=== PATIENT | female | born 2000 | race Caucasian/White ===

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

== ENCOUNTER 2022-02-27 14:21 | Emergency (ER) | payer OTHER, SELFPAY ==
[2022-02-27] VITALS (9 sets, daily range): BP systolic 111–145; BP diastolic 60–101; PULSE 77–105; RESP 18–20; TEMP 36.6–37.1; O2SAT 97–100; BMI 29.0
--- NOTE | 2022-02-27 14:18 | ECG_ITS ---
APPROVED REPORT Exam: Resting ECG HR:104 bpm ECG Measurements Heart Rate 104 AXES AK 135 P 18 QRSd 72 QRS 15 QT 316 T 22 QTc 377 Conclusion SINUS TACHYCARDIA Old anteroseptal changes ABNORMAL RHYTHM ECG UNCONFIRMED REPORT Electronically signed by : Dinesh Krishnan MD 02/28/2022 21:13:16
--- NOTE | 2022-02-27 14:40 | XR_ITS ---
FINAL REPORT CLINICAL HISTORY: chest pain COMPARISON: 12/19/2021 FINDINGS: SINGLE-VIEW CHEST The heart size is normal. The mediastinum is normal. The lungs are clear. There is no pneumothorax. IMPRESSION: No acute cardiopulmonary process. Reviewed, Interpreted and Dictated by Abdi Guerin III, MD Transcribed by Arlette Hall Authenticated and [facility]
--- NOTE | 2022-02-27 14:44 | PC.NURSE ---
XR AT BEDSIDE
[2022-02-27 14:57] LABS: Chloride 103 mmol/L (98-107); Sodium 141 mmol/L (136-145)
[2022-02-27 14:58] LABS: Potassium 3.8 mmoL/L (3.5-5.1)
[2022-02-27 15:00] LABS: Alanine Aminotransferase 24 U/L (12-78); Alkaline Phosphatase 141 U/L (38-126); Aspartate Amino Transferase 35 U/L (14-36); Basophils # 0.2 K/mm3 (0-0.2); Basophils % 1.8 % (0.1-2.0); Bilirubin,Total 0.3 mg/dl (0.2-1.3); Blood Urea Nitrogen 21 mg/dl (7-17); Creatinine Clearance Estimated 116 mL/min (50-200); Eosinophils # 0.3 K/mm3 (0.0-0.4); Eosinophils % 2.4 % (0.1-12.0); Estimated Glomerular Filt Rate 71 ml/min (>60); GFR (African American) 86 ML/MIN (>60); Hematocrit 40.6 % (37.0-47.0); Hemoglobin 13.3 g/dL (12.2-16.2); Lymphocytes # 2.9 K/mm3 (0.7-4.5); Mean Corpuscular HGB Conc 32.7 g/dL (31.8-35.4); Mean Corpuscular Hemoglobin 30.3 pg (27.0-31.2); Mean Corpuscular Volume 92.5 fl (81-99); Mean Platelet Volume 8.4 fl (7.4-10.4); Monocytes # 0.5 K/mm3 (0.1-1.0); Monocytes % 4.1 % (1.7-9.3); Neutrophils # 7.1 K/mm3 (1.8-7.8); Neutrophils % 64.8 % (37.0-80.0); Platelet Count 389 K/mm3 (142-424); Red Blood Count 4.39 M/mm3 (4.20-5.40); Red Cell Distribution Width 14.3 % (11.5-17.5); White Blood Count 10.9 K/mm3 (4.5-13.0)
--- NOTE | 2022-02-27 15:00 | PC.NURSE ---
PT MEDICATED PER EMAR, DENIES NEEDS AT THIS TIME. CALL LIGHT WITHIN REACH
[2022-02-27 15:01] LABS: Albumin Level 4.6 g/dl (3.5-5.0); Albumin/Globulin Ratio 1.5 (1.1-1.8); Anion Gap 16.8 mEq/L (5-15); Calcium 9.2 mg/dl (8.4-10.2); Carbon Dioxide 25 mmol/L (22.0-30.0); Globulin 3.1 g/dL (1.3-3.2); Glucose 116 mg/dl (74-100); Total Protein,Serum 7.7 g/dl (6.3-8.2)
--- NOTE | 2022-02-27 15:01 | HMH.EDGENADL ---
Discharge Plan Disposition Patient Disposition: Home, Self-Care Condition: Good Chief Complaint: Chest Pain Prescriptions Prescriptions: No Action dicyclomine 10 mg capsule 10 mg PO BID Qty: 60 0RF polyethylene glycol 3350 [Miralax] 17 gram/dose powder 17 g PO DAILY Qty: 238 0RF hydroxyzine pamoate 25 mg capsule See Rx Instructions .ROUTE .COMPLEX Qty: 60 0RF Dose Instruction: TAKE 1 CAPSULE BY MOUTH THREE TIMES DAILY NEEDED FOR ITCHING Rx Instructions: TAKE 1 CAPSULE BY MOUTH THREE TIMES DAILY NEEDED FOR ITCHING famotidine 20 MG tablet 20 mg PO DAILY cariprazine 1.5 MG capsule 1.5 mg PO DAILY emrbyljhtjazbph-ccwigziob-UF 118 ML syrup 5 ml PO Q6HP PRN (Reason: Cough) Qty: 240 0RF ondansetron 4 MG tablet,disintegrating 4 mg PO Q8HP PRN (Reason: Nausea) Qty: 20 0RF azithromycin 500 MG tablet 500 mg PO DAILY Qty: 3 0RF albuterol sulfate 8.5 GM HFA aerosol inhaler 6.7 gm IH Q4-6H PRN (Reason: Dyspnea) Qty: 1 0RF prednisone 20 MG tablet 20 mg PO DAILY Qty: 5 0RF benzonatate 100 MG capsule 100 mg PO TIDP PRN (Reason: Cough) Qty: 30 0RF ondansetron 4 MG tablet,disintegrating 4 mg PO Q8HP PRN (Reason: Nausea) Qty: 12 0RF Referrals Follow up/Referrals: Loi Simpson APRN [Primary Care Provider] - See instructions Activity Restrictions/Add. Instructions Additional Instructions/Restrictions: Tylenol and ibuprofen for any body aches or fevers follow-up with your primary care physician and return to the ER for any new or worsening symptoms. Clinical Impressions Clinical Impression: Upper respiratory infection, viral, Atypical chest pain Instructions Patient Instructions: DI for Atypical Chest Pain Discharge ED Provider: Nelson Gomes Adult HPI General Chief complaint: Chest Pain Stated complaint: CHEST PRESSURE Time Seen by Provider: 02/27/22 14:29 Mode of Arrival: Ambulatory Limitations: No Limitations Description of Symptoms (Recalled from ER Triage Doc. by RN): PT C/O CHEST PRESSURE AND COUGH SINCE ABOUT MIDNIGHT. REPORTS PAIN CONSTANT. PAIN IN UPPER CHEST. HAS HAD SIMILAR PAIN ABOUT 1 MONTH AGO History of Present Illness HPI narrative: 22-year-old female who presents with chest pressure and cough since about midnight. Pain has been constant woke her up this morning and states it is similar to the presentation she has had here previously she does have depression and anxiety takes medication daily. Denies fevers chills or body aches no productive cough. No radiation of the pain no associated diaphoresis. Related Data Home Medications Medication Instructions Recorded Confirmed cariprazine 1.5 mg capsule 1.5 mg PO DAILY Anxiety 11/08/21 11/08/21 famotidine 20 mg tablet 20 mg PO DAILY acid reflux 11/08/21 11/08/21 Previous Rx's Medication Instructions Recorded dicyclomine 10 mg capsule 10 mg PO BID #60 caps 10/05/21 polyethylene glycol 3350 17 17 g PO DAILY #238 grams 11/04/21 gram/dose oral powder (Miralax) klalohpvbotuivz-coefggsrbzldegs-FY 5 ml PO Q6HP PRN Cough #240 mL 11/08/21 2 mg-30 mg-10 mg/5 mL oral syrup ondansetron 4 mg disintegrating 4 mg PO Q8HP PRN Nausea #20 tabs 11/08/21 tablet benzonatate 100 mg capsule 100 mg PO TIDP PRN Cough #30 caps 11/30/21 ondansetron 4 mg disintegrating 4 mg PO Q8HP PRN Nausea #12 tabs 11/30/21 tablet albuterol sulfate 90 mcg/actuation 6.7 gm inhalation Q4-6H PRN 12/19/21 aerosol inhaler Dyspnea ##1 azithromycin 500 mg tablet 500 mg PO DAILY #3 tabs 12/19/21 prednisone 20 mg tablet 20 mg PO DAILY Breathing problems 12/19/21 #5 tabs hydroxyzine pamoate 25 mg capsule See Rx Instructions .Route 02/16/22 .COMPLEX #60 caps Allergies Allergy/AdvReac Type Severity Reaction Status Date / Time amoxicillin [AMOXICILLIN] Allergy Mild Verified 11/30/21 08:29 Penicillins Allergy Verified 11/30/21 08:[address] [facility] 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 (Reviewed 02/27/22 @
[2022-02-27 15:17] LABS: Troponin I < 0.01 ng/ml (0.00-0.034)
--- NOTE | 2022-02-27 16:00 | PC.NURSE ---
ROUNDED ON PT AT THIS TIME, PT REPORTS FEELING BETTER. CALL LIGHT WITHIN REACH. NO NEEDS VOICED
[2022-02-27 17:49] LABS: Troponin I < 0.01 ng/ml (0.00-0.034)
[2022-02-27 18:09] LABS: Urine Pregnancy, HCG Qual. Negative (Negative)
== END 2022-02-27 18:27 | disposition home or self-care (01) ==
PROVIDERS: Emergency Provider Student in an Organized Health Care Education/Training Program; PCP Nurse Practitioner Family
DX: R07.89 Other chest pain (principal); R06.02 Shortness of breath; M79.10 Myalgia, unspecified site; J06.9 Acute upper respiratory infection, unspecified; R05.9 Cough, unspecified; R11.0 Nausea; G43.909 Migraine, unspecified, not intractable, without status migrainosus; G47.00 Insomnia, unspecified; F41.0 Panic disorder [episodic paroxysmal anxiety]; F32.A Depression, unspecified; F41.9 Anxiety disorder, unspecified; Z79.51 Long term (current) use of inhaled steroids; Z79.52 Long term (current) use of systemic steroids; Z79.899 Other long term (current) drug therapy; Z88.0 Allergy status to penicillin; Z88.1 Allergy status to other antibiotic agents; Z88.3 Allergy status to other anti-infective agents; Z87.891 Personal history of nicotine dependence
CPT/HCPCS: 71045; 80053; 81025; 84484; 85025; 93005; 96361; 96374; 99285

== ENCOUNTER → 2022-02-28 13:28 | Outpatient (CLI) | payer OTHER, SELFPAY ==
[2022-02-28 12:32] LABS: Adenovirus,PCR Not Detected (NotDetected); Bordetella Pertussis Not Detected (NotDetected); Chlamydophila Pneumoniae, PCR Not Detected (NotDetected); Coronavirus 19, PCR Not Detected (NotDetected); Coronavirus 229E Not Detected (NotDetected); Coronavirus NL63 Not Detected (NotDetected); Coronavirus OC43 Not Detected (NotDetected); Coronovirus HKU1,PCR Not Detected (NotDetected); Human Metapneumovirus Not Detected (NotDetected); Influenza A, PCR Not Detected (NotDetected); Influenza AH1, 2009 Not Detected (NotDetected); Influenza AH1, PCR Not Detected (NotDetected); Influenza AH3,PCR Not Detected (NotDetected); Influenza B, PCR Not Detected (NotDetected); Mycoplasma Pneumoniae, PCR Not Detected (NotDetected); Parainfluenza 1, PCR Not Detected (NotDetected); Parainfluenza 2, PCR Not Detected (NotDetected); Parainfluenza 3, PCR Not Detected (NotDetected); Parainfluenza 4, PCR Not Detected (NotDetected); Respiratory Syncytial Virus Not Detected (NotDetected)
[2022-02-28 14:56] LABS: Rhinovirus/Enterovirus Detected (NotDetected)
== END ==
LOC: LAB.DROPOF 13:29
PROVIDERS: PCP Family Medicine; Visit Provider Family Medicine
DX: Z20.822 Contact with and (suspected) exposure to COVID-19 (principal); R69 Illness, unspecified; B34.8 Other viral infections of unspecified site
CPT/HCPCS: 87581; 87632; 87798; C9803; U0003; U0005

== ENCOUNTER 2022-03-12 19:10 | Emergency (ER) | payer OTHER, SELFPAY ==
[2022-03-12 19:35] VITALS: BP 131/89; PULSE 109; RESP 19; TEMP 37.6; O2SAT 98; BMI 29.7
[2022-03-12 19:49] LABS: UTC Influenza A Antigen Negative (Negative)
[2022-03-12 19:50] VITALS: BP 131/89; PULSE 109; RESP 19; TEMP 37.6; O2SAT 98
[2022-03-12 19:50] LABS: UTC Influenza B Antigen Negative (Negative)
--- NOTE | 2022-03-12 19:55 | EXP.UTC ---
Discharge Plan Disposition Patient Disposition: Home, Self-Care Condition: Good Prescriptions Prescriptions: No Action dicyclomine 10 mg capsule 10 mg PO BID Qty: 60 0RF polyethylene glycol 3350 [Miralax] 17 gram/dose powder 17 g PO DAILY Qty: 238 0RF prednisone 20 mg tablet See Rx Instructions .ROUTE .COMPLEX Qty: 15 0RF Rx Instructions: two daily for 5 days, one daily for 5 days; cephalexin 500 mg capsule 500 mg PO Q8H 10 Days Qty: 30 0RF albuterol sulfate 90 mcg/actuation HFA aerosol inhaler 2 inh IH Q4-6H PRN (Reason: Dyspnea) Qty: 8.5 10RF hydroxyzine pamoate 25 mg capsule See Rx Instructions .ROUTE .COMPLEX Qty: 60 0RF Dose Instruction: TAKE 1 CAPSULE BY MOUTH THREE TIMES DAILY NEEDED FOR ITCHING Rx Instructions: TAKE 1 CAPSULE BY MOUTH THREE TIMES DAILY NEEDED FOR ITCHING famotidine 20 MG tablet 20 mg PO DAILY cariprazine 1.5 MG capsule 1.5 mg PO DAILY Referrals Follow up/Referrals: Deandre King MD [Primary Care Provider] - See instructions Activity Restrictions/Add. Instructions Additional Instructions/Restrictions: No sign of a bacterial infection. Likely viral. Viruses can take 7-14 days to run their course. Nasal saline and bulb syringe or nose Michelle to remove nasal drainage to help with nasal congestion. Hard to eat, drink, sleep with nasal congestion so important to keep this cleaned out. Monitor temp. Tylenol or Motrin as needed for pain or fever Encourage fluids, water, Gatorade, Powerade, Pedialyte if /toddler/child Warm salt water gargles Warm fluids Sore throat lozenges Sleep elevated Humidifier/vaporizer Follow-up immediately for new or worsening symptoms or no noticeable improvement over the next 48-72 hours. Clinical Impressions Clinical Impression: Upper respiratory infection Instructions Patient Instructions: DI for Viral Upper Respiratory Infection -- Adult Discharge ED Provider: Shawna ([facility])Amie [facility] HPI General Stated complaint: temp 103.2 , Mode of Arrival: Ambulatory Source of Information: Patient Limitations: No Limitations Time Seen by Provider: 03/12/22 19:55 Description of Symptoms (Recalled from Triage Doc. by RN): PATIENT C/O FEVER, HEADACHE, CHILLS, VOMITING, SORE THROAT AND BODY ACHES SINCE THIS MORNING HEENT Symptoms (Recalled from RN notes): Yes Resp Symptoms (Recalled from RN notes): No Skin Symptoms (Recalled from RN notes): No MS Symptoms (Recalled from RN notes): No Functional Status (Recalled from RN notes): WNL History of Present Illness Provider Complaint: 22 yr old female presents for fever, sore throat, body aches and chills that started this am Related Data Home Medications Medication Instructions Recorded Confirmed cariprazine 1.5 mg capsule 1.5 mg PO DAILY Anxiety 11/08/21 02/28/22 famotidine 20 mg tablet 20 mg PO DAILY acid reflux 11/08/21 02/28/22 Previous Rx's Medication Instructions Recorded dicyclomine 10 mg capsule 10 mg PO BID #60 caps 10/05/21 polyethylene glycol 3350 17 17 g PO DAILY #238 grams 11/04/21 gram/dose oral powder (Miralax) hydroxyzine pamoate 25 mg capsule See Rx Instructions .Route 02/16/22 .COMPLEX #60 caps albuterol sulfate 90 mcg/actuation 2 inh inhalation Q4-6H PRN Dyspnea 02/28/22 aerosol inhaler #8.5 grams cephalexin 500 mg capsule 500 mg PO Q8H 10 days #30 caps 02/28/22 prednisone 20 mg tablet See Rx Instructions .Route 02/28/22 .COMPLEX #15 tabs Allergies Allergy/AdvReac Type Severity Reaction Status Date / Time amoxicillin [AMOXICILLIN] Allergy Mild Verified 02/28/22 09:03 Penicillins Allergy Verified 02/28/22 09:03 Worker's Comp Is this a Worker's Comp case?: No PFSH PFSH 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 , [employer]) Anxiety Depression History of anemia History of gastroesophageal reflux (GERD) Insomnia Migraine Thyroid disease Surgical History (Reviewed 03/12/22
[2022-03-12 20:06] LABS: UTC Strep Screen (Rapid) Positive (Negative)
== END 2022-03-12 20:05 | disposition home or self-care (01) ==
PROVIDERS: Emergency Provider Nurse Practitioner Family; PCP Family Medicine
DX: J06.9 Acute upper respiratory infection, unspecified (principal)
CPT/HCPCS: 87804; 87880; 99212; G0463

== ENCOUNTER 2022-04-16 11:55 | Emergency (ER) | payer OTHER, SELFPAY ==
[2022-04-16 12:22] LABS: UTC Influenza A Antigen Negative (Negative); UTC Strep Screen (Rapid) Positive (Negative)
[2022-04-16 12:23] LABS: UTC Influenza B Antigen Negative (Negative)
[2022-04-16 12:25] VITALS: BP 124/81; PULSE 99; RESP 16; TEMP 37.5; O2SAT 100
--- NOTE | 2022-04-16 12:44 | EXP.UTC ---
Discharge Plan Disposition Patient Disposition: Home, Self-Care Condition: Good Prescriptions Prescriptions: New cefdinir 300 mg capsule 300 mg PO BID Qty: 20 0RF No Action dicyclomine 10 mg capsule 10 mg PO BID Qty: 60 0RF polyethylene glycol 3350 [Miralax] 17 gram/dose powder 17 g PO DAILY Qty: 238 0RF prednisone 20 mg tablet See Rx Instructions .ROUTE .COMPLEX Qty: 15 0RF Rx Instructions: two daily for 5 days, one daily for 5 days; cephalexin 500 mg capsule 500 mg PO Q8H 10 Days Qty: 30 0RF albuterol sulfate 90 mcg/actuation HFA aerosol inhaler 2 inh IH Q4-6H PRN (Reason: Dyspnea) Qty: 8.5 10RF famotidine 20 MG tablet 20 mg PO DAILY cariprazine 1.5 MG capsule 1.5 mg PO DAILY hydroxyzine pamoate 25 mg capsule See Rx Instructions .ROUTE .COMPLEX Rx Instructions: TAKE 1 CAPSULE BY MOUTH THREE TIMES DAILY NEEDED FOR ITCHING azithromycin [azithromycin] 250 mg tablet 250 mg PO DIRECTED 4 Days Qty: 4 0RF Rx Instructions: one (1) tablet day #2 thru #5 -first dose given in [facility] Referrals Follow up/Referrals: Carli Georges PA [Primary Care Provider] - See instructions Activity Restrictions/Add. Instructions Additional Instructions/Restrictions: *Monitor Temp, Over the counter Motrin or Tylenol as directed/as needed Tylenol every 4 hours and Motrin every 6 hours (as long as your family doctor has told you that you can take it) for fever or pain. and straight to ER if unable to lower temp less than 101.0 after medication given *Warm salt water gargles may help to soothe the throat *Throat Lozenges? *Warm fluids like tea with honey may help to soothe the throat? *Sleep elevated *Humidifier/Vaporizer *If you did not take Penicillin shot or was unable to, start taking antibiotic immediately and make sure that you take it for the FULL length of time although you should start to feel better in 24-48 hours *change toothbrush and toothpaste 24-48 hours after starting to take antibiotics so you do not reinfect yourself Monitor Temp. Tylenol and/or Ibuprofen as needed. ER if fever is no less than 101 despite alternating Tylenol and Ibuprofen * Encourage fluids, water, Gatorade, powerade, pedialyte if infant/toddler/or child *Cold fluids, popsicles and ice cream may feel good on his throat Follow up IMMEDIATELY for new or worsening symptoms or no Noticeable improvement over the next 48-72 hours. 911 for difficulty breathing or swallowing Clinical Impressions Clinical Impression: Strep throat Instructions Patient Instructions: Strep Throat, DI for Strep Throat Discharge ED Provider: Rosa Purcell [facility] HPI General Stated complaint: Sore throat,Bodyache,Headache Mode of Arrival: Ambulatory Source of Information: Patient Limitations: No Limitations Time Seen by Provider: 04/16/22 12:44 Description of Symptoms (Recalled from Triage Doc. by RN): pt comes in with c/o body aches, sore throat, headaches, sweats/chills, fever that began yesterday HEENT Symptoms (Recalled from RN notes): Yes Resp Symptoms (Recalled from RN notes): Yes Skin Symptoms (Recalled from RN notes): No MS Symptoms (Recalled from RN notes): No Functional Status (Recalled from RN notes): n/a History of Present Illness Provider Complaint: Patient states that she started feeling bad yesterday states that she has been having fever, chills, sore throat and headache along with feeling achy all over State that today her throat was still hurting and feels like it does when she has strep throat Related Data Home Medications Medication Instructions Recorded Confirmed cariprazine 1.5 mg capsule 1.5 mg PO DAILY Anxiety 11/08/21 04/16/22 famotidine 20 mg tablet 20 mg PO DAILY acid reflux 11/08/21 02/28/22 hydroxyzine pamoate 25 mg capsule See Rx Instructions .Route 04/16/22 04/16/22 .COMPLEX Anxiety Previous Rx's Medication Instructions Rec
[2022-04-16 12:56] VITALS: BP 124/81; PULSE 99; RESP 16; TEMP 37.5
== END 2022-04-16 13:02 | disposition home or self-care (01) ==
PROVIDERS: Emergency Provider Nurse Practitioner; PCP Physician Assistant
DX: J10.1 Influenza due to other identified influenza virus with other respiratory manifestations (principal)
CPT/HCPCS: 87804; 87880; 99212; G0463

== ENCOUNTER → 2022-06-02 14:29 | Outpatient (CLI) | payer OTHER, SELFPAY ==
--- NOTE | 2022-06-02 14:32 | US_ITS ---
FINAL REPORT CLINICAL HISTORY: pelvic pain COMPARISON: None FINDINGS: Transvaginal sonographic images of the pelvis were obtained. The uterus measures 4.3 x 3.5 x 5.3 cm. The endometrium is prominent but within normal limits at 12 mm. No uterine mass is identified. The right ovary measures 4.1 cm in length and left ovary measures 1.8 cm in length. There is a septated cystic mass in the right ovary measuring 2.3 cm, favor complex cyst. The left ovary is unremarkable. There is a small amount of pelvic free fluid, physiologic or reactive. Normal blood flow seen to the ovaries. IMPRESSION: Right ovarian complex cyst. Reviewed, Interpreted and Dictated by Abdi Guerin III, MD Transcribed by Krysten Thomas Authenticated and [facility]
== END ==
LOC: RAD 14:30
PROVIDERS: PCP Nurse Practitioner Family; Visit Provider Obstetrics & Gynecology
DX: R10.2 Pelvic and perineal pain (principal)
CPT/HCPCS: 76830

== ENCOUNTER 2022-06-04 20:34 | Emergency (ER) | payer OTHER, SELFPAY ==
[2022-06-04 20:35] VITALS: BP 146/96; PULSE 103; RESP 20; TEMP 37; O2SAT 98; BMI 31.3
--- NOTE | 2022-06-04 20:54 | HMH.EDUPEXT ---
Discharge Plan Disposition Patient Disposition: Home, Self-Care Prescriptions Prescriptions: New meloxicam 15 mg tablet 15 mg PO DAILY Qty: 10 0RF No Action drospirenone-ethinyl estradiol [MICHELLE (28)] 3-0.02 mg tablet 1 tab PO DAILY Qty: 28 3RF hydroxyzine pamoate 25 mg capsule See Rx Instructions .ROUTE .COMPLEX Qty: 60 0RF Dose Instruction: TAKE 1 CAPSULE BY MOUTH THREE TIMES DAILY NEEDED FOR ITCHING Rx Instructions: TAKE 1 CAPSULE BY MOUTH THREE TIMES DAILY NEEDED FOR ITCHING cariprazine 1.5 MG capsule 1.5 mg PO DAILY Referrals Follow up/Referrals: Carli Georges PA [Primary Care Provider] - See instructions Clinical Impressions Clinical Impression: Sprain of right upper arm Instructions Patient Instructions: Sprain Discharge ED Provider: Sola (ED)Adolfo Upper Extremity HPI General Chief Complaint: Extremity Injury, Upper Stated Complaint: Right arm pain Time Seen by Provider: 06/04/22 20:54 Mode of Arrival: Ambulatory Source of Information: Patient and Medical Record Limitations: No Limitations Description of Symptoms (Recalled from ER Triage Doc. by RN): pt reports that she has had pain in her bicep for a long time tonight she stated that while Bowling she had pain that goes up into her shoulder. the pt stated she thinks she pulled something History of Present Illness HPI narrative: hx of biceps tendon pain at times and tonight while bowling has rt shoulder pain also - no other trauma MD complaint: injury to: right, shoulder and elbow Onset (ago): hour(s) Other Extremity Injury: Right: elbow and shoulder Other injuries: none Handedness: right Place: home Severity: mild Exacerbating factors: movement of extremity Context: sports-related injury Associated symptoms: denies other symptoms Related Data Home Medications Medication Instructions Recorded Confirmed cariprazine 1.5 mg capsule 1.5 mg PO DAILY Anxiety 11/08/21 05/24/22 Previous Rx's Medication Instructions Recorded hydroxyzine pamoate 25 mg capsule See Rx Instructions .Route 05/23/22 .COMPLEX #60 caps MICHELLE (28) 3 mg-0.02 mg tablet 1 tab PO DAILY #28 tabs 05/24/22 (drospirenone-ethinyl estradiol) meloxicam 15 mg tablet 15 mg PO DAILY #10 tabs 06/04/22 Allergies Allergy/AdvReac Type Severity Reaction Status Date / Time amoxicillin [AMOXICILLIN] Allergy Mild Verified 05/24/22 13:12 Penicillins Allergy Verified 05/24/22 13:12 [facility] Disclaimer: The information contained in this section may have been updated after the patient was seen, as this information can be updated by other users. 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 Acne Anxiety Depression History of anemia History of gastroesophageal reflux (GERD) Insomnia Migraine PCOS (polycystic ovarian syndrome) Pelvic pain Tendinitis of right forearm Thyroid disease Surgical History History of tympanostomy tube placement Family History Other Diabetes Social History Smoking Status: Never smoker second hand exposure: No alcohol intake: never substance use type: denies use current occupational status: other Travel in the last 8 weeks: None household members: family housing: house number of children: 0 current occupational exposures/hazards: No ROS Obtained: Yes All systems reviewed & no additional complaints except as documented Physical Exam General General appearance: alert Head Head exam: normocephalic Eye Eye exam: Present PERRL and EOMI ENT ENT exam: Present mucous membranes moist Neck Neck exam: Present trachea midline Respiratory Respiratory exam: Absent respiratory distress Cardiovascular Cardiovascular exam: Present regular rate Abdominal Exam Abdominal exam: Present soft
[2022-06-04 21:14] VITALS: BP 137/79; PULSE 87; RESP 20; TEMP 37; O2SAT 98
--- NOTE | 2022-06-04 21:17 | PC.NURSE ---
Dr. Selby at [facility] speaking with pt
== END 2022-06-04 21:16 | disposition home or self-care (01) ==
PROVIDERS: Emergency Provider Emergency Medicine; PCP Physician Assistant
DX: S46.911A Strain of unspecified muscle, fascia and tendon at shoulder and upper arm level, right arm, initial encounter (principal); X58.XXXA Exposure to other specified factors, initial encounter; F41.9 Anxiety disorder, unspecified; K21.9 Gastro-esophageal reflux disease without esophagitis; D64.9 Anemia, unspecified; G43.909 Migraine, unspecified, not intractable, without status migrainosus; E28.2 Polycystic ovarian syndrome; M65.231 Calcific tendinitis, right forearm; Z83.3 Family history of diabetes mellitus
CPT/HCPCS: 99283; 99284

== ENCOUNTER 2022-06-13 17:15 | Emergency (ER) | payer OTHER, SELFPAY ==
[2022-06-13 17:27] VITALS: BP 137/88; PULSE 119; RESP 16; TEMP 36.7; O2SAT 98; BMI 31.3
[2022-06-13 17:55] VITALS: BP 137/88; PULSE 119; RESP 20; TEMP 36.7; O2SAT 98; BMI 31.4
--- NOTE | 2022-06-13 18:35 | EXP.UTC ---
Discharge Plan Disposition Patient Disposition: Home, Self-Care Condition: Good Prescriptions Prescriptions: No Action cariprazine 1.5 MG capsule 1.5 mg PO DAILY hydroxyzine pamoate 25 mg capsule See Rx Instructions .ROUTE .COMPLEX Rx Instructions: TAKE 1 CAPSULE BY MOUTH THREE TIMES DAILY NEEDED FOR ITCHING drospirenone-ethinyl estradiol [MICHELLE (28)] 3-0.02 mg tablet 1 tab PO DAILY Referrals Follow up/Referrals: Loi Simpson APRN [Primary Care Provider] - See instructions Activity Restrictions/Add. Instructions Additional Instructions/Restrictions: *Monitor Temp, Over the counter Motrin or Tylenol as directed/as needed Tylenol every 4 hours and Motrin every 6 hours (as long as your family doctor has told you that you can take it) for fever or pain. and straight to ER if unable to lower temp less than 101.0 after medication given *Warm salt water gargles may help to soothe the throat *Throat Lozenges? *Warm fluids like tea with honey may help to soothe the throat? *Sleep elevated *Humidifier/Vaporizer Follow up IMMEDIATELY for new or worsening symptoms or no Noticeable improvement over the next 48-72 hours. 911 for difficulty breathing or swallowing You were tested for today for COVID19 your test result should be back in the next 24-48 hours, you may check your results on the [facility] [employer] [facility] Clinical Impressions Clinical Impression: Migraine, Viral syndrome Stand Alone Forms Stand Alone Forms: Work/School Release Instructions Patient Instructions: DI for Viral Syndrome Discharge ED Provider: Rosa Purcell [facility] General Stated complaint: CHAN Mode of Arrival: Ambulatory Source of Information: Patient Limitations: No Limitations Time Seen by Provider: 06/13/22 18:36 Description of Symptoms (Recalled from Triage Doc. 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 06/13/22 06/13/22 estradiol 0.02 mg tablet (MICHELLE (28)) hydroxyzine pamoate 25 mg capsule See Rx Instructions .Route 06/13/22 06/13/22 .COMPLEX . Allergies Allergy/AdvReac Type Severity Reaction Status Date / Time amoxicillin [AMOXICILLIN] Allergy Mild Verified 06/13/22 18:07 Penicillins Allergy Verified 06/13/22 18:07 Worker's Comp Is this a Worker's Comp case?: No [facility] Disclaimer: The information contained in this section may have been updated after the patient was seen, as this information can be updated by other users. 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 Acne Anxiety Depression History of anemia History of gastroesophageal reflux (GERD) Insomnia Migraine PCOS (polycystic ovarian syndrome) Pelvic pain Tendinitis of right forearm Thyroid disease Surgical History History of tympanostomy tube placement Family History Other Diabetes Social History Smoking Status: Never smoker second hand exposure: No al
[2022-06-13 18:46] LABS: UTC Pregnancy Test, Urine Negative (Negative)
[2022-06-13 19:12] LABS: Coronavirus 19, PCR Not Detected (NotDetected); Influenza A, PCR Not Detected (NotDetected); Influenza B, PCR Not Detected (NotDetected)
[2022-06-13 19:30] VITALS: BP 137/88; PULSE 110; RESP 20; TEMP 36.7; O2SAT 98
== END 2022-06-13 19:29 | disposition home or self-care (01) ==
LOC: ER 17:24 → UTC 17:26
PROVIDERS: Emergency Provider Nurse Practitioner; PCP Nurse Practitioner Family
DX: G43.909 Migraine, unspecified, not intractable, without status migrainosus (principal); B34.9 Viral infection, unspecified
CPT/HCPCS: 81025; 96372; 99212; 99214; C9803; G0463; U0003; U0005

== ENCOUNTER 2022-07-17 08:09 | Emergency (ER) | payer OTHER, SELFPAY ==
[2022-07-17 08:11] VITALS: BP 129/96; PULSE 91; RESP 17; TEMP 36.5; O2SAT 99; BMI 31.3
[2022-07-17 08:14] VITALS: BP 129/96; PULSE 97; O2SAT 99
--- NOTE | 2022-07-17 08:19 | XR_ITS ---
FINAL REPORT CLINICAL HISTORY: 5th [place] base pain FINDINGS: 3 views of the right foot were obtained. There is no acute fracture or dislocation. The joint spaces are intact. The soft tissues are unremarkable. IMPRESSION: No acute process. Reviewed, Interpreted and Dictated by Darrius Corado MD Transcribed by Lance Rome Authenticated and . [facility]
--- NOTE | 2022-07-17 08:26 | PC.NURSE ---
PT TO XR AT THIS TIME
--- NOTE | 2022-07-17 08:31 | PC.NURSE ---
PT RETURNED FROM XR
--- NOTE | 2022-07-17 08:35 | HMH.EDGENADL ---
Discharge Plan Disposition Patient Disposition: Home, Self-Care Condition: Good Chief Complaint: PAIN Prescriptions Prescriptions: No Action drospirenone-ethinyl estradiol [MICHELLE (28)] 3-0.02 mg tablet 1 tab PO DAILY Qty: 28 11RF cariprazine 1.5 MG capsule 1.5 mg PO DAILY hydroxyzine pamoate 25 mg capsule See Rx Instructions .ROUTE .COMPLEX Rx Instructions: TAKE 1 CAPSULE BY MOUTH THREE TIMES DAILY NEEDED FOR ITCHING Referrals Follow up/Referrals: Loi Simpson APRN [Primary Care Provider] - See instructions Clinical Impressions Clinical Impression: Acute foot pain Instructions Patient Instructions: DI for Acute Pain -- Adult Discharge ED Provider: Sharad Alonso General Adult HPI General Chief complaint: PAIN Stated complaint: right foot pain, no accident Time Seen by Provider: 07/17/22 08:17 Mode of Arrival: Ambulatory Limitations: No Limitations Description of Symptoms (Recalled from ER Triage Doc. by RN): PT WITH C/O RIGHT FOOT PAIN. PAIN STARTED ON SUNDAY, NO INJURY. BURNING PAIN TO THE PLANTAR SURFACE OF FOOT History of Present Illness HPI narrative: 22yo F presents to the ER secondary to pain at the base of her right fifth metatarsal. Denies any specific injury. Ongoing for 3 to 4 days. No previous surgery. Related Data Home Medications Medication Instructions Recorded Confirmed cariprazine 1.5 mg capsule 1.5 mg PO DAILY Anxiety 11/08/21 06/13/22 hydroxyzine pamoate 25 mg capsule See Rx Instructions .Route 06/13/22 06/13/22 .COMPLEX . Previous Rx's Medication Instructions Recorded drospirenone 3 mg-ethinyl 1 tab PO DAILY . #28 tabs 07/13/22 estradiol 0.02 mg tablet (MICHELLE (28)) Allergies Allergy/AdvReac Type Severity Reaction Status Date / Time amoxicillin [AMOXICILLIN] Allergy Mild Verified 06/13/22 18:07 Penicillins Allergy Verified 06/13/22 18:07 [facility] Disclaimer: The information contained in this section may have been updated after the patient was seen, as this information can be updated by other users. 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 Acne Anxiety Depression History of anemia History of gastroesophageal reflux (GERD) Insomnia Migraine PCOS (polycystic ovarian syndrome) Pelvic pain Tendinitis of right forearm Thyroid disease Surgical History History of tympanostomy tube placement Family History Other Diabetes Social History Smoking Status: Never smoker second hand exposure: No alcohol intake: never substance use type: denies use current occupational status: other Travel in the last 8 weeks: None household members: family housing: house number of children: 0 current occupational exposures/hazards: No ROS Obtained: Yes Systems reviewed as appropriate & no additional complaints except as documented Physical Exam General General appearance: alert and in no apparent distress Head Head exam: atraumatic and normocephalic Eye Eye exam: Present normal appearance and PERRL Neck Neck exam: Present normal inspection and trachea midline Respiratory Respiratory exam: Present normal lung sounds bilaterally; Absent respiratory distress Cardiovascular Cardiovascular exam: Present regular rate and normal rhythm Extremities Exam Extremities exam: Present normal inspection, tenderness (Right foot, base of fifth metatarsal) and normal capillary refill; Absent edema Neurological Exam Neurological exam: Present alert and oriented X3 Psychiatric Psychiatric exam: Present normal affect Skin Skin exam: Present warm, dry and intact Medical Decision Making Kulwant Inquiry Pt receiving controlled substance: No Kulwant was queried for this patient: No Vital Signs: 07/17/22 08:11 07/17/22 08:14 07/17/22 09:00 [place]
[2022-07-17 09:00] VITALS: BP 116/82; PULSE 87; O2SAT 98
--- NOTE | 2022-07-17 09:07 | PC.NURSE ---
ROUNDED ON PT, UPDATED ON POC. NO NEEDS AT THIS TIME
[2022-07-17 09:30] VITALS: BP 113/80; PULSE 88; O2SAT 99
--- NOTE | 2022-07-17 09:33 | PC.NURSE ---
rounded on patient; no needs at this time. call light within reach
--- NOTE | 2022-07-17 09:48 | PC.NURSE ---
contacted rad to check on status xray results, rad states will send preliminary results down to ER
[2022-07-17 09:55] VITALS: BP 113/80; PULSE 80; RESP 17; TEMP 36.5; O2SAT 98
== END 2022-07-17 09:55 | disposition home or self-care (01) ==
PROVIDERS: Emergency Provider Family Medicine; PCP Nurse Practitioner Family
DX: M79.671 Pain in right foot (principal)
CPT/HCPCS: 73630; 99283; 99284

== ENCOUNTER → 2022-07-19 14:55 | Outpatient (CLI) | payer OTHER, SELFPAY ==
--- NOTE | 2022-07-19 15:04 | US_ITS ---
FINAL REPORT CLINICAL HISTORY: following right ovarian cyst COMPARISON: 06/02/2022 FINDINGS: Transvaginal sonographic images of the pelvis were obtained. The uterus measures 6.0 x 5.4 x 4.0 cm. The endometrium measures 5 mm, which is within normal limits. No uterine mass is identified. The right ovary measures 2.8 cm in length and left ovary measures 1.6 cm in length. Normal blood flow seen to the ovaries. There is a persistent or recurrent cyst in the right ovary measuring 2.7 x 1.8 cm. The previously noted internal septations in the cyst are not seen on today's exam. Findings are presumed to be physiologic. There is no evidence of free fluid. IMPRESSION: Persistent or recurrent right ovarian cyst. Findings are presumed to be physiologic however, recommend close gynecological follow-up. Reviewed, Interpreted and Dictated by Darrius Corado MD Transcribed by Candi Peace Authenticated and [facility]
== END ==
LOC: RAD 14:55
PROVIDERS: PCP Nurse Practitioner Family; Visit Provider Obstetrics & Gynecology
DX: N83.201 Unspecified ovarian cyst, right side (principal)
CPT/HCPCS: 76830

== ENCOUNTER 2022-08-04 17:56 | Emergency (ER) | payer OTHER, SELFPAY ==
[2022-08-04 18:50] VITALS: BP 131/85; PULSE 89; RESP 16; TEMP 36.9; O2SAT 99; BMI 32.1
--- NOTE | 2022-08-04 19:39 | EXP.UTC ---
Discharge Plan Disposition Patient Disposition: Home, Self-Care Condition: Good Prescriptions Prescriptions: New kezoosswotosdif-eleafltnj-GA [Bromfed DM] 2-30-10 mg/5 mL syrup 10 ml PO Q4-6H PRN (Reason: cold symptoms) Qty: 118 0RF No Action levonorgestrel-ethinyl estrad [Aviane] 0.1-20 mg-mcg tablet 1 tab PO DAILY Qty: 28 3RF cariprazine 1.5 MG capsule 1.5 mg PO DAILY hydroxyzine pamoate 25 mg capsule See Rx Instructions .ROUTE .COMPLEX Rx Instructions: TAKE 1 CAPSULE BY MOUTH THREE TIMES DAILY NEEDED FOR ITCHING Referrals Follow up/Referrals: Loi Simpson APRN [Primary Care Provider] - See instructions Clinical Impressions Clinical Impression: Acute upper respiratory infection Instructions Patient Instructions: DI for Viral Upper Respiratory Infection -- Adult Discharge ED Provider: Arleen Menard [facility] General Stated complaint: SORE THROAT EAR Mode of Arrival: Ambulatory Source of Information: Patient Limitations: No Limitations Time Seen by Provider: 08/04/22 19:31 Description of Symptoms (Recalled from Triage Doc. 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 She reports that she has had a cough, runny nose, sore throat, and diarrhea today. She states that she does not feel like she has strep or Covid as she has had these before and they felt different than what she is feeling right now. Related Data Home Medications Medication Instructions Recorded Confirmed cariprazine 1.5 mg capsule 1.5 mg PO DAILY Anxiety 11/08/21 07/21/22 hydroxyzine pamoate 25 mg capsule See Rx Instructions .Route 06/13/22 07/21/22 .COMPLEX . Previous Rx's Medication Instructions Recorded levonorgestrel-ethinyl estradiol 1 tab PO DAILY #28 tabs 07/21/22 0.1 mg-20 mcg tablet (Aviane) soyudavftzlpxwj-dswyzrsjllokpis-JX 10 ml PO Q4-6H PRN cold symptoms 08/04/22 2 mg-30 mg-10 mg/5 mL oral syrup #118 mL (Bromfed DM) Allergies Allergy/AdvReac Type Severity Reaction Status Date / Time amoxicillin [AMOXICILLIN] Allergy Mild Verified 07/21/22 14:50 Penicillins Allergy Verified 07/21/22 14:50 Worker's Comp Is this a Worker's Comp case?: [facility] Dis[facility]: The information contained in this section may have been updated after the patient was seen, as this information can be updated by other users. 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 Acne Anxiety Depression History of anemia History of gastroesophageal reflux (GERD) Insomnia Migraine PCOS (polycystic ovarian syndrome) Pelvic pain Right ovarian cyst Tendinitis of right forearm Thyroid disease Surgical History History of tympanostomy tube placement Family History Other Diabetes Social History Smoking Status: Never smoker second hand exposure: No alcohol intake: never substance use type: denies use current occupational status: other Travel in the last 8 weeks: None household members: family housing: house number of children: 0 current occupational exposures/hazards: No ROS Obtained: Yes All systems reviewed & no additional complaints except as documented Constitutional Constitutional: Reports system reviewed and no additional complaints, except as documented, Reports headache(s) and Reports malaise Eyes Eyes: Reports system reviewed and no additional complaints, except as documented ENT Ears, Nose,
[2022-08-04 19:50] LABS: UTC Influenza A Antigen Negative (Negative)
[2022-08-04 19:51] LABS: UTC Influenza B Antigen Negative (Negative)
[2022-08-04 19:52] VITALS: BP 131/85; PULSE 89; RESP 16; TEMP 36.9; O2SAT 99
== END 2022-08-04 19:55 | disposition home or self-care (01) ==
PROVIDERS: Emergency Provider Nurse Practitioner Family; PCP Nurse Practitioner Family
DX: J06.9 Acute upper respiratory infection, unspecified (principal); J02.9 Acute pharyngitis, unspecified; R05.9 Cough, unspecified
CPT/HCPCS: 87804; 99212; 99214; G0463

== ENCOUNTER 2022-09-01 18:06 | Emergency (ER) | payer OTHER, SELFPAY ==
[2022-09-01 18:06] VITALS: BP 133/87; PULSE 99; RESP 16; TEMP 37; O2SAT 97; BMI 32.8
--- NOTE | 2022-09-01 18:26 | EXP.UTC ---
Discharge Plan Disposition Patient Disposition: Home, Self-Care Condition: Good Prescriptions Prescriptions: New ciprofloxacin HCl 0.3 % drops See Rx Instructions .ROUTE .COMPLEX Qty: 5 0RF Rx Instructions: put 1 drp in right eye every 2hr x2days; then 4 times/day x5days methylprednisolone 4 mg Tablets,Dose Pack 4 mg PO DIRECTED Qty: 21 0RF ftzqybkkghahlqw-dnxqrosiz-OG [Bromfed DM] 2-30-10 mg/5 mL Syrup 2.5 ml PO Q6H PRN (Reason: Cough) Qty: 120 0RF cefdinir 300 mg capsule 300 mg PO BID Qty: 20 0RF No Action levonorgestrel-ethinyl estrad [Aviane] 0.1-20 mg-mcg tablet 1 tab PO DAILY Qty: 28 3RF cariprazine 1.5 MG capsule 1.5 mg PO DAILY hydroxyzine pamoate 25 mg capsule See Rx Instructions .ROUTE .COMPLEX Rx Instructions: TAKE 1 CAPSULE BY MOUTH THREE TIMES DAILY NEEDED FOR ITCHING nbknyslilyxcjzk-upjyajiqq-AJ [Bromfed DM] 2-30-10 mg/5 mL syrup 10 ml PO Q4-6H PRN (Reason: cold symptoms) Qty: 118 0RF Referrals Follow up/Referrals: Loi Simpson APRN [Primary Care Provider] - See instructions Activity Restrictions/Add. Instructions Additional Instructions/Restrictions: Drink plenty of fluids. Take tylenol or ibuprofen for pain or fever. Take the medications as directed. Follow up with your regular doctor. GO TO THE ER FOR ANY WORSENING SYMPTOMS Throw your tooth brush away and get a new one. Clinical Impressions Clinical Impression: Strep throat, Conjunctivitis of right eye Stand Alone Forms Stand Alone Forms: Work/School Release Instructions Patient Instructions: Strep Throat, DI for Strep Throat Discharge ED Provider: Syed Orourke [facility] General Stated complaint: right eye redness Time Seen by Provider: 09/01/22 18:25 History of Present Illness Provider Complaint: She states that for the past 2 days she has had sore throat and right eye redness and matting. She denies fever. She denies any known eye injury or foreign body. Related Data Home Medications Medication Instructions Recorded Confirmed cariprazine 1.5 mg capsule 1.5 mg PO DAILY Anxiety 11/08/21 07/21/22 hydroxyzine pamoate 25 mg capsule See Rx Instructions .Route 06/13/22 07/21/22 .COMPLEX . Previous Rx's Medication Instructions Recorded levonorgestrel-ethinyl estradiol 1 tab PO DAILY #28 tabs 07/21/22 0.1 mg-20 mcg tablet (Aviane) nwfgheolpvuxowv-orbviabiwgkojfw-HE 10 ml PO Q4-6H PRN cold symptoms 08/04/22 2 mg-30 mg-10 mg/5 mL oral syrup #118 mL (Bromfed DM) xuxdpcobgfinptt-oqjhtbartkqotba-FL 2.5 ml PO Q6H PRN Cough #120 mL 09/01/22 2 mg-30 mg-10 mg/5 mL oral syrup (Bromfed DM) cefdinir 300 mg capsule 300 mg PO BID #20 caps 09/01/22 ciprofloxacin HCl 0.3 % eye drops See Rx Instructions ophthalmic 09/01/22 (eye) .COMPLEX #5 mL methylprednisolone 4 mg tablets in 4 mg PO DIRECTED #21 tabs 09/01/22 a dose pack Allergies Allergy/AdvReac Type Severity Reaction Status Date / Time amoxicillin [AMOXICILLIN] Allergy Mild Verified 07/21/22 14:50 Penicillins Allergy Verified 07/21/22 14:50 PFSH PFSH Disclaimer: The information contained in this section may have been updated after the patient was seen, as this information can be updated by other users. 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 Acne Anxiety Depression History of anemia History of gastroesophageal reflux (GERD) Insomnia Migraine PCOS (polycystic ovarian syndrome) Pelvic pain Right ovarian cyst Tendinitis of right forearm Thyroid disease Surgical History History of tympanostomy tube placement Family History Other Diabetes Social History Smoking Status: Never smoker second hand exposure: No alcohol intake: never substance use type: denies use current occupa
[2022-09-01 18:35] LABS: UTC Strep Screen (Rapid) Positive (Negative)
[2022-09-01 19:04] VITALS: BP 133/87; PULSE 99; RESP 16; TEMP 37; O2SAT 97
== END 2022-09-01 19:07 | disposition home or self-care (01) ==
PROVIDERS: Emergency Provider Nurse Practitioner Family; PCP Nurse Practitioner Family
DX: J02.0 Streptococcal pharyngitis (principal); H10.31 Unspecified acute conjunctivitis, right eye
CPT/HCPCS: 87880; 99212; 99214; G0463

== ENCOUNTER 2022-10-02 17:02 | Emergency (ER) | payer OTHER, SELFPAY ==
[2022-10-02 17:05] VITALS: BP 129/80; PULSE 86; RESP 21; TEMP 37.1; O2SAT 99; BMI 33.5
--- NOTE | 2022-10-02 17:18 | EXP.UTC ---
Discharge Plan Disposition Patient Disposition: Home, Self-Care Condition: Good Prescriptions Prescriptions: New cefdinir 300 mg capsule 300 mg PO BID Qty: 20 0RF No Action cariprazine 1.5 MG capsule 1.5 mg PO DAILY levonorgestrel-ethinyl estrad [Aviane] 0.1-20 mg-mcg tablet 1 tab PO DAILY hydroxyzine pamoate 25 mg capsule 25 mg PO DAILY Rx Instructions: TAKE 1 CAPSULE BY MOUTH THREE TIMES DAILY NEEDED FOR ITCHING Referrals Follow up/Referrals: Loi Simpson APRN [Primary Care Provider] - See instructions Activity Restrictions/Add. Instructions Additional Instructions/Restrictions: Take medication as prescribed Follow up with your Family Doctor if no improvement or any worsening of symptoms Return if needed Straight to ER if any life threatening symptoms Clinical Impressions Clinical Impression: Otitis media Instructions Patient Instructions: Middle Ear Infection, Cefdinir Discharge ED Provider: Rosa Purcell [facility] General Stated complaint: ear and head pain Mode of Arrival: Ambulatory Source of Information: Patient Limitations: No Limitations Time Seen by Provider: 10/02/22 17:18 Description of Symptoms (Recalled from Triage Doc. by RN): PATIENT C/O BILATERAL EAR PAIN (WORSE ON RIGHT SIDE) X 1.5 WEEKS, LIGHT-HEADED, AND FEVER HEENT Symptoms (Recalled from RN notes): Yes Resp Symptoms (Recalled from RN notes): No Skin Symptoms (Recalled from RN notes): No MS Symptoms (Recalled from RN notes): No Functional Status (Recalled from RN notes): WNL History of Present Illness Provider Complaint: Patient states that she has been having pain in both ears but worse in her right for about a week and half States that she was treated for ear infection about a month ago and dx with ear infection but now it is hurting again Related Data Home Medications Medication Instructions Recorded Confirmed cariprazine 1.5 mg capsule 1.5 mg PO DAILY Depression 11/08/21 10/02/22 hydroxyzine pamoate 25 mg capsule 25 mg PO DAILY Anxiety 06/13/22 10/02/22 levonorgestrel-ethinyl estradiol 1 tab PO DAILY control 10/02/22 10/02/22 0.1 mg-20 mcg tablet (Aviane) Previous Rx's Medication Instructions Recorded cefdinir 300 mg capsule 300 mg PO BID #20 caps 10/02/22 Allergies Allergy/AdvReac Type Severity Reaction Status Date / Time amoxicillin [AMOXICILLIN] Allergy Mild Verified 07/21/22 14:50 Penicillins Allergy Verified 07/21/22 14:50 Worker's Comp Is this a Worker's Comp case?: No [facility] Disclaimer: The information contained in this section may have been updated after the patient was seen, as this information can be updated by other users. 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 Acne Anxiety Depression History of anemia History of gastroesophageal reflux (GERD) Insomnia Migraine PCOS (polycystic ovarian syndrome) Pelvic pain Right ovarian cyst Tendinitis of right forearm Thyroid disease Surgical History History of tympanostomy tube placement Family History Other Diabetes Social History Smoking Status: Never smoker second hand exposure: No alcohol intake: never substance use type: denies use current occupational status: other Travel in the last 8 weeks: None household members: family housing: house number of children: 0 current occupational exposures/hazards: No ROS Obtained: Yes All systems reviewed & no additional complaints except as documented and Yes Systems reviewed as appropriate & no additional complaints except as documented Constitutional Constitutional: Reports system reviewed and no additional complaints, except as documented, Reports as per HPI and Reports fever(s) ENT Ears, Nose, Mouth, and Throat: Reports system reviewed and no a
[2022-10-02 17:19] VITALS: BP 129/80; PULSE 86; RESP 21; TEMP 37.1; O2SAT 99
== END 2022-10-02 17:30 | disposition home or self-care (01) ==
PROVIDERS: Emergency Provider Nurse Practitioner; PCP Nurse Practitioner Family
DX: H66.91 Otitis media, unspecified, right ear (principal); F41.9 Anxiety disorder, unspecified; F32.9 Major depressive disorder, single episode, unspecified
CPT/HCPCS: 99212; 99214; G0463

== ENCOUNTER 2022-10-04 11:13 | Emergency (ER) | payer OTHER, SELFPAY ==
[2022-10-04 11:13] VITALS: BP 128/88; PULSE 109; RESP 17; TEMP 36.9; O2SAT 99; BMI 33.9
--- NOTE | 2022-10-04 11:13 | ECG_ITS ---
APPROVED REPORT Exam: Resting ECG HR:110 bpm ECG Measurements Heart Rate 110 AXES RI 134 P 32 QRSd 87 QRS 52 QT 327 T 33 QTc 392 Conclusion SINUS TACHYCARDIA ABNORMAL RHYTHM ECG UNCONFIRMED REPORT Electronically signed by : Dinesh Krishnan MD 10/05/2022 09:27:40
[2022-10-04 11:16] VITALS: PULSE 109
[2022-10-04 11:30] VITALS: BP 132/85; PULSE 89; RESP 16; O2SAT 96
--- NOTE | 2022-10-04 11:31 | HMH.EDCP ---
Discharge Plan Disposition Patient Disposition: Home, Self-Care Condition: Good Chief Complaint: Chest Pain Prescriptions Prescriptions: No Action cariprazine 1.5 MG capsule 1.5 mg PO DAILY levonorgestrel-ethinyl estrad [Aviane] 0.1-20 mg-mcg tablet 1 tab PO DAILY cefdinir 300 mg capsule 300 mg PO BID Qty: 20 0RF hydroxyzine pamoate 25 mg capsule 25 mg PO DAILY Rx Instructions: TAKE 1 CAPSULE BY MOUTH THREE TIMES DAILY NEEDED FOR ITCHING Referrals Follow up/Referrals: Loi Simpson APRN [Primary Care Provider] - See instructions Activity Restrictions/Add. Instructions Additional Instructions/Restrictions: Your work-up today in the emergency department does not reveal any life-threatening or dangerous causes for your symptoms. I feel that you have costochondritis. This is an inflammation of the cartilage between your ribs and breastbone. You can take ddno-uwd-mihlbkh ibuprofen for the next few days and this should improve. Return to the emergency department immediately if you feel worse in any way. Follow-up with your primary care doctor in about 3 to 5 days if you do not improve. Clinical Impressions Clinical Impression: Acute costochondritis Instructions Patient Instructions: DI for Atypical Chest Pain Discharge ED Provider: David Garcia Chest Pain HPI General Chief Complaint: Chest Pain Stated Complaint: Chest Pain Time Seen by Provider: 10/04/22 11:31 Mode of Arrival: Ambulatory Source of Information: Patient Limitations: No Limitations Description of Symptoms (Recalled from ER Triage Doc. by RN): 22 F presents with chest pain, headache, and vomiting that occurred this AM. She is well known to this ED for chest pain with negative cardiac work-ups in the past. NAD on arrival. She was concerned because she had not had a headache or vomiting with previous chest pain episodes. History of Present Illness HPI narrative: The patient presents to the emergency department complaining of an episode of chest pain approximately 5 AM today. This lasted about 5 minutes. The patient felt nauseous and vomited once. She still has some mild nausea but denies severe chest pain. She has had similar symptoms in the past. She has no risk factors for coronary artery disease. She denies a history of pulmonary emboli or DVTs. She also denies a family history of DVT, PE or early coronary artery disease. Related Data Home Medications Medication Instructions Recorded Confirmed cariprazine 1.5 mg capsule 1.5 mg PO DAILY Depression 11/08/21 10/02/22 hydroxyzine pamoate 25 mg capsule 25 mg PO DAILY Anxiety 06/13/22 10/02/22 levonorgestrel-ethinyl estradiol 1 tab PO DAILY control 10/02/22 10/02/22 0.1 mg-20 mcg tablet (Aviane) Previous Rx's Medication Instructions Recorded cefdinir 300 mg capsule 300 mg PO BID #20 caps 10/02/22 Allergies Allergy/AdvReac Type Severity Reaction Status Date / Time amoxicillin [AMOXICILLIN] Allergy Mild Verified 07/21/22 14:50 Penicillins Allergy Verified 07/21/22 14:50 [facility] Disclaimer: The information contained in this section may have been updated after the patient was seen, as this information can be updated by other users. 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 Acne Anxiety Depression History of anemia History of gastroesophageal reflux (GERD) Insomnia Migraine PCOS (polycystic ovarian syndrome) Pelvic pain Right ovarian cyst Tendinitis of right forearm Thyroid disease Surgical History History of tympanostomy tube placement Family History Other Diabetes Social History Smoking Status: Never smoker second hand exposure: No alcohol intake: never substance use type: denies use current occupational status: other Travel in
--- NOTE | 2022-10-04 11:35 | XR_ITS ---
FINAL REPORT CLINICAL HISTORY: Precordial chest pain COMPARISON: 02/27/2022 FINDINGS: No acute pulmonary opacity is present. There is no evidence of effusion or pneumothorax. Mediastinum is unremarkable. Heart size is normal. IMPRESSION: No acute abnormality. Reviewed, Interpreted and Dictated by Isaías Newman MD Transcribed by Krysten Thomas Authenticated and [facility]
[2022-10-04 12:00] VITALS: BP 110/78; PULSE 89; RESP 24; O2SAT 96
[2022-10-04 12:02] LABS: Basophils # 0.1 K/mm3 (0-0.2); Basophils % 0.8 % (0.1-2.0); Eosinophils # 0.2 K/mm3 (0.0-0.4); Eosinophils % 3.2 % (0.1-12.0); Hematocrit 43.3 % (37.0-47.0); Hemoglobin 13.5 g/dL (12.2-16.2); Lymphocytes # 2.6 K/mm3 (0.7-4.5); Mean Corpuscular HGB Conc 31.2 g/dL (31.8-35.4); Mean Corpuscular Hemoglobin 29.1 pg (27.0-31.2); Mean Corpuscular Volume 93.3 fl (81-99); Mean Platelet Volume 8.1 fl (7.4-10.4); Monocytes # 0.5 K/mm3 (0.1-1.0); Monocytes % 7.2 % (1.7-9.3); Neutrophils # 3.8 K/mm3 (1.8-7.8); Neutrophils % 52.8 % (37.0-80.0); Platelet Count 374 K/mm3 (142-424); Red Blood Count 4.64 M/mm3 (4.20-5.40); Red Cell Distribution Width 13.8 % (11.5-17.5); White Blood Count 7.3 K/mm3 (4.5-13.0)
[2022-10-04 12:12] LABS: Chloride 104 mmol/L (98-107); Potassium 4.2 mmoL/L (3.5-5.1); Sodium 139 mmol/L (136-145)
[2022-10-04 12:15] LABS: Anion Gap 13.2 mEq/L (5-15); Blood Urea Nitrogen 18 mg/dl (7-17); Calcium 8.8 mg/dl (8.4-10.2); Carbon Dioxide 26 mmol/L (22.0-30.0); Creatinine Clearance Estimated 193 mL/min (50-200); Estimated Glomerular Filt Rate 107 ml/min (>60); GFR (African American) 129 ML/MIN (>60); Glucose 95 mg/dl (74-100)
[2022-10-04 12:28] LABS: Troponin I < 0.01 ng/ml (0.00-0.034)
[2022-10-04 12:46] VITALS: BP 112/73; PULSE 64; RESP 16; TEMP 36.9; O2SAT 99
== END 2022-10-04 12:53 | disposition home or self-care (01) ==
PROVIDERS: Emergency Provider Emergency Medicine; PCP Nurse Practitioner Family
DX: R07.9 Chest pain, unspecified (principal); M94.0 Chondrocostal junction syndrome [Tietze]; R51.9 Headache, unspecified; R11.2 Nausea with vomiting, unspecified; F41.9 Anxiety disorder, unspecified; F32.A Depression, unspecified; E28.2 Polycystic ovarian syndrome
CPT/HCPCS: 71045; 80048; 84484; 85025; 93005; 96361; 96374; 96375; 99285; J2405

== ENCOUNTER 2022-11-02 12:47 | Emergency (ER) | payer OTHER, SELFPAY ==
--- NOTE | 2022-11-02 12:56 | XR_ITS ---
FINAL REPORT CLINICAL HISTORY: dyspnea COMPARISON: 10/04/2022 FINDINGS: A single portable view of the chest was obtained. The heart size and pulmonary vascularity are within normal limits. The mediastinum is within normal limits. No acute pulmonary abnormality is identified. The bony thorax is intact. IMPRESSION: No active cardiopulmonary disease. Reviewed, Interpreted and Dictated by Abdi Guerin III, MD Transcribed by Laquita Merritt Authenticated and [facility]
--- NOTE | 2022-11-02 12:58 | HMH.EDGENADL ---
Discharge Plan Disposition Patient Disposition: Home, Self-Care Prescriptions Prescriptions: No Action cariprazine 1.5 MG capsule 1.5 mg PO DAILY levonorgestrel-ethinyl estrad [Aviane] 0.1-20 mg-mcg tablet 1 tab PO DAILY hydroxyzine pamoate 25 mg capsule 25 mg PO DAILY Rx Instructions: TAKE 1 CAPSULE BY MOUTH THREE TIMES DAILY NEEDED FOR ITCHING Activity Restrictions/Add. Instructions Additional Instructions/Restrictions: Please follow-up with your primary care doctor if you wish to discuss your chronic intermittent symptoms regarding her chest discomfort. Return with any worsening shortness of breath or chest pain. Clinical Impressions Clinical Impression: Atypical chest pain Discharge ED Provider: Loi Celestin General Adult HPI General Chief complaint: Chest Pain Stated complaint: chest tight, blurry vision Time Seen by Provider: 11/02/22 12:52 History of Present Illness HPI narrative: Patient is a 22-year-old female presenting with sudden chest discomfort that started just prior to arrival. She does states she had intermittent symptoms like this over the last several months and came to the emergency department once before was told that it was just inflammation. She states that just prior to arrival she developed sudden what she describes as tightness in her chest. She denies any shortness of breath denies any lower extremity swelling no history of DVT or PE. She is on oral control pills. No family history of any sudden cardiac or any heart attacks in a very young age. She denies any other medical problems. The reason that she came in the emergency part today as she states that her symptoms are worse than they have been in the past. Related Data Home Medications Medication Instructions Recorded Confirmed cariprazine 1.5 mg capsule 1.5 mg PO DAILY Depression 11/08/21 11/02/22 hydroxyzine pamoate 25 mg capsule 25 mg PO DAILY Anxiety 06/13/22 11/02/22 levonorgestrel-ethinyl estradiol 1 tab PO DAILY control 10/02/22 11/02/22 0.1 mg-20 mcg tablet (Aviane) Allergies Allergy/AdvReac Type Severity Reaction Status Date / Time amoxicillin [AMOXICILLIN] Allergy Mild Verified 11/02/22 12:58 Penicillins Allergy Verified 11/02/22 12:58 [facility] Disclaimer: The information contained in this section may have been updated after the patient was seen, as this information can be updated by other users. 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 Acne Anxiety Depression History of anemia History of gastroesophageal reflux (GERD) Insomnia Migraine PCOS (polycystic ovarian syndrome) Pelvic pain Right ovarian cyst Tendinitis of right forearm Thyroid disease Surgical History History of tympanostomy tube placement Family History Other Diabetes Social History (Updated 11/02/22 @ 12:56 by Siobhan Lamb RN) Smoking Status: Never smoker second hand exposure: No alcohol intake: never substance use type: denies use current occupational status: other Travel in the last 8 weeks: None household members: family housing: house number of children: 0 current occupational exposures/hazards: No ROS Obtained: Yes All systems reviewed & no additional complaints except as documented Physical Exam General General appearance: alert Respiratory Respiratory exam: Present normal lung sounds bilaterally Cardiovascular Cardiovascular exam: Present regular rate; Absent tachycardia Neurological Exam Neurological exam: Present alert and oriented X3 Medical Decision Making Kulwant Inquiry Pt receiving controlled substance: No Vital Signs: 11/02/22 13:00 11/02/22 13:00 Temperature 98.0 F Temperature Source Oral Pulse Rate 104 H Pulse Rate [Right Brachial] 100 H Respiratory Rate 15 Blood Pressure 124/88
[2022-11-02 13:00] VITALS: BP 124/88; BP 134/100; PULSE 100; PULSE 104; RESP 15; TEMP 36.7; O2SAT 98; O2SAT 99; BMI 33.9
--- NOTE | 2022-11-02 13:26 | ECG_ITS ---
APPROVED REPORT Exam: Resting ECG HR:87 bpm ECG Measurements Heart Rate 87 AXES HI 136 P 17 QRSd 84 QRS 20 QT 362 T 19 QTc 406 Conclusion SINUS RHYTHM NONSPECIFIC T-WAVE ABNORMALITY BORDERLINE ECG UNCONFIRMED REPORT Electronically signed by : Dinesh Krishnan MD 11/02/2022 21:12:06
[2022-11-02 13:38] LABS: Basophils # 0.1 K/mm3 (0-0.2); Basophils % 0.6 % (0.1-2.0); Eosinophils # 0.4 K/mm3 (0.0-0.4); Eosinophils % 4.1 % (0.1-12.0); Hematocrit 39.8 % (37.0-47.0); Lymphocytes # 3.2 K/mm3 (0.7-4.5); Lymphocytes % 37.7 % (10-50); Mean Corpuscular HGB Conc 32.6 g/dL (31.8-35.4); Mean Corpuscular Hemoglobin 29.3 pg (27.0-31.2); Mean Corpuscular Volume 89.9 fl (81-99); Mean Platelet Volume 8.8 fl (7.4-10.4); Monocytes # 0.3 K/mm3 (0.1-1.0); Neutrophils # 4.6 K/mm3 (1.8-7.8); Neutrophils % 53.6 % (37.0-80.0); Platelet Count 384 K/mm3 (142-424); Red Blood Count 4.43 M/mm3 (4.20-5.40); Red Cell Distribution Width 13.2 % (11.5-17.5); White Blood Count 8.6 K/mm3 (4.5-13.0)
[2022-11-02 13:43] LABS: Anion Gap 11.6 mEq/L (5-15); Blood Urea Nitrogen 15 mg/dl (7-17); Calcium 8.9 mg/dl (8.4-10.2); Carbon Dioxide 28 mmol/L (22.0-30.0); Chloride 104 mmol/L (98-107); Creatinine Clearance Estimated 193 mL/min (50-200); Estimated Glomerular Filt Rate 107 ml/min (>60); GFR (African American) 129 ML/MIN (>60); Glucose 112 mg/dl (74-100); Potassium 3.6 mmoL/L (3.5-5.1); Sodium 140 mmol/L (136-145)
[2022-11-02 13:49] LABS: D-Dimer 0.86 ug/mL (0.0-0.5)
[2022-11-02 13:56] LABS: Troponin I < 0.01 ng/ml (0.00-0.034)
[2022-11-02 14:01] VITALS: BP 126/76; PULSE 73; RESP 16; TEMP 36.7; O2SAT 99
== END 2022-11-02 14:16 | disposition home or self-care (01) ==
PROVIDERS: Emergency Provider Student in an Organized Health Care Education/Training Program; PCP Nurse Practitioner Family
DX: R07.9 Chest pain, unspecified (principal); H53.9 Unspecified visual disturbance; F41.9 Anxiety disorder, unspecified; F32.A Depression, unspecified; E07.9 Disorder of thyroid, unspecified
CPT/HCPCS: 71045; 80048; 84484; 85025; 85378; 93005; 96361; 96374; 99285

== ENCOUNTER 2022-11-20 09:10 | Emergency (ER) | payer OTHER, SELFPAY ==
[2022-11-20 09:11] VITALS: BP 136/98; PULSE 88; RESP 18; TEMP 36.9; O2SAT 96; BMI 32.3
[2022-11-20 09:31] LABS: UTC Strep Screen (Rapid) Negative (Negative)
--- NOTE | 2022-11-20 09:39 | EXP.UTC ---
Discharge Plan Disposition Patient Disposition: Home, Self-Care Condition: Good Prescriptions Prescriptions: New methylprednisolone 4 mg Tablets,Dose Pack 4 mg PO DIRECTED Qty: 21 0RF vzahuscdheendub-ssojbytos-YT [Bromfed DM] 2-30-10 mg/5 mL Syrup 5 ml PO Q6H PRN (Reason: Cough) Qty: 240 0RF ciprofloxacin-dexamethasone 0.3-0.1 % Drops,Suspension 2 drp Ear-Both BID 7 Days Qty: 1 0RF No Action cariprazine 1.5 MG capsule 1.5 mg PO DAILY levonorgestrel-ethinyl estrad [Aviane] 0.1-20 mg-mcg tablet 1 tab PO DAILY hydroxyzine pamoate 25 mg capsule 25 mg PO DAILY Rx Instructions: TAKE 1 CAPSULE BY MOUTH THREE TIMES DAILY NEEDED FOR ITCHING Referrals Follow up/Referrals: Loi Simpson APRN [Primary Care Provider] - See instructions Activity Restrictions/Add. Instructions Additional Instructions/Restrictions: Drink plenty of fluids. Take tylenol or ibuprofen for pain or fever. Take the medications as directed. Follow up with your regular doctor. GO TO THE ER FOR ANY WORSENING SYMPTOMS Clinical Impressions Clinical Impression: Otitis media, Sinusitis Stand Alone Forms Stand Alone Forms: Work/School Release Instructions Patient Instructions: Sinusitis, DI for Sinusitis, How to Use Ear Drops Discharge ED Provider: Syed Orourke [facility] General Stated complaint: Eyes; Ears; Nose; Throat Mode of Arrival: Ambulatory Source of Information: Patient Limitations: No Limitations Time Seen by Provider: 11/20/22 09:39 HEENT Symptoms (Recalled from RN notes): Yes Resp Symptoms (Recalled from RN notes): No Skin Symptoms (Recalled from RN notes): No MS Symptoms (Recalled from RN notes): No Functional Status (Recalled from RN notes): wnl History of Present Illness Provider Complaint: Patient reports runny nose, sneezing, scratchy throat, right eye pain and bilateral ear pain since Sunday night. Related Data Home Medications Medication Instructions Recorded Confirmed cariprazine 1.5 mg capsule 1.5 mg PO DAILY Depression 11/08/21 11/02/22 hydroxyzine pamoate 25 mg capsule 25 mg PO DAILY Anxiety 06/13/22 11/02/22 levonorgestrel-ethinyl estradiol 1 tab PO DAILY control 10/02/22 11/02/22 0.1 mg-20 mcg tablet (Aviane) Previous Rx's Medication Instructions Recorded evvvejbdlehlbtn-fzfikthxojazszg-LJ 5 ml PO Q6H PRN Cough #240 mL 11/20/22 2 mg-30 mg-10 mg/5 mL oral syrup (Bromfed DM) ciprofloxacin 0.3 %-dexamethasone 2 drp Ear-Both BID 7 days #1 ea 11/20/22 0.1 % ear drops,suspension methylprednisolone 4 mg tablets in 4 mg PO DIRECTED #21 tabs 11/20/22 a dose pack Allergies Allergy/AdvReac Type Severity Reaction Status Date / Time amoxicillin [AMOXICILLIN] Allergy Mild Verified 11/02/22 12:58 Penicillins Allergy Verified 11/02/22 12:58 Worker's Comp Is this a Worker's Comp case?: No [facility] Disclaimer: The information contained in this section may have been updated after the patient was seen, as this information can be updated by other users. 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 Acne Anxiety Depression History of anemia History of gastroesophageal reflux (GERD) Insomnia Migraine PCOS (polycystic ovarian syndrome) Pelvic pain Right ovarian cyst Tendinitis of right forearm Thyroid disease Surgical History History of tympanostomy tube placement Family History Other Diabetes Social History (Updated 11/02/22 @ 12:56 by Siobhan Lamb RN) Smoking Status: Never smoker second hand exposure: No alcohol intake: never substance use type: denies use current occupational status: other Travel in the last 8 weeks: None household members: family housing: house number of children: 0 current occupational exposures/hazards: No ROS Obtained: Yes All systems rev
[2022-11-20 09:55] VITALS: BP 136/98; PULSE 88; RESP 18; TEMP 36.9; O2SAT 96
== END 2022-11-20 09:58 | disposition home or self-care (01) ==
PROVIDERS: Emergency Provider Nurse Practitioner Family; PCP Nurse Practitioner Family
DX: H66.93 Otitis media, unspecified, bilateral (principal); J01.90 Acute sinusitis, unspecified; E03.9 Hypothyroidism, unspecified; G47.00 Insomnia, unspecified; F41.9 Anxiety disorder, unspecified; F32.A Depression, unspecified
CPT/HCPCS: 87880; 96372; 99212; 99214; G0463

== ENCOUNTER 2022-12-15 14:13 | Emergency (ER) | payer OTHER, SELFPAY ==
[2022-12-15] VITALS (8 sets, daily range): BP systolic 103–139; BP diastolic 66–93; PULSE 81–100; RESP 18–20; TEMP 36.6–36.7; O2SAT 97–99; BMI 33.9
--- NOTE | 2022-12-15 14:27 | CT_ITS ---
FINAL REPORT CLINICAL HISTORY: diffuse abd pain and tenderness COMPARISON: 09/29/2021 FINDINGS: CT OF THE ABDOMEN AND PELVIS WITH CONTRAST Axial CT images of the abdomen and pelvis were obtained after the administration of oral and iv contrast. Coronal and sagittal reformatted images were also obtained and reviewed.This study was performed with techniques to keep radiation doses as low as reasonably achievable (ALARA). Individualized dose reduction techniques using automated exposure control or adjustment of mA and/or kV according to the patient's size were employed. Abdomen: The lung bases are clear. The heart is normal in size. The liver has an unremarkable appearance, without evidence of mass or biliary ductal dilatation. The spleen is unremarkable. No adrenal mass is present. The pancreas has an unremarkable appearance. The kidneys are normal, without evidence of mass or hydronephrosis. The aorta is normal in caliber. There is no free fluid or adenopathy. No mass or abnormal fluid collection is seen. Pelvis: The appendix is normal in appearance. The urinary bladder wall is mildly thickened, likely inflammatory. There are presumed cysts in the right ovary measuring up to 23 mm in size. There is no evidence of mass or adenopathy. There is no evidence of bowel obstruction. IMPRESSION: Unremarkable abdomen CT. Presumed cysts in the right ovary measuring up to 23 mm. Mild bladder wall thickening, likely inflammatory. Reviewed, Interpreted and Dictated by Abdi Guerin III, MD Transcribed by Sheryl Perez Authenticated and [facility]
--- NOTE | 2022-12-15 14:28 | HMH.EDGENADL ---
Discharge Plan Disposition Patient Disposition: Home, Self-Care Condition: Good Prescriptions Prescriptions: New fosfomycin tromethamine 3 gram packet 3 g PO Q3D Qty: 1 0RF ondansetron 4 mg tablet,disintegrating 4 mg PO Q8H PRN (Reason: nausea and vomiting) 4 Days Qty: 12 0RF No Action cariprazine 1.5 MG capsule 1.5 mg PO DAILY levonorgestrel-ethinyl estrad [Aviane] 0.1-20 mg-mcg tablet 1 tab PO DAILY methylprednisolone 4 mg Tablets,Dose Pack 4 mg PO DIRECTED Qty: 21 0RF mryihvxafcrfhxu-vsibmevgg-ED [Bromfed DM] 2-30-10 mg/5 mL Syrup 5 ml PO Q6H PRN (Reason: Cough) Qty: 240 0RF ciprofloxacin-dexamethasone 0.3-0.1 % Drops,Suspension 2 drp Ear-Both BID 7 Days Qty: 1 0RF hydroxyzine pamoate 25 mg capsule 25 mg PO DAILY Rx Instructions: TAKE 1 CAPSULE BY MOUTH THREE TIMES DAILY NEEDED FOR ITCHING Referrals Follow up/Referrals: Carli Georges PA [Primary Care Provider] - See instructions Activity Restrictions/Add. Instructions Additional Instructions/Restrictions: At this time it was felt you are safe to be discharged home. If new or worsening symptoms please do not hesitate to return the emergency department. Please follow-up with your family doctor within 1 week should symptoms persist. Clinical Impressions Clinical Impression: Nonspecific abdominal pain Instructions Patient Instructions: DI for Acute Abdominal Pain Discharge ED Provider: Pako Duron General Adult HPI <Blaise Celestin MD - Last Filed: 12/15/22 14:31> General Chief complaint: Abdominal Pain Stated complaint: abd pain Time Seen by Provider: 12/15/22 14:23 Mode of Arrival: Ambulatory Source of Information: Patient Limitations: No Limitations Description of Symptoms (Recalled from ER Triage Doc. by RN): pt complains of upper abd pain off and on the last week and a half. takes tylenol with no relief states eating and drinking make it worse. only other complaint is nausea but no vomiting or fever History of Present Illness HPI narrative: 22-year-old female here with diffuse abdominal pain and tenderness. States this began vaguely a week and a half ago however last 24 hours she noticed that she is significantly tender. She states she is tender throughout her abdomen but it is primarily in the mid periumbilical and epigastric region. States she had a last LMP 1 month ago has not been irregular is not sexually active. Denies any urinary dysuria or frequency but she does have a urgency and has had low volume urine. Denies any bowel complaints including constipation or diarrhea. Denies any nausea and vomiting. No fevers or chills or any other symptoms. Denies any known medical problems. Related Data Home Medications Medication Instructions Recorded Confirmed cariprazine 1.5 mg capsule 1.5 mg PO DAILY Depression 11/08/21 11/02/22 hydroxyzine pamoate 25 mg capsule 25 mg PO DAILY Anxiety 06/13/22 11/02/22 levonorgestrel-ethinyl estradiol 1 tab PO DAILY control 10/02/22 11/02/22 0.1 mg-20 mcg tablet (Aviane) Previous Rx's Medication Instructions Recorded bgtvqkiwipwrakg-rghvoaulukzclxa-FN 5 ml PO Q6H PRN Cough #240 mL 11/20/22 2 mg-30 mg-10 mg/5 mL oral syrup (Bromfed DM) ciprofloxacin 0.3 %-dexamethasone 2 drp Ear-Both BID 7 days #1 ea 11/20/22 0.1 % ear drops,suspension methylprednisolone 4 mg tablets in 4 mg PO DIRECTED #21 tabs 11/20/22 a dose pack fosfomycin tromethamine 3 gram 3 g PO Q3D 1 dose #1 ea 12/15/22 oral packet ondansetron 4 mg disintegrating 4 mg PO Q8H PRN nausea and 12/15/22 tablet vomiting 4 days #12 tabs Allergies Allergy/AdvReac Type Severity Reaction Status Date / Time amoxicillin [AMOXICILLIN] Allergy Mild Verified 11/02/22 12:58 Penicillins Allergy Verified 11/02/22 12:58 [facility] <Blaise Celestin MD - Last Filed: 12/15/22 14:31> [facility] Disclaimer: The information contained in this section may have been updated aft
[2022-12-15 15:03] LABS: Microscopic, Urine URINE MICROSCOPIC (MICROSCOPIC)
[2022-12-15 15:04] LABS: Chloride 106 mmol/L (98-107); Potassium 3.8 mmoL/L (3.5-5.1); Sodium 139 mmol/L (136-145)
[2022-12-15 15:07] LABS: Alanine Aminotransferase 68 U/L (12-78); Albumin Level 4.2 g/dl (3.5-5.0); Albumin/Globulin Ratio 1.3 (1.1-1.8); Alkaline Phosphatase 157 U/L (38-126); Anion Gap 14.8 mEq/L (5-15); Aspartate Amino Transferase 58 U/L (14-36); Bilirubin,Total 0.4 mg/dl (0.2-1.3); Calcium 9.1 mg/dl (8.4-10.2); Carbon Dioxide 22 mmol/L (22.0-30.0); Globulin 3.3 g/dL (1.3-3.2); Glucose 146 mg/dl (74-100); HCG Qualitative, Serum Negative (Negative); Lipase 77 U/L (23-300); Total Protein,Serum 7.5 g/dl (6.3-8.2)
[2022-12-15 15:11] LABS: Appearance,Urine CLEAR (Clear); Bilirubin,Urine Negative (Negative); Blood, Urine Negative (Negative); Color,Urine YELLOW (Yellow); Glucose,Urine (UA) Negative (Negative); Ketones,Urine Negative (Negative); Leukocyte Esterase,Urine Negative (Negative); Nitrate,Urine Negative (Negative); PH,Urine 6.5 (5.0-8.5); Protein,Urine Negative (Negative)
[2022-12-15 15:53] LABS: Bacteria,Urine Trace /lpf; Yeast,Urine 1+ /lpf
[2022-12-15 16:07] LABS: Blood Urea Nitrogen 15 mg/dl (7-17); Creatinine Clearance Estimated 169 mL/min (50-200); Estimated Glomerular Filt Rate 91 ml/min (>60); GFR (African American) 111 ML/MIN (>60)
--- NOTE | 2022-12-15 17:07 | PC.NURSE ---
MD ordered for pt to attempt po, pt given water, updated pt about poc
--- NOTE | 2022-12-15 17:08 | PC.NURSE ---
lab coming to draw CBC
[2022-12-15 17:31] LABS: Basophils # 0.1 K/mm3 (0-0.2); Basophils % 0.7 % (0.1-2.0); Eosinophils # 0.4 K/mm3 (0.0-0.4); Eosinophils % 4.3 % (0.1-12.0); Hematocrit 41.7 % (37.0-47.0); Hemoglobin 13.4 g/dL (12.2-16.2); Lymphocytes # 2.5 K/mm3 (0.7-4.5); Lymphocytes % 25.1 % (10-50); Mean Corpuscular HGB Conc 32.2 g/dL (31.8-35.4); Mean Corpuscular Hemoglobin 30.4 pg (27.0-31.2); Mean Corpuscular Volume 94.4 fl (81-99); Mean Platelet Volume 8.2 fl (7.4-10.4); Monocytes # 0.5 K/mm3 (0.1-1.0); Neutrophils # 6.4 K/mm3 (1.8-7.8); Platelet Count 370 K/mm3 (142-424); Red Blood Count 4.42 M/mm3 (4.20-5.40); Red Cell Distribution Width 13.4 % (11.5-17.5); White Blood Count 9.9 K/mm3 (4.5-13.0)
--- NOTE | 2022-12-15 17:43 | PC.NURSE ---
Pt states that she is able to keep her water down but she does continue to be nauseated. aware
== END 2022-12-15 18:15 | disposition home or self-care (01) ==
PROVIDERS: Student in an Organized Health Care Education/Training Program; Emergency Provider Emergency Medicine; PCP Physician Assistant
DX: R10.13 Epigastric pain (principal); R10.33 Periumbilical pain; F41.9 Anxiety disorder, unspecified; F32.A Depression, unspecified; E28.2 Polycystic ovarian syndrome; E07.9 Disorder of thyroid, unspecified; G43.909 Migraine, unspecified, not intractable, without status migrainosus
CPT/HCPCS: 74177; 80053; 81001; 83690; 84703; 85025; 96361; 96374; 96375; 99285; J2405; Q9967

== ENCOUNTER 2022-12-15 22:57 | Emergency (ER) | payer OTHER, SELFPAY ==
[2022-12-15 22:58] VITALS: BP 147/102; PULSE 109; RESP 17; TEMP 36.8; O2SAT 99; BMI 26.6
[2022-12-15 23:34] VITALS: BP 111/80; PULSE 89; O2SAT 96
--- NOTE | 2022-12-15 23:37 | HMH.EDGENADL ---
Discharge Plan Disposition Chief Complaint: Abdominal Pain Prescriptions Prescriptions: New famotidine [Pepcid] 20 mg tablet 20 mg PO BID 42 Days Qty: 84 0RF No Action cariprazine 1.5 MG capsule 1.5 mg PO DAILY levonorgestrel-ethinyl estrad [Aviane] 0.1-20 mg-mcg tablet 1 tab PO DAILY methylprednisolone 4 mg Tablets,Dose Pack 4 mg PO DIRECTED Qty: 21 0RF csikorsjuaggmuc-iyaykjupq-XX [Bromfed DM] 2-30-10 mg/5 mL Syrup 5 ml PO Q6H PRN (Reason: Cough) Qty: 240 0RF ciprofloxacin-dexamethasone 0.3-0.1 % Drops,Suspension 2 drp Ear-Both BID 7 Days Qty: 1 0RF hydroxyzine pamoate 25 mg capsule 25 mg PO DAILY Rx Instructions: TAKE 1 CAPSULE BY MOUTH THREE TIMES DAILY NEEDED FOR ITCHING fosfomycin tromethamine 3 gram packet 3 g PO Q3D Qty: 1 0RF ondansetron 4 mg tablet,disintegrating 4 mg PO Q8H PRN (Reason: nausea and vomiting) 4 Days Qty: 12 0RF Referrals Follow up/Referrals: Carli Georges PA [Primary Care Provider] - See instructions Activity Restrictions/Add. Instructions Additional Instructions/Restrictions: Call your family doctor to establish care for this visit to the emergency department and schedule follow-up within 48 hours to ensure improvement. If you have any worsening of your condition or any other concerning signs or symptoms, return to the emergency department or your primary care doctor for further evaluation. Take Tylenol 1000 mg every 6 hours (4 times daily) and ibuprofen 400 mg every 6 hours (4 times daily) as needed with food and water to prevent GI upset and kidney damage. Clinical Impressions Clinical Impression: Abdominal pain Qualifiers: Abdominal location: right upper quadrant Qualified Code(s): R10.11 - Right upper quadrant pain Instructions Patient Instructions: DI for Acute Abdominal Pain Discharge ED Provider: Glenn Ro General Adult HPI General Chief complaint: Abdominal Pain Stated complaint: abd pain Time Seen by Provider: 12/15/22 23:01 Mode of Arrival: Ambulatory Source of Information: Patient Limitations: No Limitations Description of Symptoms (Recalled from ER Triage Doc. by RN): 22 F presents with continued and worsening RLQ abdominal pain. Patient reports being seen here earlier this date by Dr. Duron and discharged home with instructions to f/u with PCP or to come back to the ED if pain is worsening. Patient reports the pain is starting again in her stomach and she's nauseated. Patient denies fever, chills, vomiting, or diarrhea. History of Present Illness HPI narrative: This is a 22-year-old female with history of known right ovarian cyst presenting with recurrent abdominal pain. 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 No history of trauma, exertion, obvious inciting incident. It was dull, epigastric, did not radiate at first. Since that time, she has had different abdominal pains. She was seen in the emergency department earlier today, 12/15 for epigastric/left upper quadrant pain and discharged home after hematologic, urine, and imaging work-up was unremarkable. She was instructed to return if got worse. Patient states that she laid down to go to bed tonight, 12/15, and had a an acute, right upper quadrant, 9 out of 10 stabbing pain that did not radiate, so came to the ER for further evaluation. Patient states that eating makes it worse immediately after eating. Meals cause her to feel nauseated, epigastric and right upper quadrant pain. No associated vomiting or diarrhea. Patient denies fevers or chills, chest pain or shortness of breath, urinary symptoms, neurologic deficits, weakness, history of kidney stones, DVT or PE risk factors. Related Data Home Medications Medication Instructions Recorded Confirmed cariprazine 1.5 mg capsule 1.5 mg PO DAILY Depression 11/08/21 11/02/22 hydroxyzine pamoate 25 mg capsule 25 mg PO DAILY Anxi
[2022-12-15 23:44] LABS: Basophils # 0.1 K/mm3 (0-0.2); Basophils % 0.8 % (0.1-2.0); Eosinophils # 0.5 K/mm3 (0.0-0.4); Eosinophils % 5.6 % (0.1-12.0); Hematocrit 41.7 % (37.0-47.0); Hemoglobin 13.6 g/dL (12.2-16.2); Lymphocytes # 3.9 K/mm3 (0.7-4.5); Mean Corpuscular HGB Conc 32.7 g/dL (31.8-35.4); Mean Corpuscular Hemoglobin 30.1 pg (27.0-31.2); Mean Corpuscular Volume 92.2 fl (81-99); Mean Platelet Volume 8.2 fl (7.4-10.4); Monocytes # 0.5 K/mm3 (0.1-1.0); Monocytes % 4.8 % (1.7-9.3); Neutrophils # 4.7 K/mm3 (1.8-7.8); Neutrophils % 48.8 % (37.0-80.0); Platelet Count 433 K/mm3 (142-424); Red Blood Count 4.53 M/mm3 (4.20-5.40); Red Cell Distribution Width 13.5 % (11.5-17.5); White Blood Count 9.6 K/mm3 (4.5-13.0)
[2022-12-15 23:54] LABS: Lactic Acid 1.4 mmol/L (0.7-2.1)
[2022-12-15 23:55] LABS: Alanine Aminotransferase 59 U/L (12-78); Albumin Level 4.1 g/dl (3.5-5.0); Albumin/Globulin Ratio 1.3 (1.1-1.8); Alkaline Phosphatase 128 U/L (38-126); Anion Gap 10.4 mEq/L (5-15); Aspartate Amino Transferase 45 U/L (14-36); Blood Urea Nitrogen 11 mg/dl (7-17); Calcium 8.7 mg/dl (8.4-10.2); Carbon Dioxide 26 mmol/L (22.0-30.0); Chloride 108 mmol/L (98-107); Creatinine Clearance Estimated 133 mL/min (50-200); Estimated Glomerular Filt Rate 91 ml/min (>60); GFR (African American) 111 ML/MIN (>60); Globulin 3.2 g/dL (1.3-3.2); Glucose 129 mg/dl (74-100); Lipase 49 U/L (23-300); Potassium 3.4 mmoL/L (3.5-5.1); Sodium 141 mmol/L (136-145); Total Protein,Serum 7.3 g/dl (6.3-8.2)
[2022-12-15 23:59] LABS: D-Dimer 0.43 ug/mL (0.0-0.5)
[2022-12-16] VITALS: BP 108/81; PULSE 87; O2SAT 96
[2022-12-16 00:07] LABS: Bilirubin,Total 0.1 mg/dl (0.2-1.3)
[2022-12-16 00:13] LABS: Troponin I < 0.01 ng/ml (0.00-0.034)
[2022-12-16 00:37] LABS: HCG,Quantitative < 2 mIU/ml (0-5.42)
[2022-12-16 00:59] VITALS: BP 109/76; PULSE 81; RESP 17; TEMP 36.8; O2SAT 96
== END 2022-12-16 01:11 | disposition home or self-care (01) ==
PROVIDERS: Emergency Provider Emergency Medicine; PCP Physician Assistant
DX: R10.11 Right upper quadrant pain (principal); R10.31 Right lower quadrant pain; F41.9 Anxiety disorder, unspecified; F32.A Depression, unspecified; E28.2 Polycystic ovarian syndrome; E07.9 Disorder of thyroid, unspecified; G43.909 Migraine, unspecified, not intractable, without status migrainosus
CPT/HCPCS: 80053; 83605; 83690; 84484; 84702; 85025; 85378; 96374; 96375; 99285

== ENCOUNTER → 2022-12-21 23:34 | Outpatient (CLI) | payer OTHER, SELFPAY | PROVIDERS: PCP Nurse Practitioner Family; Visit Provider Nurse Practitioner Family | DX: R10.9 Unspecified abdominal pain (principal); B96.29 Other Escherichia coli [E. coli] as the cause of diseases classified elsewhere | CPT/HCPCS: 87086; 87088; 87186 ==

== ENCOUNTER 2022-12-26 03:43 | Emergency (ER) | payer OTHER, SELFPAY ==
[2022-12-26 03:45] VITALS: BP 129/105; PULSE 89; RESP 18; TEMP 36.7; O2SAT 98; BMI 33.0
--- NOTE | 2022-12-26 03:59 | HMH.EDGENADL ---
Discharge Plan Disposition Patient Disposition: Home, Self-Care Condition: Good Prescriptions Prescriptions: New erythromycin 5 mg/gram (0.5 %) ointment 1 applic ophthalmic (eye) TID Qty: 3.5 0RF omeprazole 20 mg capsule,delayed release(DR/EC) 20 mg PO DAILY 42 Days Qty: 42 0RF cefdinir 300 mg capsule 300 mg PO BID 5 Days Qty: 10 0RF No Action nitrofurantoin monohyd/m-cryst [Macrobid] 100 mg capsule 100 mg PO Q12H 10 Days Qty: 20 0RF Rx Instructions: must administer with a meal/food polyethylene glycol 3350 [Miralax] 17 gram/dose powder 17 g PO DAILY Qty: 238 0RF famotidine [Pepcid] 20 mg tablet 20 mg PO BID 42 Days Qty: 84 0RF ondansetron 4 mg tablet,disintegrating 4 mg PO Q8H PRN (Reason: nausea and vomiting) 4 Days Qty: 12 0RF Referrals Follow up/Referrals: Provider,Referral, MD [Primary Care Provider] - See instructions Activity Restrictions/Add. Instructions Additional Instructions/Restrictions: Please follow-up with your primary care provider. Please return to the emergency department if you develop any new or worsening symptoms or become concerned for your health. If URI symptoms worsen or do not improve recommend following up with seismology teacher or web content editor regarding symptoms. Please take cefdinir as prescribed to treat possible developing eye infection. Please use erythromycin ointment as prescribed. Please continue to use warm compresses at least 4 times per day for stye. Recommend adding on omeprazole to your famotidine for presumed gastritis. Your abdominal pain needs further work-up with your PCP. Clinical Impressions Clinical Impression: Abdominal pain, epigastric, Hordeolum externum left upper eyelid, Preseptal cellulitis of left eye Discharge ED Provider: Daren Ewing General Adult HPI General Chief complaint: Eye Problems Stated complaint: abd pain,swollen eye Time Seen by Provider: 12/26/22 03:45 History of Present Illness HPI narrative: 22-year-old female previously healthy presents with multiple complaints. Patient reports that she has had left eye upper lid irritation for the last several days, has been using stye ointment at home but does not seem to be improving. Reports some associated blurry vision. Patient also reports epigastric abdominal pain. She reports that it been present for approximately last 3 weeks and has been evaluated multiple times including at ED and primary care for this. She is currently taking famotidine but reports that her pain is not significantly improved. Reports nausea but no vomiting. No history of abdominal surgeries. Reports that she is currently being treated for UTI with nitrofurantoin. Reports intermittent constipation and diarrhea. Related Data Previous Rx's Medication Instructions Recorded ondansetron 4 mg disintegrating 4 mg PO Q8H PRN nausea and 12/15/22 tablet vomiting 4 days #12 tabs famotidine 20 mg tablet (Pepcid) 20 mg PO BID 6 weeks #84 tabs 12/16/22 nitrofurantoin 100 mg PO Q12H 10 days #20 caps 12/21/22 monohydrate/macrocrystals 100 mg capsule (Macrobid) polyethylene glycol 3350 17 17 g PO DAILY #238 grams 12/21/22 gram/dose oral powder (Miralax) cefdinir 300 mg capsule 300 mg PO BID 5 days #10 caps 12/26/22 erythromycin 5 mg/gram (0.5 %) eye 1 applic ophthalmic (eye) TID #3.5 12/26/22 ointment grams omeprazole 20 mg capsule,delayed 20 mg PO DAILY 6 weeks #42 caps 12/26/22 release Allergies Allergy/AdvReac Type Severity Reaction Status Date / Time amoxicillin [AMOXICILLIN] Allergy Mild Verified 12/21/22 14:53 Penicillins Allergy Verified 12/21/22 14:53 PFS PFS Disclaimer: The information contained in this section may have been updated after the patient was seen, as this information can be updated by other users. 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 Acne Anxiety Depression History of anemia History of gastroesophageal reflux (
--- NOTE | 2022-12-26 04:10 | XR_ITS ---
PROCEDURE INFORMATION: Exam: XR Abdomen Exam date and time: 12/26/2022 4:42 AM Age: 22 years old Clinical indication: Patient HX: PT states mid abdominal pain & also intermittent left sided pain x3 weeks; Additional info: Abd pain TECHNIQUE: Imaging protocol: Radiologic exam of the abdomen. Views: Frontal supine view of the abdomen. 1 View. COMPARISON: CT ABDOMEN PELVIS W CON 12/15/2022 3:12 PM FINDINGS: Gastrointestinal tract: Normal. No bowel dilation. Bones/joints: Unremarkable. IMPRESSION: No acute findings.
[2022-12-26 04:39] LABS: Basophils # 0.1 K/mm3 (0-0.2); Chloride 105 mmol/L (98-107); Eosinophils # 0.4 K/mm3 (0.0-0.4); Hematocrit 42.9 % (37.0-47.0); Hemoglobin 14.2 g/dL (12.2-16.2); Lymphocytes # 3.4 K/mm3 (0.7-4.5); Lymphocytes % 41.4 % (10-50); Mean Corpuscular HGB Conc 33.1 g/dL (31.8-35.4); Mean Corpuscular Hemoglobin 30.9 pg (27.0-31.2); Mean Corpuscular Volume 93.3 fl (81-99); Mean Platelet Volume 8.2 fl (7.4-10.4); Monocytes # 0.7 K/mm3 (0.1-1.0); Monocytes % 8.4 % (1.7-9.3); Neutrophils # 3.6 K/mm3 (1.8-7.8); Neutrophils % 44.2 % (37.0-80.0); Platelet Count 382 K/mm3 (142-424); Red Blood Count 4.59 M/mm3 (4.20-5.40); Red Cell Distribution Width 13.4 % (11.5-17.5); Sodium 141 mmol/L (136-145); White Blood Count 8.2 K/mm3 (4.5-13.0)
[2022-12-26 04:40] LABS: Potassium 3.8 mmoL/L (3.5-5.1)
[2022-12-26 04:42] LABS: Alanine Aminotransferase 50 U/L (12-78); Albumin Level 4.2 g/dl (3.5-5.0); Albumin/Globulin Ratio 1.2 (1.1-1.8); Alkaline Phosphatase 151 U/L (38-126); Anion Gap 13.8 mEq/L (5-15); Aspartate Amino Transferase 43 U/L (14-36); Bilirubin,Total 0.6 mg/dl (0.2-1.3); Blood Urea Nitrogen 18 mg/dl (7-17); Carbon Dioxide 26 mmol/L (22.0-30.0); Creatinine Clearance Estimated 165 mL/min (50-200); Estimated Glomerular Filt Rate 91 ml/min (>60); GFR (African American) 111 ML/MIN (>60); Globulin 3.5 g/dL (1.3-3.2); Total Protein,Serum 7.7 g/dl (6.3-8.2)
[2022-12-26 04:43] LABS: Calcium 9.5 mg/dl (8.4-10.2); Glucose 104 mg/dl (74-100)
[2022-12-26 04:46] LABS: Lipase 69 U/L (23-300)
[2022-12-26 04:47] LABS: HCG Qualitative, Serum Negative (Negative)
[2022-12-26 05:06] VITALS: BP 119/89; PULSE 87; RESP 18; TEMP 36.6; O2SAT 97
== END 2022-12-26 05:16 | disposition home or self-care (01) ==
PROVIDERS: Emergency Provider Emergency Medicine
DX: R10.13 Epigastric pain (principal); L03.213 Periorbital cellulitis; H00.014 Hordeolum externum left upper eyelid; F41.9 Anxiety disorder, unspecified; F32.A Depression, unspecified; E28.2 Polycystic ovarian syndrome; E07.9 Disorder of thyroid, unspecified; Z87.891 Personal history of nicotine dependence
CPT/HCPCS: 74018; 80053; 83690; 84703; 85025; 99285

== ENCOUNTER → 2023-01-17 06:39 | Outpatient (CLI) | payer OTHER, SELFPAY ==
--- NOTE | 2023-01-17 06:43 | US_ITS ---
FINAL REPORT CLINICAL HISTORY: Abd pain FINDINGS: Sonographic images of the abdomen were obtained. The liver has an unremarkable appearance with normal echogenicity. There is sludge in the gallbladder. There is no evidence of biliary ductal dilatation. The common hepatic duct measures 3 mm, which is within normal limits. The pancreas is difficult to visualized. The spleen size is normal. The right kidney measures 11.2 cm in length. The left kidney measures 11.0 cm in length. There is normal renal echogenicity. There is no evidence of hydronephrosis. The aorta has an unremarkable appearance. Limited images of the inferior vena cava are unremarkable. IMPRESSION: Gallbladder sludge. Reviewed, Interpreted and Dictated by Darrius Corado MD Transcribed by Arlette Hall Authenticated and [facility]
== END ==
PROVIDERS: PCP Nurse Practitioner Family; Visit Provider Nurse Practitioner Family
DX: R10.13 Epigastric pain (principal); R10.9 Unspecified abdominal pain
CPT/HCPCS: 76700

== ENCOUNTER 2023-01-22 05:20 | Emergency (ER) | payer OTHER, SELFPAY ==
[2023-01-22 05:30] VITALS: BP 139/88; PULSE 89; RESP 17; TEMP 36.7; O2SAT 99; BMI 32.3
--- NOTE | 2023-01-22 05:32 | HMH.EDGENADL ---
Discharge Plan Disposition Patient Disposition: Home, Self-Care Chief Complaint: Abdominal Pain Prescriptions Prescriptions: No Action polyethylene glycol 3350 [Miralax] 17 gram/dose powder 17 g PO DAILY Qty: 238 0RF dicyclomine 10 mg capsule 10 mg PO TID Qty: 90 2RF ondansetron 4 mg tablet,disintegrating 4 mg PO Q8H PRN (Reason: nausea and vomiting) Qty: 30 0RF famotidine [Pepcid] 20 mg tablet 20 mg PO BID 42 Days Qty: 84 0RF omeprazole 20 mg capsule,delayed release(DR/EC) 20 mg PO DAILY 42 Days Qty: 42 0RF Referrals Follow up/Referrals: Loi Simpson APRN [Primary Care Provider] - See instructions Clinical Impressions Clinical Impression: Abdominal pain Qualifiers: Abdominal location: right upper quadrant Qualified Code(s): R10.11 - Right upper quadrant pain Instructions Patient Instructions: DI for Acute Abdominal Pain Discharge ED Provider: Glenn Ro General Adult HPI <Milvia Coffey DO - Last Filed: 01/22/23 07:07> General Chief complaint: Abdominal Pain Stated complaint: right side pain Time Seen by Provider: 01/22/23 05:26 History of Present Illness HPI narrative: This patient is a 22-year-old female with history of constipation, dyspepsia, and PCOS presenting to the emergency department for evaluation with concern for right upper quadrant abdominal pain, nausea, and vomiting that started around 230 this morning. She states that she has been dealing with this for a while now and has had multiple ER visits as well as visits with her primary care provider for similar symptoms over the last several weeks. She states that she has been put on a PPI and has been given nausea medication, but she ran out of the nausea medication. Emesis is nonbloody nonbilious. She states that she is having diarrhea. She also notes a low-grade fever with a temperature of 99.9 ?F at home. She did not take medications prior to arrival. She states that she had an ultrasound on 01/17/2023, which on medical record review showed biliary sludge. Related Data Previous Rx's Medication Instructions Recorded famotidine 20 mg tablet (Pepcid) 20 mg PO BID 6 weeks #84 tabs 12/16/22 polyethylene glycol 3350 17 17 g PO DAILY #238 grams 12/21/22 gram/dose oral powder (Miralax) omeprazole 20 mg capsule,delayed 20 mg PO DAILY 6 weeks #42 caps 12/26/22 release dicyclomine 10 mg capsule 10 mg PO TID #90 caps 01/05/23 ondansetron 4 mg disintegrating 4 mg PO Q8H PRN nausea and 01/05/23 tablet vomiting #30 tabs Allergies Allergy/AdvReac Type Severity Reaction Status Date / Time amoxicillin [AMOXICILLIN] Allergy Mild Verified 01/05/23 13:28 Penicillins Allergy Verified 01/05/23 13:28 PFSH <Milvia Coffey DO - Last Filed: 01/22/23 07:07> PFS Disclaimer: The information contained in this section may have been updated after the patient was seen, as this information can be updated by other users. 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 Acne Anxiety Depression History of anemia History of gastroesophageal reflux (GERD) Insomnia Migraine PCOS (polycystic ovarian syndrome) Pelvic pain Right ovarian cyst Tendinitis of right forearm Thyroid disease Surgical History History of tympanostomy tube placement Family History Other Diabetes Social History Smoking Status: Unknown if ever smoked second hand exposure: No alcohol intake: never substance use type: denies use current occupational status: other Travel in the last 8 weeks: None household members: family housing: house number of children: 0 current occupational exposures/hazards: No <Milvia Coffey DO - Last Filed: 01/22/23 07:07> ROS Obtained: Yes All systems reviewed & no additional complaints except as documented Physic
[2023-01-22 05:54] LABS: Microscopic, Urine URINE MICROSCOPIC (MICROSCOPIC)
[2023-01-22 05:56] LABS: Basophils # 0.1 K/mm3 (0-0.2); Basophils % 1.4 % (0.1-2.0); Eosinophils # 0.4 K/mm3 (0.0-0.4); Eosinophils % 5.8 % (0.1-12.0); Hematocrit 42.5 % (37.0-47.0); Hemoglobin 13.7 g/dL (12.2-16.2); Lymphocytes # 3.2 K/mm3 (0.7-4.5); Lymphocytes % 44.7 % (10-50); Mean Corpuscular HGB Conc 32.2 g/dL (31.8-35.4); Mean Corpuscular Hemoglobin 29.7 pg (27.0-31.2); Mean Platelet Volume 8.2 fl (7.4-10.4); Monocytes # 0.4 K/mm3 (0.1-1.0); Monocytes % 5.8 % (1.7-9.3); Neutrophils # 3.1 K/mm3 (1.8-7.8); Neutrophils % 42.3 % (37.0-80.0); Platelet Count 400 K/mm3 (142-424); Red Blood Count 4.62 M/mm3 (4.20-5.40); Red Cell Distribution Width 13.4 % (11.5-17.5); White Blood Count 7.3 K/mm3 (4.5-13.0)
[2023-01-22 05:58] LABS: Appearance,Urine SL CLOUDY (Clear); Bilirubin,Urine Negative (Negative); Blood, Urine Negative (Negative); Color,Urine YELLOW (Yellow); Glucose,Urine (UA) Negative (Negative); Ketones,Urine Negative (Negative); Leukocyte Esterase,Urine Negative (Negative); Nitrate,Urine Negative (Negative); Protein,Urine Negative (Negative); Specific Gravity, Urine >= 1.030 (1.005-1.030)
[2023-01-22 06:05] LABS: Alanine Aminotransferase 33 U/L (12-78); Albumin Level 4.4 g/dl (3.5-5.0); Albumin/Globulin Ratio 1.3 (1.1-1.8); Alkaline Phosphatase 114 U/L (38-126); Anion Gap 13.9 mEq/L (5-15); Aspartate Amino Transferase 39 U/L (14-36); Bilirubin,Total 0.7 mg/dl (0.2-1.3); Blood Urea Nitrogen 17 mg/dl (7-17); Calcium 8.9 mg/dl (8.4-10.2); Carbon Dioxide 25 mmol/L (22.0-30.0); Chloride 106 mmol/L (98-107); Creatinine Clearance Estimated 161 mL/min (50-200); Estimated Glomerular Filt Rate 91 ml/min (>60); GFR (African American) 111 ML/MIN (>60); Globulin 3.5 g/dL (1.3-3.2); Glucose 107 mg/dl (74-100); HCG Qualitative, Serum Negative (Negative); Lipase 56 U/L (23-300); Potassium 3.9 mmoL/L (3.5-5.1); Sodium 141 mmol/L (136-145); Total Protein,Serum 7.9 g/dl (6.3-8.2)
--- NOTE | 2023-01-22 06:14 | US_ITS ---
FINAL REPORT TECHNIQUE: Sonographic images of the right upper quadrant were obtained. CLINICAL HISTORY: worsening RUQ pain/n/v FINDINGS: PANCREAS: Unremarkable. LIVER: Homogeneous. No focal hepatic lesion. No intrahepatic biliary ductal dilatation. Patent portal vein. GALLBLADDER: No gallstones. No gallbladder wall thickening or pericholecystic fluid. COMMON DUCT: 2 mm. Normal for age. RIGHT KIDNEY: The right kidney measures 10.7 cm. There is no hydronephrosis, mass, or stone. FREE FLUID: None. IMPRESSION: Unremarkable ultrasound of the right upper quadrant. Reviewed, Interpreted and Dictated by Minnie Munoz MD Transcribed by Debbie Riggs Authenticated and [facility]
[2023-01-22 06:17] LABS: Bacteria,Urine 1+ /lpf; WBC,Urine Occasional #/hpf (0-3); Yeast,Urine Occasional /lpf
--- NOTE | 2023-01-22 06:50 | PC.NURSE ---
PT TO US
--- NOTE | 2023-01-22 07:14 | PC.NURSE ---
PT RETURNED FROM CT
--- NOTE | 2023-01-22 07:37 | PC.NURSE ---
Dr. Ro at BS to update pt on POC
--- NOTE | 2023-01-22 07:50 | PC.NURSE ---
lab at bedside for hepatitis panel collection
[2023-01-22 08:00] VITALS: BP 125/80; PULSE 80; RESP 17; TEMP 36.7; O2SAT 98
[2023-01-23 09:21] LABS: HBsAg Screen Negative (Negative); HCV Ab Non Reactive (Non Reactive); Hep A Ab, IGM Negative (Negative); Hep B Core Ab, IgM Negative (Negative)
== END 2023-01-22 08:15 | disposition home or self-care (01) ==
PROVIDERS: Emergency Medicine; Emergency Provider Emergency Medicine; PCP Nurse Practitioner Family
DX: R10.11 Right upper quadrant pain (principal); K21.9 Gastro-esophageal reflux disease without esophagitis; G47.00 Insomnia, unspecified; F41.9 Anxiety disorder, unspecified; F32.A Depression, unspecified
CPT/HCPCS: 36415; 76705; 80053; 80074; 81001; 83690; 84703; 85025; 96361; 96374; 96375; 99284; J0131; J2405

== ENCOUNTER 2023-01-23 09:17 | Emergency (ER) | payer OTHER, SELFPAY ==
[2023-01-23] VITALS (7 sets, daily range): BP systolic 117–157; BP diastolic 80–93; PULSE 75–84; RESP 15–19; TEMP 36.8–36.9; O2SAT 97–98; BMI 32.3
--- NOTE | 2023-01-23 09:16 | ECG_ITS ---
APPROVED REPORT Exam: Resting ECG HR:94 bpm ECG Measurements Heart Rate 94 AXES NM 129 P 37 QRSd 88 QRS 58 QT 354 T 37 QTc 406 Conclusion SINUS RHYTHM NORMAL ECG UNCONFIRMED REPORT Electronically signed by : Dinesh Krishnan MD 01/23/2023 20:00:12
--- NOTE | 2023-01-23 09:36 | XR_ITS ---
FINAL REPORT CLINICAL HISTORY: right CP COMPARISON: 02/27/2022 FINDINGS: A portable view of the chest was obtained. Cardiac and mediastinal silhouettes are within normal limits. The lungs are clear. There is no pleural effusion or pneumothorax. IMPRESSION: No acute process on this portable exam. Reviewed, Interpreted and Dictated by Minnie Munoz MD Transcribed by Sheryl Perez Authenticated and [facility]
[2023-01-23 09:51] LABS: Basophils # 0.1 K/mm3 (0-0.2); Basophils % 0.7 % (0.1-2.0); Eosinophils # 0.6 K/mm3 (0.0-0.4); Eosinophils % 7.1 % (0.1-12.0); Hematocrit 44.2 % (37.0-47.0); Hemoglobin 14.3 g/dL (12.2-16.2); Lymphocytes # 3.2 K/mm3 (0.7-4.5); Lymphocytes % 39.1 % (10-50); Mean Corpuscular HGB Conc 32.3 g/dL (31.8-35.4); Mean Corpuscular Hemoglobin 29.8 pg (27.0-31.2); Mean Corpuscular Volume 92.1 fl (81-99); Mean Platelet Volume 8.6 fl (7.4-10.4); Monocytes # 0.5 K/mm3 (0.1-1.0); Monocytes % 5.4 % (1.7-9.3); Neutrophils % 47.8 % (37.0-80.0); Platelet Count 441 K/mm3 (142-424); Red Cell Distribution Width 13.3 % (11.5-17.5); White Blood Count 8.3 K/mm3 (4.5-13.0)
--- NOTE | 2023-01-23 09:51 | PC.NURSE ---
RAD at BS for portable xray
--- NOTE | 2023-01-23 09:56 | HMH.EDGENADL ---
Discharge Plan Disposition Patient Disposition: Home, Self-Care Prescriptions Prescriptions: New esomeprazole magnesium 20 mg capsule,delayed release(DR/EC) 20 mg PO DAILY 28 Days Qty: 28 0RF No Action polyethylene glycol 3350 [Miralax] 17 gram/dose powder 17 g PO DAILY Qty: 238 0RF dicyclomine 10 mg capsule 10 mg PO TID Qty: 90 2RF ondansetron 4 mg tablet,disintegrating 4 mg PO Q8H PRN (Reason: nausea and vomiting) Qty: 30 0RF famotidine [Pepcid] 20 mg tablet 20 mg PO BID 42 Days Qty: 84 0RF omeprazole 20 mg capsule,delayed release(DR/EC) 20 mg PO DAILY 42 Days Qty: 42 0RF ondansetron 4 mg tablet,disintegrating 4 mg PO Q6H PRN (Reason: nausea and vomiting) Qty: 10 0RF Activity Restrictions/Add. Instructions Additional Instructions/Restrictions: Call your family doctor to establish care for this visit to the emergency department and schedule follow-up within 48 hours to ensure improvement. If you have any worsening of your condition or any other concerning signs or symptoms, return to the emergency department or your primary care doctor for further evaluation. Take Tylenol 1000 mg every 6 hours (4 times daily). Avoid ibuprofen because it can upset the stomach and kidneys. Clinical Impressions Clinical Impression: Chest pain Discharge ED Provider: Glenn Ro General Adult [facility] General Chief complaint: Chest Pain Stated complaint: chest pain Time Seen by Provider: 01/23/23 09:24 Mode of Arrival: Ambulatory Source of Information: Patient Limitations: No Limitations Description of Symptoms (Recalled from ER Triage Doc. by RN): 22 yo F presents to ED with c/o chest pain. pt reports that she was seen in ED yesterday and diagnosed with sludge in gallbladder . pt was sent home with zofran. MEDINA abd pain ongoing for approx 3 months. pt states chest pain located in center of chest radiates up and down the middle of her chest. symptoms began last night. History of Present Illness HPI narrative: Patient is a 22-year-old female with history of chronic chest pain, illness anxiety disorder, chronic abdominal pain, depression presenting with chest pain. Patient states that she woke up today, 01/23 with acute chest pain. Had not eaten, drink, taken any meds prior to this time. Center of her chest, does not radiate. Mild in intensity and burning/pressure. Not associate with shortness of breath, diaphoresis, weakness, but associated with nausea without vomiting. Patient states that she has been told that she had a history of acid reflux, but is not taking medication for this. Related Data Previous Rx's Medication Instructions Recorded famotidine 20 mg tablet (Pepcid) 20 mg PO BID 6 weeks #84 tabs 12/16/22 polyethylene glycol 3350 17 17 g PO DAILY #238 grams 12/21/22 gram/dose oral powder (Miralax) omeprazole 20 mg capsule,delayed 20 mg PO DAILY 6 weeks #42 caps 12/26/22 release dicyclomine 10 mg capsule 10 mg PO TID #90 caps 01/05/23 ondansetron 4 mg disintegrating 4 mg PO Q8H PRN nausea and 01/05/23 tablet vomiting #30 tabs ondansetron 4 mg disintegrating 4 mg PO Q6H PRN nausea and 01/22/23 tablet vomiting #10 tabs esomeprazole magnesium 20 mg 20 mg PO DAILY 28 days #28 caps 01/23/23 capsule,delayed release Allergies Allergy/AdvReac Type Severity Reaction Status Date / Time amoxicillin [AMOXICILLIN] Allergy Mild Verified 01/05/23 13:28 Penicillins Allergy Verified 01/05/23 13:28 [facility] Disclaimer: The information contained in this section may have been updated after the patient was seen, as this information can be updated by other users. 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 Acne Anxiety Depression History of anemia History of gastroesophageal reflux (GERD) Insomnia Migraine PCOS (polycystic ovarian syndrome) Pelvic pain Right ovarian cyst Tendinitis of right forearm Thyroid disease Surgical History (Reviewed 01/22/23 @ 05:3
[2023-01-23 10:15] LABS: Alanine Aminotransferase 29 U/L (12-78); Albumin Level 4.1 g/dl (3.5-5.0); Albumin/Globulin Ratio 1.3 (1.1-1.8); Alkaline Phosphatase 106 U/L (38-126); Anion Gap 15.3 mEq/L (5-15); Aspartate Amino Transferase 35 U/L (14-36); Bilirubin,Total 0.4 mg/dl (0.2-1.3); Blood Urea Nitrogen 10 mg/dl (7-17); Carbon Dioxide 22 mmol/L (22.0-30.0); Chloride 107 mmol/L (98-107); Creatinine Clearance Estimated 161 mL/min (50-200); Estimated Glomerular Filt Rate 91 ml/min (>60); GFR (African American) 111 ML/MIN (>60); Globulin 3.2 g/dL (1.3-3.2); Glucose 95 mg/dl (74-100); Lipase 59 U/L (23-300); Potassium 4.3 mmoL/L (3.5-5.1); Sodium 140 mmol/L (136-145); Total Protein,Serum 7.3 g/dl (6.3-8.2)
[2023-01-23 10:32] LABS: Troponin I < 0.01 ng/ml (0.00-0.034)
== END 2023-01-23 12:05 | disposition home or self-care (01) ==
PROVIDERS: Emergency Provider Emergency Medicine; PCP Nurse Practitioner Family
DX: R07.9 Chest pain, unspecified (principal); R11.2 Nausea with vomiting, unspecified; F41.9 Anxiety disorder, unspecified; F32.A Depression, unspecified; K21.9 Gastro-esophageal reflux disease without esophagitis; G43.909 Migraine, unspecified, not intractable, without status migrainosus; E28.2 Polycystic ovarian syndrome; E07.9 Disorder of thyroid, unspecified
CPT/HCPCS: 71045; 80053; 83690; 84484; 85025; 93005; 96361; 96374; 99285; J3475

== ENCOUNTER 2023-01-29 19:02 | Emergency (ER) | payer OTHER, SELFPAY ==
[2023-01-29 19:03] VITALS: BP 131/90; PULSE 105; RESP 17; TEMP 36.8; O2SAT 98; BMI 32.3
[2023-01-29 19:41] VITALS: BP 126/78; PULSE 98; RESP 17; O2SAT 97
[2023-01-29 19:42] LABS: Microscopic, Urine URINE MICROSCOPIC (MICROSCOPIC)
[2023-01-29 19:45] LABS: Basophils # 0.1 K/mm3 (0-0.2); Basophils % 0.9 % (0.1-2.0); Eosinophils # 0.7 K/mm3 (0.0-0.4); Eosinophils % 6.4 % (0.1-12.0); Hematocrit 41.5 % (37.0-47.0); Hemoglobin 13.9 g/dL (12.2-16.2); Lymphocytes # 3.5 K/mm3 (0.7-4.5); Lymphocytes % 33.4 % (10-50); Mean Corpuscular HGB Conc 33.6 g/dL (31.8-35.4); Mean Corpuscular Hemoglobin 30.1 pg (27.0-31.2); Mean Corpuscular Volume 89.7 fl (81-99); Monocytes # 0.5 K/mm3 (0.1-1.0); Monocytes % 5.1 % (1.7-9.3); Neutrophils # 5.7 K/mm3 (1.8-7.8); Neutrophils % 54.1 % (37.0-80.0); Platelet Count 438 K/mm3 (142-424); Red Blood Count 4.63 M/mm3 (4.20-5.40); Red Cell Distribution Width 13.3 % (11.5-17.5); White Blood Count 10.5 K/mm3 (4.5-13.0)
[2023-01-29 19:48] LABS: Chloride 106 mmol/L (98-107); Sodium 139 mmol/L (136-145)
[2023-01-29 19:49] LABS: Potassium 3.7 mmoL/L (3.5-5.1)
[2023-01-29 19:51] LABS: Alanine Aminotransferase 68 U/L (12-78); Albumin Level 4.2 g/dl (3.5-5.0); Albumin/Globulin Ratio 1.2 (1.1-1.8); Alkaline Phosphatase 121 U/L (38-126); Anion Gap 13.7 mEq/L (5-15); Aspartate Amino Transferase 59 U/L (14-36); Bilirubin,Total 0.3 mg/dl (0.2-1.3); Blood Urea Nitrogen 16 mg/dl (7-17); Calcium 8.7 mg/dl (8.4-10.2); Carbon Dioxide 23 mmol/L (22.0-30.0); Creatinine Clearance Estimated 184 mL/min (50-200); Estimated Glomerular Filt Rate 107 ml/min (>60); GFR (African American) 129 ML/MIN (>60); Globulin 3.4 g/dL (1.3-3.2); Glucose 116 mg/dl (74-100); Lipase 70 U/L (23-300); Total Protein,Serum 7.6 g/dl (6.3-8.2)
[2023-01-29 19:51] LABS: Urine Pregnancy, HCG Qual. Negative (Negative)
[2023-01-29 20:05] LABS: Appearance,Urine CLEAR (Clear); Bilirubin,Urine Negative (Negative); Blood, Urine Negative (Negative); Color,Urine YELLOW (Yellow); Glucose,Urine (UA) Negative (Negative); Ketones,Urine Negative (Negative); Leukocyte Esterase,Urine Negative (Negative); Nitrate,Urine Negative (Negative); Protein,Urine Negative (Negative); Specific Gravity, Urine <= 1.005 (1.005-1.030); Urobilinogen,Urine 0.2 EU/dl (0.2)
[2023-01-29 20:06] LABS: WBC,Urine Occasional #/hpf (0-3)
--- NOTE | 2023-01-29 20:06 | HMH.EDGENADL ---
Discharge Plan Disposition Patient Disposition: Home, Self-Care Condition: Good Prescriptions Prescriptions: No Action ondansetron 4 mg tablet,disintegrating 4 mg PO Q4HP PRN (Reason: Nausea And Vomiting) dicyclomine 10 mg capsule 10 mg PO TIDP PRN (Reason: Abdominal Pain) esomeprazole magnesium 20 mg capsule,delayed release(DR/EC) 20 mg PO DAILY Referrals Follow up/Referrals: Loi Simpson APRN [Primary Care Provider] - See instructions Activity Restrictions/Add. Instructions Additional Instructions/Restrictions: You were evaluated in the emergency department today. Please continue taking your medications at home as prescribed. Follow-up closely with your primary care provider. Keep your outpatient schedule HIDA scan. Return to the emergency department for new or worsening symptoms. Clinical Impressions Clinical Impression: Gastritis, Abdominal pain Stand Alone Forms Stand Alone Forms: Work/School Release Instructions Patient Instructions: DI for Gastritis, DI for Acute Abdominal Pain Discharge ED Provider: Milvia Coffey General Adult HPI General Chief complaint: Abdominal Pain Stated complaint: abd pain Time Seen by Provider: 01/29/23 19:38 Mode of Arrival: Ambulatory Source of Information: Patient Limitations: No Limitations Description of Symptoms (Recalled from ER Triage Doc. by RN): 22 F presents with continued issues regarding her gallbladder. She reports being seen here prior and has been referred to a surgeon. She has a HIDA scan scheduled for this week; however, this evening she was sitting on the couch and began having Epigastric pain that radiated to her RLQ and LUQ. The pain made her nauseated and she began to vomit. This has not occurred prior which worried her. Patient states the pain is 10/10 and sharp currently. History of Present Illness HPI narrative: This patient is a 22-year-old female with a history of recurrent and chronic abdominal pain presenting to the emergency department for evaluation with concern for abdominal pain. She is scheduled for a HIDA scan this for work-up of possible biliary issues. Patient is been to the emergency department multiple times in the past For pain and has had diagnostic imaging multiple times to evaluate for possible biliary or other acute pathology. On medical record review, she has had multiple abdominal ultrasounds as well as abdominal CT that have been nondiagnostic. Today, she notes 30 minutes prior to arrival she had sharp left upper quadrant abdominal pain that made her feel nauseated. She vomited after this. Emesis is nonbloody and nonbilious. She states that typically the pain is not in the left upper quadrant, typically it is on the right side. She denies any fevers, hematemesis, changes in bowel movements, dysuria, rashes, or swelling. No other concerns noted at this time. Related Data Home Medications Medication Instructions Recorded Confirmed dicyclomine 10 mg capsule 10 mg PO TIDP PRN Abdominal Pain 01/29/23 01/29/23 esomeprazole magnesium 20 mg 20 mg PO DAILY Acid Reflux 01/29/23 01/29/23 capsule,delayed release ondansetron 4 mg disintegrating 4 mg PO Q4HP PRN Nausea And 01/29/23 01/29/23 tablet Vomiting Allergies Allergy/AdvReac Type Severity Reaction Status Date / Time amoxicillin [AMOXICILLIN] AdvReac Mild Gastrointestinal Verified 01/29/23 19:34 Upset Penicillins AdvReac Mild Gastrointestinal Verified 01/29/23 19:34 Upset PFSH PFSH Disclaimer: The information contained in this section may have been updated after the patient was seen, as this information can be updated by other users. 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 Acne Anxiety Depression History of anemia History of gastroesophageal reflux (GERD) Insomnia Migraine PCOS (polycystic ovarian syndrome) Pelvic pain Right ovarian cyst Tendinitis of right forearm Thyroid disease S
[2023-01-29 21:04] VITALS: BP 121/78; PULSE 95; RESP 17; TEMP 36.8; O2SAT 98
== END 2023-01-29 21:04 | disposition home or self-care (01) ==
PROVIDERS: Emergency Provider Emergency Medicine; PCP Nurse Practitioner Family
DX: K29.70 Gastritis, unspecified, without bleeding (principal); R10.12 Left upper quadrant pain; R11.2 Nausea with vomiting, unspecified; F41.9 Anxiety disorder, unspecified; F32.A Depression, unspecified; E28.2 Polycystic ovarian syndrome; E07.9 Disorder of thyroid, unspecified
CPT/HCPCS: 80053; 81001; 81025; 83690; 85025; 96361; 96374; 96375; 99285; J0131; J2405

== ENCOUNTER → 2023-02-01 10:03 | Outpatient (CLI) | payer OTHER, SELFPAY ==
--- NOTE | 2023-02-01 10:09 | NM_ITS ---
FINAL REPORT CLINICAL HISTORY: Abd sludge n/v x 3 months 10:30 am 8.39 [facility]ci tc choletec 1.9 mcg of cck injected into rt ant pain with cck FINDINGS: Sequential anterior projection images of the abdomen were obtained after the intravenous injection of 8.39 mCi technetium 99m Choletec. There is normal uptake of radiotracer by the liver. The bile ducts and gallbladder are visualized by 5 minutes. Bowel activity is noted by 15 minutes. After 1 hour, 1.9 ?g of CCK was injected intravenously for calculation of gallbladder ejection fraction. The gallbladder ejection fraction is 68%, which is within normal limits. IMPRESSION: No evidence of cystic duct or bile duct obstruction. Normal gallbladder ejection fraction of 68%. Reviewed, Interpreted and Dictated by Abdi Guerin III, MD Transcribed by Laquita Merritt Authenticated and [facility]
== END ==
PROVIDERS: PCP Nurse Practitioner Family; Visit Provider Nurse Practitioner Family
DX: R10.9 Unspecified abdominal pain (principal); K82.8 Other specified diseases of gallbladder
CPT/HCPCS: 78227; A9537; J2805

== ENCOUNTER 2023-03-02 12:44 | Emergency (ER) | payer OTHER, SELFPAY ==
[2023-03-02] VITALS (15 sets, daily range): BP systolic 93–141; BP diastolic 49–95; PULSE 63–106; RESP 16–17; TEMP 36.8; O2SAT 96–100; BMI 33.9
[2023-03-02 13:21] LABS: Microscopic, Urine URINE MICROSCOPIC (MICROSCOPIC)
[2023-03-02 13:24] LABS: Appearance,Urine CLEAR (Clear); Bilirubin,Urine Negative (Negative); Blood, Urine Negative (Negative); Color,Urine YELLOW (Yellow); Glucose,Urine (UA) Negative (Negative); Ketones,Urine Negative (Negative); Leukocyte Esterase,Urine Negative (Negative); Nitrate,Urine Negative (Negative); Protein,Urine Negative (Negative); Specific Gravity, Urine >= 1.030 (1.005-1.030)
--- NOTE | 2023-03-02 13:24 | CT_ITS ---
FINAL REPORT CLINICAL HISTORY: abd pain COMPARISON: 12/15/2022 FINDINGS: CT OF THE ABDOMEN AND PELVIS WITH CONTRAST Axial CT images of the abdomen and pelvis were obtained after the administration of iv contrast. Coronal and sagittal reformatted images were also obtained and reviewed.This study was performed with techniques to keep radiation doses as low as reasonably achievable (ALARA). Individualized dose reduction techniques using automated exposure control or adjustment of mA and/or kV according to the patient's size were employed. Abdomen: The lung bases are clear. The heart is normal in size. The liver has an unremarkable appearance, without evidence of mass or biliary ductal dilatation. The spleen is unremarkable. No adrenal mass is present. The pancreas has an unremarkable appearance. The kidneys are normal, without evidence of mass or hydronephrosis. The aorta is normal in caliber. There is no free fluid or adenopathy. No mass or abnormal fluid collection is seen. Pelvis: The appendix normal the urinary bladder is unremarkable. There is a 29 mm right adnexal mass, likely an ovarian cyst. There is a small amount of free fluid, likely physiologic or reactive. There is no evidence of bowel obstruction. IMPRESSION: 29 mm right ovarian cyst, with a small amount of free free fluid, likely physiologic or reactive. Otherwise unremarkable CT of the upper abdomen and pelvis. Reviewed, Interpreted and Dictated by Abdi Guerin III, MD Transcribed by Sheryl ePrez Authenticated and [facility]
--- NOTE | 2023-03-02 13:26 | HMH.EDGENADL ---
Discharge Plan Disposition Patient Disposition: Home, Self-Care Prescriptions Prescriptions: No Action metoclopramide HCl [Reglan] 10 mg tablet 10 mg PO QAC Qty: 90 0RF Rx Instructions: administer 30 minutes before meals dicyclomine 10 mg capsule 10 mg PO TIDP PRN (Reason: Abdominal Pain) Referrals Follow up/Referrals: Loi Simpson APRN [Primary Care Provider] - See instructions Activity Restrictions/Add. Instructions Additional Instructions/Restrictions: At this time it was felt you are safe to be discharged home. If new or worsening symptoms please do not hesitate to return the emergency department. If symptoms persist please follow-up with your family doctor as you are able. Clinical Impressions Clinical Impression: Abdominal pain Qualifiers: Abdominal location: right upper quadrant Qualified Code(s): R10.11 - Right upper quadrant pain Instructions Patient Instructions: DI for Acute Abdominal Pain Discharge ED Provider: Diamante Jama Adult HPI <Diamante Jama MD - Last Filed: 03/02/23 15:52> General Chief complaint: Abdominal Pain Stated complaint: abd pain Time Seen by Provider: 03/02/23 13:15 Mode of Arrival: Ambulatory Source of Information: Patient Limitations: No Limitations Description of Symptoms (Recalled from ER Triage Doc. by RN): Presents to ED with c/o abd pain that started 4 months ago that has progressively gotten worse. Patient reports having a Hida scan last month and has a EGD schedules for May 03. Patient reports taking Tylenol @1030 and Ibuprofen last night for pain with no relief. Patient reports having diarrhea this morning. Last normal BM was 4 months ago patient states. History of Present Illness HPI narrative: This 23-year-old female presents to the emergency department with 4 months of right upper quadrant pain that has been progressively worse. She states she has a HIDA scan last month and EGD scheduled on April but in the last 24 hours her pain has been persistent and she has not had relief. She describes in the right upper quadrant, it is usually worse after eating but has been persistently bad today. She took ibuprofen last night without relief. She had diarrhea this morning. Nonbloody, not black Related Data Home Medications Medication Instructions Recorded Confirmed dicyclomine 10 mg capsule 10 mg PO TIDP PRN Abdominal Pain 01/29/23 02/06/23 Previous Rx's Medication Instructions Recorded metoclopramide HCl 10 mg tablet 10 mg PO QAC #90 tabs 02/02/23 (Reglan) Allergies Allergy/AdvReac Type Severity Reaction Status Date / Time amoxicillin [AMOXICILLIN] AdvReac Mild Gastrointestinal Verified 02/15/23 12:39 Upset Penicillins AdvReac Mild Gastrointestinal Verified 02/15/23 12:39 Upset <Pako Duron MD - Last Filed: 03/02/23 17:32> History of Present Illness HPI narrative: This 23-year-old female presents to the emergency department with 4 months of right upper quadrant pain that has been progressively worse. She states she has a HIDA scan last month and EGD scheduled on April but in the last 24 hours her pain has been persistent and she has not had relief. She describes in the right upper quadrant, it is usually worse after eating but has been persistently bad today. She took ibuprofen last night without relief. She had diarrhea this morning. Nonbloody, not black. PFSH <Diamante Jama MD - Last Filed: 03/02/23 15:52> [facility] Disclaimer: The information contained in this section may have been updated after the patient was seen, as this information can be updated by other users. 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 Acne Anxiety Depression History of anemia History of gastroesophageal reflux (GERD) Insomnia Migraine PCOS (polycystic ovarian syndrome) Pelvic pain Right ovarian cyst Tendinitis of right forearm Thyroid disease Surgical History (Reviewed 02/15/23 @ 12:
[2023-03-02 13:36] LABS: Bacteria,Urine 1+ /lpf; WBC,Urine Occasional #/hpf (0-3)
[2023-03-02 14:13] LABS: Chloride 105 mmol/L (98-107); Potassium 3.5 mmoL/L (3.5-5.1); Sodium 141 mmol/L (136-145)
[2023-03-02 14:14] LABS: Basophils # 0.1 K/mm3 (0-0.2); Basophils % 0.7 % (0.1-2.0); Eosinophils # 0.7 K/mm3 (0.0-0.4); Eosinophils % 6.2 % (0.1-12.0); HCG Qualitative, Serum Negative (Negative); Hematocrit 40.9 % (37.0-47.0); Hemoglobin 14.3 g/dL (12.2-16.2); Lymphocytes # 3.5 K/mm3 (0.7-4.5); Lymphocytes % 31.4 % (10-50); Mean Corpuscular HGB Conc 34.9 g/dL (31.8-35.4); Mean Corpuscular Hemoglobin 32.1 pg (27.0-31.2); Mean Corpuscular Volume 91.9 fl (81-99); Mean Platelet Volume 8.5 fl (7.4-10.4); Monocytes # 0.6 K/mm3 (0.1-1.0); Monocytes % 5.4 % (1.7-9.3); Neutrophils # 6.3 K/mm3 (1.8-7.8); Neutrophils % 56.3 % (37.0-80.0); Platelet Count 399 K/mm3 (142-424); Red Blood Count 4.46 M/mm3 (4.20-5.40); Red Cell Distribution Width 13.4 % (11.5-17.5); White Blood Count 11.2 K/mm3 (4.8-10.8)
[2023-03-02 14:15] LABS: Alanine Aminotransferase 40 U/L (12-78); Aspartate Amino Transferase 48 U/L (14-36); Blood Urea Nitrogen 18 mg/dl (7-17); Creatinine Clearance Estimated 167 mL/min (50-200); Estimated Glomerular Filt Rate 91 ml/min (>60); GFR (African American) 110 ML/MIN (>60)
[2023-03-02 14:16] LABS: Albumin Level 4.6 g/dl (3.5-5.0); Albumin/Globulin Ratio 1.4 (1.1-1.8); Alkaline Phosphatase 113 U/L (38-126); Anion Gap 13.5 mEq/L (5-15); Bilirubin,Total 0.7 mg/dl (0.2-1.3); Calcium 8.8 mg/dl (8.4-10.2); Carbon Dioxide 26 mmol/L (22.0-30.0); Globulin 3.4 g/dL (1.3-3.2); Glucose 123 mg/dl (74-100); Lipase 66 U/L (23-300)
--- NOTE | 2023-03-02 15:03 | PC.NURSE ---
Rounded on patient; call light within reach of patient
[2023-03-02 15:22] LABS: Lactic Acid 1.1 mmol/L (0.7-2.1)
--- NOTE | 2023-03-02 16:34 | PC.NURSE ---
ROunded on patient. Patient is requesting something for pain. Call light within reach.
--- NOTE | 2023-03-02 16:52 | PC.NURSE ---
Rounded on patient; call light within reach . PO challenged per MD request
== END 2023-03-02 17:40 | disposition home or self-care (01) ==
PROVIDERS: Emergency Provider Emergency Medicine; PCP Nurse Practitioner Family
DX: R10.11 Right upper quadrant pain (principal); N83.201 Unspecified ovarian cyst, right side; F41.9 Anxiety disorder, unspecified; F32.A Depression, unspecified; E28.2 Polycystic ovarian syndrome; E07.9 Disorder of thyroid, unspecified
CPT/HCPCS: 36415; 74177; 80053; 81001; 83605; 83690; 84703; 85025; 96374; 96375; 99284; J0131; Q9967

== ENCOUNTER 2023-03-08 16:46 | Emergency (ER) | payer OTHER, SELFPAY ==
[2023-03-08 17:00] VITALS: BP 141/83; PULSE 122; RESP 18; TEMP 37.9; O2SAT 97; BMI 34.2
--- NOTE | 2023-03-08 17:01 | EXP.UTC ---
Discharge Plan Disposition Patient Disposition: Home, Self-Care Condition: Good Prescriptions Prescriptions: New azithromycin [Zithromax] 250 mg tablet 250 mg PO UD DOSE PK Qty: 6 0RF Rx Instructions: Take two (2) tablets today, then one (1) tablet days #2 thru #5 [id number] [Bromfed DM] 2-30-10 mg/5 mL Syrup 5 ml PO Q6H PRN (Reason: Cough) Qty: 240 0RF No Action metoclopramide HCl [Reglan] 10 mg tablet 10 mg PO QAC Qty: 90 0RF Rx Instructions: administer 30 minutes before meals dicyclomine 10 mg capsule 10 mg PO TIDP PRN (Reason: Abdominal Pain) Referrals Follow up/Referrals: Loi Simpson APRN [Primary Care Provider] - See instructions Activity Restrictions/Add. Instructions Additional Instructions/Restrictions: Drink plenty of fluids. Take tylenol or ibuprofen for pain or fever. Take the medications as directed. Follow up with your regular doctor. GO TO THE ER FOR ANY WORSENING SYMPTOMS Clinical Impressions Clinical Impression: Pharyngitis, Acute viral syndrome Stand Alone Forms Stand Alone Forms: Work/School Release Instructions Patient Instructions: Sore Throat, DI for Pharyngitis/Tonsillopharyngitis -- Adult, DI for Viral Syndrome Discharge ED Provider: Syed Orourke [facility] General Stated complaint: sore throat Time Seen by Provider: 03/08/23 17:01 History of Present Illness Provider Complaint: She states that for the past 2 days she has had sore throat, chills, body aches and low grade fever. Related Data Home Medications Medication Instructions Recorded Confirmed dicyclomine 10 mg capsule 10 mg PO TIDP PRN Abdominal Pain 01/29/23 03/08/23 Previous Rx's Medication Instructions Recorded metoclopramide HCl 10 mg tablet 10 mg PO QAC #90 tabs 02/02/23 (Reglan) azithromycin 250 mg tablet 250 mg PO UD DOSE PK #6 tabs 03/08/23 (Zithromax) vhgngszzfpxsrrq-efbokvfjpvarkod-PI 5 ml PO Q6H PRN Cough #240 mL 03/08/23 2 mg-30 mg-10 mg/5 mL oral syrup (Bromfed DM) Allergies Allergy/AdvReac Type Severity Reaction Status Date / Time amoxicillin [AMOXICILLIN] AdvReac Mild Gastrointestinal Verified 03/08/23 17:15 Upset Penicillins AdvReac Mild Gastrointestinal Verified 03/08/23 17:15 Upset PFSH PFSH Disclaimer: The information contained in this section may have been updated after the patient was seen, as this information can be updated by other users. 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 Acne Anxiety Depression History of anemia History of gastroesophageal reflux (GERD) Insomnia Migraine PCOS (polycystic ovarian syndrome) Pelvic pain Right ovarian cyst Tendinitis of right forearm Thyroid disease Surgical History History of tympanostomy tube placement Family History Other Diabetes Social History Smoking Status: Never smoker second hand exposure: No alcohol intake: never substance use type: denies use current occupational status: other Travel in the last 8 weeks: None household members: family housing: house number of children: 0 current occupational exposures/hazards: No ROS Obtained: Yes All systems reviewed & no additional complaints except as documented Constitutional Constitutional: Reports chills and Reports fever(s) Eyes Eyes: Denies eye discharge ENT Ears, Nose, Mouth, and Throat: Reports as per HPI Cardiovascular Cardiovascular: Denies chest pain Respiratory Respiratory: Denies chest congestion and Reports cough Gastrointestinal Gastrointestingal: Reports nausea; Denies abdominal pain, constipation, cramping, diarrhea or vomiting Musculoskeletal Musculoskeletal: Denies arthralgias Integumentary/Breasts Skin/Breast: Denies rash Neurologic Neurologic: Den
[2023-03-08 17:10] LABS: UTC Strep Screen (Rapid) Negative (Negative)
[2023-03-08 17:55] VITALS: BP 141/83; PULSE 122; RESP 18; TEMP 37.4; O2SAT 97
== END 2023-03-08 17:54 | disposition home or self-care (01) ==
PROVIDERS: Emergency Provider Nurse Practitioner Family; PCP Nurse Practitioner Family
DX: J02.9 Acute pharyngitis, unspecified (principal); R42 Dizziness and giddiness; R50.9 Fever, unspecified; B34.9 Viral infection, unspecified
CPT/HCPCS: 87635; 87880; 99212; 99214; G0463

== ENCOUNTER 2023-04-02 07:46 | Emergency (ER) | payer OTHER, SELFPAY ==
[2023-04-02] VITALS (9 sets, daily range): BP systolic 108–137; BP diastolic 78–95; PULSE 60–97; RESP 18–20; TEMP 36.7–36.8; O2SAT 95–100; BMI 33.0
--- NOTE | 2023-04-02 08:00 | XR_ITS ---
FINAL REPORT CLINICAL HISTORY: chest pain after vomiting COMPARISON: 01/23/2023 FINDINGS: 2 views of the chest were obtained . The heart is normal in size. The mediastinum is within normal limits. The lungs are clear. There is no pneumothorax. Osseous structures are unremarkable. IMPRESSION: No acute cardiopulmonary process. Reviewed, Interpreted and Dictated by Abdi Guerin III, MD Transcribed by Debbie Riggs Authenticated and [facility]
--- NOTE | 2023-04-02 08:11 | HMH.EDGENADL ---
Discharge Plan Disposition Patient Disposition: Home, Self-Care Condition: Good Referrals Follow up/Referrals: Loi Simpson APRN [Primary Care Provider] - See instructions Activity Restrictions/Add. Instructions Additional Instructions/Restrictions: You were evaluated in the emergency department today. Please pick up operator your prescription for Zofran and take as needed for nausea and vomiting. Take Tylenol and ibuprofen at home as needed for pain and fever. Follow-up with your primary care provider for reassessment. Return to the emergency department for new or worsening symptoms. Clinical Impressions Clinical Impression: COVID-19 Stand Alone Forms Stand Alone Forms: Work/School Release Instructions Patient Instructions: DI for COVID-19 (Suspected or Confirmed ) Discharge ED Provider: Milvia Coffey General Adult HPI General Chief complaint: Headache Stated complaint: chest pressure, migraine Time Seen by Provider: 04/02/23 07:49 Mode of Arrival: Ambulatory Source of Information: Patient Limitations: No Limitations Description of Symptoms (Recalled from ER Triage Doc. by RN): pt to ed with multiple complaints. pt states bilat UQ abd pain x4 months, chest presure that started this morning and a headache x2 days. pt states she had one episode of vomiting this morning. History of Present Illness HPI narrative: This patient is a 23-year-old female who is well-known to the emergency department presenting with multiple complaints. Patient states that she has had abdominal pain for several months now in her upper abdomen, and for the last 2 days she has had a migraine. She states that the headache is no different from prior migraines that she has had. It was not sudden in onset, and she has had no neurologic symptoms. She also states that she had 1 episode of emesis this morning, and afterward had some chest pressure. She took Pepto-Bismol without good improvement, prompting her to come to the emergency department. No other concerns noted at this time. On medical record review, patient has been evaluated multiple times over the last several months in the emergency department with concern for abdominal pain. Related Data Allergies Allergy/AdvReac Type Severity Reaction Status Date / Time amoxicillin [AMOXICILLIN] AdvReac Mild Gastrointestinal Verified 03/30/23 13:05 Upset Penicillins AdvReac Mild Gastrointestinal Verified 03/30/23 13:05 Upset PFSH PFS Disclaimer: The information contained in this section may have been updated after the patient was seen, as this information can be updated by other users. 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 Acne Anxiety Depression History of anemia History of gastroesophageal reflux (GERD) Insomnia Migraine PCOS (polycystic ovarian syndrome) Pelvic pain Right ovarian cyst Tendinitis of right forearm Thyroid disease Surgical History History of tympanostomy tube placement Family History Other Diabetes Social History Smoking Status: Never smoker second hand exposure: No alcohol intake: never substance use type: denies use current occupational status: other Travel in the last 8 weeks: None household members: family housing: house number of children: 0 current occupational exposures/hazards: No ROS Obtained: Yes All systems reviewed & no additional complaints except as documented Physical Exam General General appearance: alert and in no apparent distress Head Head exam: atraumatic and normocephalic Eye Eye exam: Present normal appearance, PERRL and EOMI ENT ENT exam: Present normal exam, normal oropharynx, mucous membranes moist and normal external ear exam Neck Neck exam: Present normal inspection, full ROM and trachea midline; Absent ten
--- NOTE | 2023-04-02 08:12 | ECG_ITS ---
APPROVED REPORT Exam: Resting ECG HR:96 bpm ECG Measurements Heart Rate 96 AXES SC 136 P 28 QRSd 82 QRS 42 QT 349 T 28 QTc 402 Conclusion SINUS RHYTHM NONSPECIFIC T-WAVE ABNORMALITY BORDERLINE ECG UNCONFIRMED REPORT Electronically signed by : Dinesh Krishnan MD 04/02/2023 17:35:31
[2023-04-02 08:15] LABS: Influenza A, PCR Not Detected (NotDetected); Influenza B, PCR Not Detected (NotDetected)
[2023-04-02 08:17] LABS: Microscopic, Urine URINE MICROSCOPIC (MICROSCOPIC)
[2023-04-02 08:37] LABS: Appearance,Urine CLEAR (Clear); Bilirubin,Urine Negative (Negative); Blood, Urine 3+ (Negative); Color,Urine YELLOW (Yellow); Glucose,Urine (UA) Negative (Negative); Ketones,Urine Negative (Negative); Leukocyte Esterase,Urine Negative (Negative); Nitrate,Urine Negative (Negative); Protein,Urine Negative (Negative); Urobilinogen,Urine 0.2 EU/dl (0.2)
[2023-04-02 08:43] LABS: Coronavirus 19, PCR Detected (NotDetected)
[2023-04-02 08:51] LABS: Bacteria,Urine Trace /lpf; Squamous Epithelial Cell,Urine Occasional #/hpf (0-5)
[2023-04-02 10:03] LABS: Basophils % 0.6 % (0.1-2.0); Eosinophils # 0.6 K/mm3 (0.0-0.4); Eosinophils % 9.3 % (0.1-12.0); Hematocrit 41.1 % (37.0-47.0); Hemoglobin 13.9 g/dL (12.2-16.2); Lymphocytes # 1.6 K/mm3 (0.7-4.5); Lymphocytes % 27.1 % (10-50); Mean Corpuscular HGB Conc 33.8 g/dL (31.8-35.4); Mean Corpuscular Hemoglobin 31.4 pg (27.0-31.2); Mean Platelet Volume 8.5 fl (7.4-10.4); Monocytes # 0.4 K/mm3 (0.1-1.0); Monocytes % 7.2 % (1.7-9.3); Neutrophils # 3.3 K/mm3 (1.8-7.8); Neutrophils % 55.9 % (37.0-80.0); Platelet Count 306 K/mm3 (142-424); Red Blood Count 4.42 M/mm3 (4.20-5.40); Red Cell Distribution Width 13.4 % (11.5-17.5); White Blood Count 5.9 K/mm3 (4.8-10.8)
[2023-04-02 10:11] LABS: Chloride 106 mmol/L (98-107); Potassium 3.6 mmoL/L (3.5-5.1); Sodium 139 mmol/L (136-145)
--- NOTE | 2023-04-02 10:11 | PC.NURSE ---
Rounded on pt. No needs or complaints voiced at this time. Call light within reach.
[2023-04-02 10:13] LABS: Blood Urea Nitrogen 9 mg/dl (7-17); Creatinine Clearance Estimated 187 mL/min (50-200); Estimated Glomerular Filt Rate 106 ml/min (>60); GFR (African American) 128 ML/MIN (>60)
[2023-04-02 10:14] LABS: Lipase 48 U/L (23-300)
[2023-04-02 10:14] LABS: Alanine Aminotransferase 30 U/L (12-78); Albumin Level 4.1 g/dl (3.5-5.0); Albumin/Globulin Ratio 1.4 (1.1-1.8); Alkaline Phosphatase 137 U/L (38-126); Anion Gap 10.6 mEq/L (5-15); Aspartate Amino Transferase 36 U/L (14-36); Bilirubin,Total 0.4 mg/dl (0.2-1.3); Calcium 8.3 mg/dl (8.4-10.2); Carbon Dioxide 26 mmol/L (22.0-30.0); Glucose 92 mg/dl (74-100); Total Protein,Serum 7.1 g/dl (6.3-8.2)
--- NOTE | 2023-04-02 10:16 | PC.NURSE ---
LAB advised less than a minute on chemistry. Dr. Coffey notified.
[2023-04-02 10:50] LABS: HCG Qualitative, Serum Negative (Negative)
== END 2023-04-02 12:26 | disposition home or self-care (01) ==
PROVIDERS: Emergency Provider Emergency Medicine; PCP Nurse Practitioner Family
DX: U07.1 COVID-19 (principal); R10.11 Right upper quadrant pain; R10.12 Left upper quadrant pain; R51.9 Headache, unspecified; F41.9 Anxiety disorder, unspecified; F32.A Depression, unspecified; E07.9 Disorder of thyroid, unspecified
CPT/HCPCS: 71046; 80053; 81001; 83690; 84703; 85025; 87636; 93005; 96361; 96374; 96375; 99285; J0131

== ENCOUNTER 2023-04-05 15:56 | Emergency (ER) | payer OTHER, SELFPAY ==
[2023-04-05 15:57] VITALS: BP 141/98; PULSE 111; RESP 18; TEMP 36.9; O2SAT 97; BMI 33.9
--- NOTE | 2023-04-05 16:17 | PC.NURSE ---
DR RENTERIA AT BEDSIDE
--- NOTE | 2023-04-05 16:20 | XR_ITS ---
PROCEDURE INFORMATION: Exam: XR Chest Exam date and time: 04/05/2023 4:34 PM Age: 23 years old Clinical indication: Dyspnea TECHNIQUE: Imaging protocol: Radiologic exam of the chest. Views: 1 view. COMPARISON: CR XR CHEST 2V 04/02/2023 10:09 AM FINDINGS: Lungs: No evidence of acute airspace consolidation. No pulmonary edema. Pleural spaces: No significant pleural effusion. No pneumothorax. Heart/Mediastinum: Cardiomediastinal silouhette is within normal limits. Bones/joints: No evidence of acute osseous abnormality. Gastrointestinal tract: Moderate gaseous distension of the stomach and a proximal small bowel loop partially visualized in the upper abdomen. IMPRESSION: 1. No evidence of acute cardiopulmonary disease. 2. Moderate gaseous distension of the stomach and a proximal small bowel loop partially visualized in the upper abdomen. Please correlate for clinical indication of potential small bowel obstruction.
--- NOTE | 2023-04-05 16:21 | HMH.EDGENADL ---
Discharge Plan Disposition Patient Disposition: Home, Self-Care Referrals Follow up/Referrals: Loi Simpson APRN [Primary Care Provider] - See instructions Activity Restrictions/Add. Instructions Additional Instructions/Restrictions: No evidence of a cardiopulmonary emergency. Your symptoms are most consistent with pleurisy in the setting of a COVID-19 upper respiratory infection. You may take Tylenol and ibuprofen as needed for your symptoms return with any worsening symptoms. Clinical Impressions Clinical Impression: Pleurisy, COVID-19 Discharge ED Provider: Blaise Celestin General Adult HPI General Chief complaint: Upper Respiratory Infection Stated complaint: covid positive head pressure, chest tightness soa Time Seen by Provider: 04/05/23 16:17 Mode of Arrival: Ambulatory Source of Information: Patient Limitations: No Limitations Description of Symptoms (Recalled from ER Triage Doc. by RN): non-productive cough with chest tightness; achy all-over History of Present Illness HPI narrative: Is a 23-year-old female previously healthy presenting today with chest tightness and chest pressure over the last 24 hours after recent diagnosis of COVID-19. She states that every time she takes a deep breath that it is extensively painful and she feels very tight. Denies any exertional symptoms or any history of reactive airway disease etc. No fevers or chills. She has been taking Tylenol and Zofran without any significant improvement in this pain. She is not on any hormone therapy no history of DVT PE lower extremity swelling hemoptysis etc. Related Data Allergies Allergy/AdvReac Type Severity Reaction Status Date / Time amoxicillin [AMOXICILLIN] AdvReac Mild Gastrointestinal Verified 03/30/23 13:05 Upset Penicillins AdvReac Mild Gastrointestinal Verified 03/30/23 13:05 Upset PFSH PFSH Disclaimer: The information contained in this section may have been updated after the patient was seen, as this information can be updated by other users. 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 Acne Anxiety Depression History of anemia History of gastroesophageal reflux (GERD) Insomnia Migraine PCOS (polycystic ovarian syndrome) Pelvic pain Right ovarian cyst Tendinitis of right forearm Thyroid disease Surgical History History of tympanostomy tube placement Family History Other Diabetes Social History Smoking Status: Never smoker second hand exposure: No alcohol intake: never substance use type: denies use current occupational status: other Travel in the last 8 weeks: None household members: family housing: house number of children: 0 current occupational exposures/hazards: No ROS Obtained: Yes All systems reviewed & no additional complaints except as documented Physical Exam General General appearance: alert Chest Chest inspection: Present normal inspection; Absent symmetric chest wall rise or tenderness Respiratory Respiratory exam: Present normal lung sounds bilaterally; Absent respiratory distress, wheezes or stridor Cardiovascular Cardiovascular exam: Present normal rhythm and tachycardia Neurological Exam Neurological exam: Present alert and oriented X3 Medical Decision Making Kulwant Inquiry Pt receiving controlled substance: No Vital Signs: 04/05/23 15:57 04/05/23 19:30 Temperature 98.5 F Temperature Source Oral Pulse Rate 95 H Pulse Rate [Right] 111 H Respiratory Rate 18 Blood Pressure 109/73 L Blood Pressure [Right Arm] 141/98 H Blood Pressure Mean [Right Arm] 112 02 Sat by Pulse Oximetry 97 97 Oxygen Delivery Method Room Air Lab Data Lab results reviewed: Yes I reviewed the patient's lab results. Lab Results 04/05/23 16:20: WBC 7.1, RBC 5.01, Hgb 15.5
[2023-04-05 16:50] LABS: Basophils # 0.1 K/mm3 (0-0.2); Basophils % 0.8 % (0.1-2.0); Eosinophils # 0.7 K/mm3 (0.0-0.4); Eosinophils % 9.9 % (0.1-12.0); Hematocrit 46.1 % (37.0-47.0); Hemoglobin 15.5 g/dL (12.2-16.2); Lymphocytes % 42.4 % (10-50); Mean Corpuscular HGB Conc 33.7 g/dL (31.8-35.4); Mean Corpuscular Volume 91.9 fl (81-99); Mean Platelet Volume 8.6 fl (7.4-10.4); Monocytes # 0.4 K/mm3 (0.1-1.0); Monocytes % 5.1 % (1.7-9.3); Neutrophils % 41.8 % (37.0-80.0); Platelet Count 394 K/mm3 (142-424); Red Blood Count 5.01 M/mm3 (4.20-5.40); Red Cell Distribution Width 13.2 % (11.5-17.5); White Blood Count 7.1 K/mm3 (4.8-10.8)
[2023-04-05 16:54] LABS: Alanine Aminotransferase 48 U/L (12-78); Albumin Level 4.7 g/dl (3.5-5.0); Albumin/Globulin Ratio 1.2 (1.1-1.8); Alkaline Phosphatase 105 U/L (38-126); Anion Gap 12.7 mEq/L (5-15); Aspartate Amino Transferase 75 U/L (14-36); Bilirubin,Total 0.7 mg/dl (0.2-1.3); Blood Urea Nitrogen 9 mg/dl (7-17); Calcium 8.6 mg/dl (8.4-10.2); Carbon Dioxide 24 mmol/L (22.0-30.0); Chloride 106 mmol/L (98-107); Creatinine Clearance Estimated 191 mL/min (50-200); Estimated Glomerular Filt Rate 106 ml/min (>60); GFR (African American) 128 ML/MIN (>60); Globulin 3.9 g/dL (1.3-3.2); Glucose 118 mg/dl (74-100); Potassium 4.7 mmoL/L (3.5-5.1); Sodium 138 mmol/L (136-145); Total Protein,Serum 8.6 g/dl (6.3-8.2)
[2023-04-05 16:59] LABS: D-Dimer 1.25 ug/mL (0.0-0.5)
[2023-04-05 17:33] LABS: Troponin I < 0.01 ng/ml (0.00-0.034)
--- NOTE | 2023-04-05 17:34 | CT_ITS ---
PROCEDURE INFORMATION: Exam: CTA Chest With Contrast Exam date and time: 04/05/2023 5:57 PM Age: 23 years old Clinical indication: Other: D dimer; Additional info: Pleuritic cp, tachy, covid, dimer 1.25 TECHNIQUE: Imaging protocol: Computed tomographic angiography of the chest with contrast. Exam focused on the arteries. 3D rendering (Not supervised by radiologist): MIP and/or 3D reconstructed images were created by the technologist. Radiation optimization: All CT scans at this facility use at least one of these dose optimization techniques: automated exposure control; mA and/or kV adjustment per patient size (includes targeted exams where dose is matched to clinical indication); or iterative reconstruction. Contrast material: ISOVUE 370; Contrast volume: 70 ml; Contrast route: INTRAVENOUS (IV); REPORTING DATA: Count of CT and Cardiac NM exams in prior 12 months: This patient has received 2 known CTs and 0 known cardiac nuclear medicine studies in the 12 months prior to the current study. COMPARISON: CT ANGIO CHEST PE PROTOCOL 12/19/2021 4:40 PM FINDINGS: Limitations: Suboptimal bolus timing with poor opacification of the pulmonary arteries limits sensitivity for detection of some smaller (subsegmental) pulmonary emboli. Pulmonary arteries: No evidence of pulmonary embolism. Aorta: No aortic aneurysm. Lungs: No evidence of acute airspace disease. No pulmonary edema. Few calcified pulmonary granulomata consistent with chronic sequelae of prior granulomatous disease. Pleural spaces: No pneumothorax. No pleural effusion. Heart: Heart is upper limits of normal in size. No pericardial effusion. Mediastinal space: Layering fluid in the esophagus posing increased risk for aspiration. Lymph nodes: Calcified lymph nodes consistent with chronic sequelae of prior granulomatous disease. Intraperitoneal space: No emergent findings or suspicious mass lesions in the partially visualized upper abdomen. Bones/joints: No acute osseous abnormality. Soft tissues: Unremarkable. IMPRESSION: 1. No evidence of pulmonary embolism, pneumonia, or other acute process in the chest. 2. Layering fluid in the esophagus posing increased risk for aspiration.
--- NOTE | 2023-04-05 17:34 | PC.NURSE ---
DR RENTERIA AT BEDSIDE TO REEVALUATE PT
[2023-04-05 17:45] LABS: HCG Qualitative, Serum Negative (Negative)
--- NOTE | 2023-04-05 17:52 | PC.NURSE ---
PT TO CT
--- NOTE | 2023-04-05 17:52 | PC.NURSE ---
PT GOING TO CT
--- NOTE | 2023-04-05 18:03 | PC.NURSE ---
PT RETURNED FROM CT
[2023-04-05 19:30] VITALS: BP 109/73; PULSE 95; O2SAT 97
--- NOTE | 2023-04-05 20:06 | PC.NURSE ---
in room talking with patient at this time
[2023-04-05 20:09] VITALS: BP 117/77; PULSE 96; RESP 18; TEMP 36.6; O2SAT 98
== END 2023-04-05 20:10 | disposition home or self-care (01) ==
PROVIDERS: Emergency Provider Student in an Organized Health Care Education/Training Program; PCP Nurse Practitioner Family
DX: U07.1 COVID-19 (principal); R09.1 Pleurisy; R07.1 Chest pain on breathing; E07.9 Disorder of thyroid, unspecified; E28.2 Polycystic ovarian syndrome
CPT/HCPCS: 71045; 71275; 80053; 84484; 84703; 85025; 85378; 96361; 96374; 99285; Q9967

== ENCOUNTER 2023-05-03 07:51 | Day surgery (SDC) | payer OTHER, SELFPAY ==
[2023-05-02 11:07] VITALS: BMI 33.4
[2023-05-03] VITALS (7 sets, daily range): BP systolic 116–143; BP diastolic 70–81; PULSE 78–93; RESP 15–19; TEMP 36.1–36.3; O2SAT 95–99
[2023-05-03] MEDS: LACTATED RINGERS 1000ML 1,000 ML 100 ML IV (08:02)
[2023-05-03 08:05] LABS: Urine Pregnancy, HCG Qual. Negative (Negative)
--- NOTE | 2023-05-03 09:05 | P.PNANES_ITS ---
[facility] Disclaimer: The information contained in this section may have been updated after the patient was seen, as this information can be updated by other users. 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 Acne Anxiety Depression History of anemia History of gastroesophageal reflux (GERD) Insomnia Migraine PCOS (polycystic ovarian syndrome) Pelvic pain Right ovarian cyst Tendinitis of right forearm Thyroid disease Surgical History History of tympanostomy tube placement Family History Other Diabetes Social History Smoking Status: Never smoker second hand exposure: No alcohol intake: never substance use type: denies use current occupational status: other Travel in the last 8 weeks: None household members: family housing: house number of children: 0 current occupational exposures/hazards: No caffeine: Yes [facility] Anesthesia Checklist Patient Identification Patient Identification: Arm Band Structural Data Admitted From: Home Planned Operative Procedure/s: EGD Consent for Planned Operative Procedure(s) Verified: Yes Verified Documents: Surgical Consent and History and Physical NPO Status Verified Time NPO: 00:00 Additional verifications Anesthesia Reactions: No Hx Blood Transfusions: No Blood Transfusion Reaction: No Airway Assessment Mallampati Score:: Class II C-Spine Mobility Assessed: Yes TMJ Mobility Assessed: Yes Dentition: Good Dentition Neurological Assessment Level of Consciousness: Awake and Alert Anesthesia Plan Anesthesia Risk discussed: Yes Anesthesia Plan: Verified ASA Class: II Anesthesia Type: MAC
--- NOTE | 2023-05-03 09:13 | HMH.SCOPE ---
Procedure: Date: 05/03/23 Patient Date of :: 2000 Procedure Performed:: EGD & biopsies Indications:: Epigastric pains Performing Provider:: Susie Stephens MD Referring Provider:: Danii Stephens APRN Sedation:: Propofol Procedure:: The gastroscope was gently passed through the incisoral orifice into the oral cavity and under direct visualization the esophagus was intubated. The endoscope was passed down the esophagus, through the stomach, and into the duodenum. Color, texture, mucosa, and anatomy of the esophagus, stomach, and duodenum were carefully examined with the scope. Findings:: Oropharynx: normal Esophagus: normal EG Junction: intact at 40 cm Cardia: normal Fundus: normal Body: normal, biopsies obtained for h.pylori evaluation Antrum: normal Duodenal bulb: normal Duodenum (second and third portion): normal, biopsies obtained for evaluation of celiac disease Impression: Normal EGD Symptoms suggestive of abdominal migraine Specimens:: Gastric and small bowel Recommendations:: Symptomatic therapy with follow up to the GI Clinic Complications:: None Estimated blood obtained (mL): 0 Colonoscopy Component Colonoscopy Component Was a colonoscopy performed during today's procedure?: No
== END 2023-05-03 10:00 | disposition home or self-care (01) ==
PROVIDERS: PCP Nurse Practitioner Family; Visit Provider Internal Medicine Gastroenterology
PROC: 0DJ08ZZ Inspection of Upper Intestinal Tract, Via Natural or Artificial Opening Endoscopic (ICD-10-PCS; CPT 43235; principal; 2023-05-03 09:00)
DX: K29.60 Other gastritis without bleeding (principal); B96.81 Helicobacter pylori [H. pylori] as the cause of diseases classified elsewhere
CPT/HCPCS: 43239; 81025

== ENCOUNTER 2023-06-14 16:45 | Outpatient (CLI) | payer OTHER, SELFPAY ==
[2023-06-15 19:16] LABS: H. pylori Breath Test Negative (Negative)
== END 2023-06-14 23:59 ==
LOC: LAB 16:45
PROVIDERS: PCP Nurse Practitioner Family; Visit Provider Nurse Practitioner
DX: A04.8 Other specified bacterial intestinal infections (principal)
CPT/HCPCS: 83013

== ENCOUNTER 2023-06-15 07:32 | Emergency (ER) | payer OTHER, SELFPAY ==
[2023-06-15] VITALS (8 sets, daily range): BP systolic 109–161; BP diastolic 69–105; PULSE 68–96; RESP 14–16; TEMP 36.6–36.7; O2SAT 99–100; BMI 33.9
--- NOTE | 2023-06-15 07:36 | ED_ITS ---
Discharge Plan Disposition Patient Disposition: Home, Self-Care Condition: Good Prescriptions Prescriptions: New omeprazole 20 mg capsule,delayed release(DR/EC) 20 mg PO DAILY 28 Days Qty: 28 0RF No Action topiramate 25 mg tablet 25 mg PO BID Qty: 60 2RF lansoprazole 30 mg capsule,delayed release(DR/EC) 30 mg PO DAILY Qty: 30 0RF bismuth subsalicylate 525 mg tablet 525 mg PO QID 14 Days Qty: 56 0RF Rx Instructions: do not exceed 8 doses in a 24 hour period ondansetron 8 mg tablet,disintegrating 8 mg PO Q12H PRN (Reason: nausea and vomiting) Qty: 30 0RF amitriptyline 10 mg tablet 10 mg PO HS Qty: 60 1RF Referrals Follow up/Referrals: Susie Stephens MD [Physician] - See instructions (Persistent upper abdominal pain, history of recent H. pylori diagnosis, completed therapy but still has pain) Loi Simpson APRN [Primary Care Provider] - See instructions Activity Restrictions/Add. Instructions Additional Instructions/Restrictions: You were evaluated in the ER for abdominal pain. Take the prescribed omeprazole as directed. Follow-up with GI. Make an appointment with your primary care physician for reevaluation in a few days. Return to the ER with new, worsening, or otherwise concerning symptoms. Clinical Impressions Clinical Impression: Abdominal pain Qualifiers: Abdominal location: upper abdomen, unspecified Qualified Code(s): R10.10 - Upper abdominal pain, unspecified Instructions Patient Instructions: DI for Acute Abdominal Pain Discharge ED Provider: Diamante Jama General Adult HPI General Chief complaint: Abdominal Pain Stated complaint: abd/back pain Time Seen by Provider: 06/15/23 07:36 History of Present Illness HPI narrative: 23-year-old female with a history of IBS, anxiety, depression, GERD, prior ovarian cyst presents to the ER with concerns of abdominal pain and back pain. Patient states she had a diagnosis of H. pylori approximately 1 month ago and completed all medications for it without improvement of her symptoms. She states that her pain is worse after eating. She states she had vomiting this morning, nonbloody, nonbilious. She does endorse intermittent black stools. Patient states she alternates between diarrhea and constipation. She says her pain has been going on for over a year but this morning it was stabbing and worse radiating through to her back which is new for her. She states it extends across her whole upper abdomen but is worse in the center and right side. She has no history of abdominal surgeries. Patient also states she has been having vaginal bleeding for nearly a month. She states she has a history of PCOS so when she does have a period it often is prolonged, however in the last few days her rate of bleeding has increased. She is now changing her pad every 1-2 hours. She denies any pelvic pain, dysuria, or fevers. Related Data Previous Rx's Medication Instructions Recorded amitriptyline 10 mg tablet 10 mg PO HS #60 tabs 05/03/23 bismuth subsalicylate 525 mg tablet 525 mg PO QID 14 days #56 tabs 05/18/23 lansoprazole 30 mg capsule,delayed 30 mg PO DAILY #30 caps 05/18/23 release topiramate 25 mg tablet 25 mg PO BID #60 tabs 05/18/23 ondansetron 8 mg disintegrating 8 mg PO Q12H PRN nausea and 05/29/23 tablet vomiting #30 tabs omeprazole 20 mg capsule,delayed 20 mg PO DAILY 4 weeks #28 caps 06/15/23 release Allergies Allergy/AdvReac Type Severity Reaction Status Date / Time amoxicillin [AMOXICILLIN] AdvReac Mild Gastrointestinal Verified 06/15/23 08:06 Upset Penicillins AdvReac Mild Gastrointestinal Verified 06/15/23 08:06 Upset PFSH PFSH Disclaimer: The information contained in this section may have been updated after the patient was seen, as this information can be updated by other users. 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 Acne Anxiety Depression History of anemia History of gastroesophageal reflux (GERD) Insomnia Migraine PCOS (polycystic ovarian syndrome) Pelvic pain Right ovarian cyst Tendinitis of right forearm Thyroid disease Surgical History History of tympanostomy tube placement Family History Other Diabetes Social History Smoking Status: Never smoker second hand exposure: No alcohol intake: never substance use type: denies use current occupational status: other Travel in the last 8 weeks: None household members: family housing: house number of children: 0 current occupational exposures/hazards: No caffeine: Yes ROS Obtained: Yes All systems reviewed & no additional complaints except as documented Constitutional Constitutional: Denies chills, Denies fever(s), Denies headache(s) and Denies weakness Eyes Eyes: Denies change in vision ENT Ears, Nose, Mouth, and Throat: Denies dizziness, Denies headache(s), Denies nasal congestion and Denies sore throat Cardiovascular Cardiovascular: Denies chest pain, Denies dyspnea and Denies leg edema Respiratory Respiratory: Denies cough and Denies dyspnea Gastrointestinal Gastrointestingal: Reports abdominal pain, diarrhea, melena, nausea and vomiting; Denies constipation Genitourinary Female Genitourinary: Denies dysuria Musculoskeletal Musculoskeletal: Denies arthralgias, Denies myalgias, Denies numbness and Denies tingling Integumentary/Breasts Skin/Breast: Denies change in pigmentation Neurologic Neurologic: Denies dizziness, Denies headache(s), Denies numbness, Denies tingling and Denies weakness Physical Exam General General appearance: alert and in no apparent distress Head Head exam: atraumatic and normocephalic Eye Eye exam: Present PERRL and EOMI ENT ENT exam: Present mucous membranes moist Neck Neck exam: Present normal inspection and full ROM Chest Chest inspection: Present symmetric chest wall rise Respiratory Respiratory exam: Present normal lung sounds bilaterally; Absent respiratory distress or stridor Cardiovascular Cardiovascular exam: Present regular rate and normal rhythm Abdominal Exam Abdominal exam: Present soft and tenderness (Epigastric and right upper quadrant); Absent distention, guarding or rebound Extremities Exam Extremities exam: Present full ROM Back Exam Back exam: Absent CVA tenderness (R) or CVA tenderness (L) Neurological Exam Neurological exam: Present alert and oriented X3; Absent motor sensory deficit Psychiatric Psychiatric exam: Present normal affect and normal mood Skin Skin exam: Present warm and dry Medical Decision Making Medical Records Medical records reviewed: Yes I reviewed the patient's medical records. Kulwant Inquiry Pt receiving controlled substance: No Vital Signs: 06/15/23 07:49 06/15/23 07:41 06/15/23 09:30 Temperature 97.9 F Temperature Source Oral Pulse Rate 88 68 Pulse Rate [Left] 96 H Respiratory Rate 14 Blood Pressure 161/105 H 109/74 L Blood Pressure [Right Arm] 161/105 H Blood Pressure Mean [Right Arm] 123 Blood Pressure Source [Right Arm] Automatic Cuff Blood Pressure Position [Right Arm] Sitting 02 Sat by Pulse Oximetry 99 100 100 Oxygen Delivery Method Room Air Room Air Room Air 06/15/23 09:55 06/15/23 10:00 06/15/23 10:31 Temperature Temperature Source Pulse Rate 71 69 82 Pulse Rate [Left] Respiratory Rate Blood Pressure 126/78 122/84 119/69 Blood Pressure [Right Arm] Blood Pressure Mean [Right Arm] Blood Pressure Source [Right Arm] Blood Pressure Position [Right Arm] 02 Sat by Pulse Oximetry 100 100 100 Oxygen Delivery Method Room Air Room Air Room Air Lab Data Lab Results 06/15/23 07:43: Urine Color Yellow, Urine Appearance Clear, Urine pH 6.5, Ur Specific [place] 1.020, Urine Protein 3+, Urine Glucose (UA) Trace, Urine Ketones 1+, Urine Blood 3+, Urine Nitrate Positive, Urine Bilirubin Negative, Urine Urobilinogen 4.0, Ur Leukocyte Esterase 2+ A, Urine RBC Tntc, Urine WBC 3- 5, Ur Squamous Epith Cells 3-5, Urine Bacteria 1+ 06/15/23 07:51: WBC 7.3, RBC 4.39, Hgb 13.5, Hct 40.5, MCV 92.2, MCH 30.8, MCHC 33.4, RDW 13.8, Plt Count 376, MPV 8.7, Neut % (Auto) 51.4, Lymph % (Auto) 33.9, [place] % (Auto) 5.7, Eos % (Auto) 8.2, Baso % (Auto) 0.7, Neut # (Auto) 3.7, Lymph # (Auto) 2.5, [place] # (Auto) 0.4, Eos # (Auto) 0.6 H, Baso # (Auto) 0.1, Sodium 139, Potassium 4.1, Chloride 109 H, Carbon Dioxide 26, Anion Gap 8.1, BUN 22 H, Creatinine 0.80, Estimated Creat Clear 167, Estimated GFR 91, Est GFR ( Amer) 110, Glucose 103 H, Calcium 8.7, Total Bilirubin 0.5, AST 43 H, ALT 31, Alkaline Phosphatase 111, Total Protein 7.5, Albumin 4.3, Globulin 3.2, Albumin/Globulin Ratio 1.3, Lipase 74, Serum HCG, Qual Negative 06/15/23 09:40: Lactate 1.1 06/15/23 07:51 06/15/23 07:51 Orders (Tests/Meds): ED MEDICATIONS Generic Name Dose Route Start Last Admin Trade Name Freq PRN Reason Stop Dose Admin Sodium Chloride 10 ml 06/15/23 07:43 Sodium Chloride 0.9% 10ml Vial IV 07/15/23 07:42 NEEDED PRN dilute protonix Discontinued Medications Generic Name Dose Route Start Last Admin Trade Name Freq PRN Reason Stop Dose Admin Belladonna Alkaloids 60 ml 06/15/23 07:43 06/15/23 08:00 Belladonna Alkaloids 60 Ml Ml PO 06/15/23 07:44 60 ml ONCE ONE Administration Lactated Ringer's 1,000 mls @ 999 mls/hr 06/15/23 07:43 06/15/23 07:58 Lactated Ringer's 1000 Ml Bag IV 06/15/23 08:43 999 mls/hr .Q1H1M ONE Administration Iopamidol 75 ml 06/15/23 09:10 06/15/23 09:11 Iopamidol-370 (76%);100ml Bottle IV 06/15/23 09:11 75 ml ONCE ONE Administration Ondansetron HCl 4 mg 06/15/23 07:43 06/15/23 08:01 Ondansetron 4mg/2ml Vial IV 06/15/23 07:44 4 mg ONCE ONE Administration Pantoprazole Sodium 40 mg 06/15/23 07:43 06/15/23 08:01 Pantoprazole 40mg Vial IV 06/15/23 07:44 40 mg ONCE ONE Administration Sodium Chloride 10 ml 06/15/23 09:10 06/15/23 09:11 Sodium Chloride 0.9% 10ml Syr (Rad Only) IV 06/15/23 09:11 10 ml ONCE ONE Administration ORDERS Category Date Time Status CT abdomen pelvis w con Stat Cat Scan 06/15/23 07:42 Completed CBC w/Auto Diff [Complete Blood Count Auto Diff] Stat Lab 06/15/23 07:51 Completed CMP [Comprehensive Metabolic Panel] Stat Lab 06/15/23 07:51 Completed Lactic Acid Stat Lab 06/15/23 09:40 Completed Lipase Stat Lab 06/15/23 07:51 Completed Serum [HCG Qualitative, Serum] Stat Lab 06/15/23 07:51 Completed Urinalysis and Microscopic Stat Lab 06/15/23 07:43 Completed Urine Culture Stat Micro 06/15/23 07:43 Received Medical Decision Narrative: In summary, this 23year old female presents to the emergency department today with abdominal pain radiating to the back that has been ongoing for a year but is worse today. On initial evaluation patient is hemodynamically stable, afebrile, physical exam notable for epigastric and right upper quadrant tenderness to palpation without rebound or guarding, nonacute abdomen. Differential diagnosis includes but is not limited to persistent H. pylori as patient has a recent history of this and states her symptoms did not improve after having completed treatment, also considered other etiologies such as pancreatitis, bowel obstruction, cholecystitis, cholelithiasis, GI bleed, urinary tract infection, pyelonephritis, nephrolithiasis, IBS/colitis, given patient has ongoing vaginal bleeding also considered anemia. She does not have pelvic pain so I do not have concerns for ovarian torsion. Based on these concerns, I ordered appropriate labs including lipase and lactic acid, urine georges dies, CT abdomen pelvis. Patient received IV fluids, Protonix, Zofran, GI cocktail for treatment. Labs personally reviewed demonstrate no leukocytosis or anemia, no actionable electrolyte abnormalities, trace prerenal azotemia, patient is receiving IV fluids, mild AST elevation without other transaminitis, UA negative for signs of infection, significant blood in the urine though patient is currently on her menstrual cycle. CT abdomen pelvis personally interpreted demonstrates mild findings of colitis but no upper abdomen pathology on my personal interpretation. See radiology read for final interpretation On reassessment patient remains stable. I have reviewed results with her. I prescribed omeprazole for ongoing symptoms and placed referral to GI. Patient was given instructions on symptomatic management, follow up instructions, and return precautions for the emergency department. Patient indicated understanding and was discharged in stable condition. Critical Care Critical Care Time Critical Care Time: No
--- NOTE | 2023-06-15 07:42 | CT_ITS ---
FINAL REPORT TECHNIQUE: Postcontrast axial images through the abdomen and pelvis were performed. This study was performed with techniques to keep radiation doses as low as reasonably achievable, (ALARA). Individualized dose reduction techniques using automated exposure control or adjustment of mA and/or kV according to the patient's size were employed. CLINICAL HISTORY: abd pain worse with eating, black stool COMPARISON: 03/02/2023 FINDINGS: Abdomen: There are calcified granulomas in the lung bases. The liver is normal in size and attenuation. The spleen is unremarkable. The adrenals are normal. The pancreas is unremarkable. The kidneys enhance appropriately. The aorta is normal in caliber. No free fluid or adenopathy is identified. No findings for mechanical bowel obstruction are identified. Pelvis: The appendix is normal. There is a moderate to large amount of retained stool throughout the colon. There is wall thickening of the distal sigmoid colon with adjacent stranding worrisome for localized colitis. The urinary bladder is unremarkable. No free fluid, free air, abscess or adenopathy is identified. IMPRESSION: Findings worrisome for localized colitis of the distal sigmoid colon. Reviewed, Interpreted and Dictated by Abdi Guerin III, MD Transcribed by Arlette Hall Authenticated and [facility]
[2023-06-15 07:50] LABS: Microscopic, Urine URINE MICROSCOPIC (MICROSCOPIC)
[2023-06-15] MEDS: LACTATED RINGERS 1000ML 1,000 ML 999 ML IV (07:58)
[2023-06-15] MEDS: BELLADONNA ALKALOIDS 60 ML ML PO (08:00)
[2023-06-15] MEDS: PANTOPRAZOLE 40MG VIAL 40 MG IV (08:01)
[2023-06-15] MEDS: ONDANSETRON 4MG/2ML VIAL 4 MG IV (08:01)
[2023-06-15 08:05] LABS: Bilirubin,Urine Negative (Negative); Blood, Urine 3+ (Negative); Glucose,Urine (UA) TRACE (Negative); Ketones,Urine 1+ (Negative); Leukocyte Esterase,Urine 2+ (Negative); Nitrate,Urine POSITIVE (Negative); PH,Urine 6.5 (5.0-8.5); Protein,Urine 3+ (Negative)
[2023-06-15 08:15] LABS: Basophils # 0.1 K/mm3 (0-0.2); Basophils % 0.7 % (0.1-2.0); Eosinophils # 0.6 K/mm3 (0.0-0.4); Eosinophils % 8.2 % (0.1-12.0); Hematocrit 40.5 % (37.0-47.0); Hemoglobin 13.5 g/dL (12.2-16.2); Lymphocytes # 2.5 K/mm3 (0.7-4.5); Lymphocytes % 33.9 % (10-50); Mean Corpuscular HGB Conc 33.4 g/dL (31.8-35.4); Mean Corpuscular Hemoglobin 30.8 pg (27.0-31.2); Mean Corpuscular Volume 92.2 fl (81-99); Mean Platelet Volume 8.7 fl (7.4-10.4); Monocytes # 0.4 K/mm3 (0.1-1.0); Monocytes % 5.7 % (1.7-9.3); Neutrophils # 3.7 K/mm3 (1.8-7.8); Neutrophils % 51.4 % (37.0-80.0); Platelet Count 376 K/mm3 (142-424); Red Blood Count 4.39 M/mm3 (4.20-5.40); Red Cell Distribution Width 13.8 % (11.5-17.5); White Blood Count 7.3 K/mm3 (4.8-10.8)
[2023-06-15 08:18] LABS: Chloride 109 mmol/L (98-107); Potassium 4.1 mmoL/L (3.5-5.1); Sodium 139 mmol/L (136-145)
[2023-06-15 08:20] LABS: Blood Urea Nitrogen 22 mg/dl (7-17); Creatinine Clearance Estimated 167 mL/min (50-200); Estimated Glomerular Filt Rate 91 ml/min (>60); GFR (African American) 110 ML/MIN (>60)
[2023-06-15 08:21] LABS: Alanine Aminotransferase 31 U/L (12-78); Albumin Level 4.3 g/dl (3.5-5.0); Albumin/Globulin Ratio 1.3 (1.1-1.8); Alkaline Phosphatase 111 U/L (38-126); Anion Gap 8.1 mEq/L (5-15); Aspartate Amino Transferase 43 U/L (14-36); Bilirubin,Total 0.5 mg/dl (0.2-1.3); Calcium 8.7 mg/dl (8.4-10.2); Carbon Dioxide 26 mmol/L (22.0-30.0); Globulin 3.2 g/dL (1.3-3.2); Glucose 103 mg/dl (74-100); Lipase 74 U/L (23-300); Total Protein,Serum 7.5 g/dl (6.3-8.2)
[2023-06-15 08:25] LABS: HCG Qualitative, Serum Negative (Negative)
[2023-06-15 08:36] LABS: RBC,Urine TNTC #/hpf (0-3)
[2023-06-15 08:38] LABS: Bacteria,Urine 1+ /lpf
--- NOTE | 2023-06-15 08:51 | PC.NURSE ---
pt going to ct
[2023-06-15] MEDS: SODIUM CHLORIDE 0.9% 10ML SYR (RAD ONLY) 10 ML IV (09:11)
[2023-06-15] MEDS: IOPAMIDOL-370 (76%);100ML BOTTLE 75 ML IV (09:11)
--- NOTE | 2023-06-15 09:48 | PC.NURSE ---
pt resting in bed states she is fine and no needs at this time call light at bs
[2023-06-15 09:58] LABS: Lactic Acid 1.1 mmol/L (0.7-2.1)
[2023-06-15 10:42] LABS: Appearance,Urine Cloudy (Clear); Color,Urine Red (Yellow)
== END 2023-06-15 10:56 | disposition home or self-care (01) ==
PROVIDERS: Emergency Provider Emergency Medicine; PCP Nurse Practitioner Family
DX: R10.10 Upper abdominal pain, unspecified (principal); B96.89 Other specified bacterial agents as the cause of diseases classified elsewhere; K21.9 Gastro-esophageal reflux disease without esophagitis
CPT/HCPCS: 74177; 80053; 81001; 83605; 83690; 84703; 85025; 87086; 96361; 96374; 96375; 99285; J2405; Q9967

== ENCOUNTER 2023-06-19 10:37 | Emergency (ER) | payer OTHER, SELFPAY ==
[2023-06-19] VITALS (7 sets, daily range): BP systolic 107–155; BP diastolic 68–98; PULSE 73–100; RESP 16–20; TEMP 36.7–36.8; O2SAT 97–99; BMI 33.9
[2023-06-19] MEDS: diphenhydrAMINE 50MG/ML VIAL 25 MG IV (11:02)
[2023-06-19] MEDS: ACETAMINOPHEN 1,000MG/100ML VIAL 1000 MG IV (11:02)
[2023-06-19] MEDS: PROCHLORPERAZINE 10MG/2ML VIAL 10 MG IV (11:03)
[2023-06-19] MEDS: LACTATED RINGERS 1000ML 1,000 ML 999 ML IV (11:03)
--- NOTE | 2023-06-19 11:18 | HMH.EDGENADL ---
Discharge Plan Disposition Patient Disposition: Home, Self-Care Chief Complaint: Abdominal Pain Prescriptions Prescriptions: No Action topiramate 25 mg tablet 25 mg PO BID Qty: 60 2RF lansoprazole 30 mg capsule,delayed release(DR/EC) 30 mg PO DAILY Qty: 30 0RF bismuth subsalicylate 525 mg tablet 525 mg PO QID 14 Days Qty: 56 0RF Rx Instructions: do not exceed 8 doses in a 24 hour period ondansetron 8 mg tablet,disintegrating 8 mg PO Q12H PRN (Reason: nausea and vomiting) Qty: 30 0RF amitriptyline 10 mg tablet 10 mg PO HS Qty: 60 1RF omeprazole 20 mg capsule,delayed release(DR/EC) 20 mg PO DAILY 28 Days Qty: 28 0RF Referrals Follow up/Referrals: Loi Simpson APRN [Primary Care Provider] - See instructions Activity Restrictions/Add. Instructions Additional Instructions/Restrictions: Call your family doctor to establish care for this visit to the emergency department and schedule follow-up within 48 hours to ensure improvement. If you have any worsening of your condition or any other concerning signs or symptoms, return to the emergency department or your primary care doctor for further evaluation. Follow-up with your family practitioner regarding migraine abortive medications. Clinical Impressions Clinical Impression: Abdominal pain Qualifiers: Abdominal location: generalized Qualified Code(s): R10.84 - Generalized abdominal pain Migraine Qualifiers: Migraine type: unspecified Status migrainosus presence: with status migrainosus Intractability: not intractable Qualified Code(s): G43.901 - Migraine, unspecified, not intractable, with status migrainosus Instructions Patient Instructions: DI for Acute Abdominal Pain Discharge ED Provider: Glenn Ro General Adult HPI General Chief complaint: Abdominal Pain Stated complaint: weakness Time Seen by Provider: 06/19/23 10:42 Mode of Arrival: Ambulatory Source of Information: Patient Limitations: No Limitations Description of Symptoms (Recalled from ER Triage Doc. by RN): abd pain and headache History of Present Illness HPI narrative: 23-year-old female history of chronic abdominal pain, recent history of H. pylori, depression, anxiety, migraines, abdominal migraines, PCOS, illness anxiety disorder presenting with abdominal pain and headache. Patient states that she was seen in the emergency department couple days prior to this visit. Was diagnosed with colitis. She has been having diarrhea this nonbloody and nausea/vomiting is nonbloody. Abdominal pain is diffuse, cramping, does not radiate. No fevers or chills. She states she is having urinary symptoms including dysuria and frequency/urgency. Headache is frontal, intermittent, does not radiate, associated with intermittent blurry vision when intensity peaks, no vision changes in the drops of pain. No current vision changes, neurologic deficits. Related Data Previous Rx's Medication Instructions Recorded amitriptyline 10 mg tablet 10 mg PO HS #60 tabs 05/03/23 bismuth subsalicylate 525 mg tablet 525 mg PO QID 14 days #56 tabs 05/18/23 lansoprazole 30 mg capsule,delayed 30 mg PO DAILY #30 caps 05/18/23 release topiramate 25 mg tablet 25 mg PO BID #60 tabs 05/18/23 ondansetron 8 mg disintegrating 8 mg PO Q12H PRN nausea and 05/29/23 tablet vomiting #30 tabs omeprazole 20 mg capsule,delayed 20 mg PO DAILY 4 weeks #28 caps 06/15/23 release Allergies Allergy/AdvReac Type Severity Reaction Status Date / Time amoxicillin [AMOXICILLIN] AdvReac Mild Gastrointestinal Verified 06/15/23 08:06 Upset Penicillins AdvReac Mild Gastrointestinal Verified 06/15/23 08:06 Upset PFSH PFSH Disclaimer: The information contained in this section may have been updated after the patient was seen, as this information can be updated by other users. 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 Acne Anxiety Depression History of anemia History of gastroesophageal reflux (GERD) Insomnia Migraine PCOS (polycystic ovarian syndrome) Pelvic pain Right ovarian cyst Tendinitis of right forearm Thyroid disease Surgical History History of tympanostomy tube placement Family History Other Diabetes Social History Smoking Status: Never smoker second hand exposure: No alcohol intake: never substance use type: denies use current occupational status: other Travel in the last 8 weeks: None household members: family housing: house number of children: 0 current occupational exposures/hazards: No caffeine: Yes ROS Obtained: Yes All systems reviewed & no additional complaints except as documented Physical Exam General General appearance: alert and in no apparent distress Head Head exam: atraumatic and normocephalic Eye Eye exam: Present normal appearance, PERRL and EOMI ENT ENT exam: Present mucous membranes moist Neck Neck exam: Present normal inspection, full ROM and trachea midline Respiratory Respiratory exam: Present normal lung sounds bilaterally; Absent respiratory distress, wheezes, stridor, accessory muscle use or prolonged expiratory phase Cardiovascular Cardiovascular exam: Present regular rate and normal rhythm Abdominal Exam Abdominal exam: Present soft; Absent distention, tenderness (No tenderness elicited,), guarding, rebound or rigidity Extremities Exam Extremities exam: Absent edema Back Exam Back exam: Absent CVA tenderness (R) or CVA tenderness (L) Neurological Exam Neurological exam: Present alert, oriented X3, CN II-XII intact and normal gait; Absent motor sensory deficit Skin Skin exam: Present warm and dry; Absent diaphoresis or erythema Medical Decision Making Medical Records Medical records reviewed: Yes I reviewed the patient's medical records. Kulwant Inquiry Pt receiving controlled substance: No Kulwant was queried for this patient: No Vital Signs: 06/19/23 10:41 06/19/23 11:31 06/19/23 12:00 Temperature 98.2 F Temperature Source Oral Pulse Rate 84 84 Pulse Rate [Right Radial] 100 H Respiratory Rate 20 20 20 Blood Pressure 111/75 107/75 L Blood Pressure [Right Arm] 155/98 H Blood Pressure Mean 87 82 Blood Pressure Mean [Right Arm] 117 02 Sat by Pulse Oximetry 97 97 97 Oxygen Delivery Method Room Air 06/19/23 12:30 06/19/23 13:00 06/19/23 13:30 Temperature Temperature Source Pulse Rate 87 73 91 H Pulse Rate [Right Radial] Respiratory Rate 16 16 20 Blood Pressure 131/84 121/68 116/80 Blood Pressure [Right Arm] Blood Pressure Mean 92 89 88 Blood Pressure Mean [Right Arm] 02 Sat by Pulse Oximetry 97 98 99 Oxygen Delivery Method Lab Data Lab Results 06/19/23 10:56: WBC 8.1, RBC 4.56, Hgb 13.8, Hct 41.7, MCV 91.5, MCH 30.3, MCHC 33.1, RDW 13.6, Plt Count 433 H, MPV 8.9, Neut % (Auto) 49.1, Lymph % (Auto) 36.7, [place] % (Auto) 5.1, Eos % (Auto) 8.4, Baso % (Auto) 0.6, Neut # (Auto) 4.0, Lymph # (Auto) 3.0, [place] # (Auto) 0.4, Eos # (Auto) 0.7 H, Baso # (Auto) 0.1, Sodium 139, Potassium 4.6, Chloride 106, Carbon Dioxide 27, Anion Gap 10.6, BUN 18 H, Creatinine 0.70, Estimated Creat Clear 191, Estimated GFR 106, Est GFR ( Amer) 128, Glucose 94, Lactate 1.3, Calcium 9.4, Total Bilirubin 0.6, AST 50 H, ALT 38, Alkaline Phosphatase 120, Total Protein 8.1, Albumin 4.5, Globulin 3.6 H, Albumin/Globulin Ratio 1.3, Lipase 75, HCG, Quant < 2 06/19/23 11:30: Urine Color Yellow, Urine Appearance Clear, Urine pH 6.0, Ur Specific Minier 1.025, Urine Protein Negative, Urine Glucose (UA) Negative, Urine Ketones Negative, Urine Blood 2+, Urine Nitrate Negative, Urine Bilirubin Negative, Urine Urobilinogen 0.2, Ur Leukocyte Esterase Negative, Urine RBC Occasional, Urine WBC 3-5, Ur Squamous Epith Cells 10-20, Urine Bacteria 1+ 06/19/23 10:56 06/19/23 10:56 Orders (Tests/Meds): ED MEDICATIONS Discontinued Medications Generic Name Dose Route Start Last Admin Trade Name Dereckq PRN Reason Stop Dose Admin Acetaminophen 1,000 mg 06/19/23 10:53 06/19/23 11:02 Acetaminophen 1,000mg/100ml Vial IV 06/19/23 10:54 1,000 mg ONCE ONE Administration Diphenhydramine HCl 25 mg 06/19/23 10:53 06/19/23 11:02 Diphenhydramine 50mg/Ml Vial IV 06/19/23 10:54 25 mg ONCE ONE Administration Lactated Ringer's 1,000 mls @ 999 mls/hr 06/19/23 10:54 06/19/23 11:03 Lactated Ringer's 1000 Ml Bag IV 06/19/23 11:54 999 mls/hr .Q1H1M ONE Administration Prochlorperazine Edisylate 10 mg 06/19/23 10:53 06/19/23 11:03 Prochlorperazine 10mg/2ml Vial IV 06/19/23 10:54 10 mg ONCE ONE Administration ORDERS Category Date Time Status CBC w/Auto Diff [Complete Blood Count Auto Diff] Stat Lab 06/19/23 10:56 Completed CMP [Comprehensive Metabolic Panel] Stat Lab 06/19/23 10:56 Completed Diarrhea 6-11 Panel, Cdiff PCR Stat Lab 06/19/23 10:54 Ordered HCG,Quantitative Stat Lab 06/19/23 10:56 Completed Lactic Acid Stat Lab 06/19/23 10:56 Completed Lipase Stat Lab 06/19/23 10:56 Completed UA [Urinalysis and Microscopic] Stat Lab 06/19/23 11:30 Completed Medical Decision Narrative: 23-year-old female history of chronic abdominal pain, recent history of H. pylori, depression, anxiety, migraines, abdominal migraines, PCOS, illness anxiety disorder presenting with abdominal pain and headache. Patient states that she was seen in the emergency department couple days prior to this visit. Was diagnosed with colitis. She has been having diarrhea this nonbloody and nausea/vomiting is nonbloody. Abdominal pain is diffuse, cramping, does not radiate. It has been crescendo/decrescendo in nature over the past couple of days. No fevers or chills. She states she is having urinary symptoms including dysuria and frequency/urgency. Headache is frontal, intermittent, does not radiate, associated with intermittent blurry vision when intensity peaks, no vision changes in the drops of pain. No current vision changes, neurologic deficits. It should be noted that patient has chronic abdominal pain, illness anxiety disorder and these are likely complicating care. History was obtained via conversation with patient. On arrival, patient hemodynamically stable, alert, oriented x4, appropriate, GCS 15, moving all extremities spontaneously, pupils equal and reactive to light. Full physical exam performed and significant for soft abdomen without evidence of tenderness. No evidence of peritonitis. No overlying skin changes, no flank tenderness. Cardiopulmonary exam within normal limits. Differential includes PUD, gastritis, enteritis, gastroenteritis, pancreatitis, SBO, colitis, diverticulitis, nephrolithiasis, UTI, , cholecystitis, appendicitis, hepatitis, torsion, aortic pathology, mesenteric ischemia among others Patient was given Tylenol, Benadryl, LR bolus, Compazine for symptomatic management and correction of underlying abnormalities. Toradol was considered for abdominal pain, but withheld in the setting of probable peptic ulcer disease with recent H. pylori Workup independently interpreted and nonactionable CBC or chemistry. Lipase negative, negative, urinalysis nonconcerning for UTI. CT abdomen pelvis was considered, but deemed unnecessary. Patient had an abdominal CT just a couple days prior to this visit and I independently interpreted. Was normal overall. Radiology called concern for colitis, I think this is reasonable given colonic thickening and patient's history of diarrhea. Patient is not an extremis extremis with incredibly benign abdominal exam at this time, so CT scan was deemed inappropriate. On reevaluation, patient feeling much better. Abdominal pain and headache are resolved. Conversation was had with patient regarding home-going and following up with her family doctor regarding migraine abortive medications. She is agreeable to this plan. Because patient at baseline without signs or symptoms of clinical decompensation, deemed appropriate for discharge. Results were relayed to patient who voiced understanding and were agreeable to outpatient management and follow up. At the time of discharge the patient was hemodynamically stable, tolerating PO, and mobilizing appropriately. Critical Care Critical Care Time Critical Care Time: No
[2023-06-19 11:23] LABS: Basophils # 0.1 K/mm3 (0-0.2); Basophils % 0.6 % (0.1-2.0); Eosinophils # 0.7 K/mm3 (0.0-0.4); Eosinophils % 8.4 % (0.1-12.0); Hematocrit 41.7 % (37.0-47.0); Hemoglobin 13.8 g/dL (12.2-16.2); Lymphocytes % 36.7 % (10-50); Mean Corpuscular HGB Conc 33.1 g/dL (31.8-35.4); Mean Corpuscular Hemoglobin 30.3 pg (27.0-31.2); Mean Corpuscular Volume 91.5 fl (81-99); Mean Platelet Volume 8.9 fl (7.4-10.4); Monocytes # 0.4 K/mm3 (0.1-1.0); Monocytes % 5.1 % (1.7-9.3); Neutrophils % 49.1 % (37.0-80.0); Platelet Count 433 K/mm3 (142-424); Red Blood Count 4.56 M/mm3 (4.20-5.40); Red Cell Distribution Width 13.6 % (11.5-17.5); White Blood Count 8.1 K/mm3 (4.8-10.8)
[2023-06-19 11:24] LABS: Chloride 106 mmol/L (98-107); Potassium 4.6 mmoL/L (3.5-5.1); Sodium 139 mmol/L (136-145)
[2023-06-19 11:26] LABS: Alanine Aminotransferase 38 U/L (12-78); Alkaline Phosphatase 120 U/L (38-126); Anion Gap 10.6 mEq/L (5-15); Aspartate Amino Transferase 50 U/L (14-36); Bilirubin,Total 0.6 mg/dl (0.2-1.3); Blood Urea Nitrogen 18 mg/dl (7-17); Carbon Dioxide 27 mmol/L (22.0-30.0); Creatinine Clearance Estimated 191 mL/min (50-200); Estimated Glomerular Filt Rate 106 ml/min (>60); GFR (African American) 128 ML/MIN (>60); Lipase 75 U/L (23-300)
[2023-06-19 11:27] LABS: Albumin Level 4.5 g/dl (3.5-5.0); Albumin/Globulin Ratio 1.3 (1.1-1.8); Calcium 9.4 mg/dl (8.4-10.2); Globulin 3.6 g/dL (1.3-3.2); Glucose 94 mg/dl (74-100); Lactic Acid 1.3 mmol/L (0.7-2.1); Total Protein,Serum 8.1 g/dl (6.3-8.2)
--- NOTE | 2023-06-19 11:27 | PC.NURSE ---
Rounded on patient. Medications given and blanket provided. No other needs at this time.
--- NOTE | 2023-06-19 11:31 | PC.NURSE ---
ROUNDED ON PT, CALL LIGHT WITHIN REACH. NO NEEDS AT THIS TIME
--- NOTE | 2023-06-19 11:31 | PC.NURSE ---
URINE SENT TO LAB. PT ASLEEP IN ROOM
[2023-06-19 11:40] LABS: Microscopic, Urine URINE MICROSCOPIC (MICROSCOPIC)
[2023-06-19 11:43] LABS: HCG,Quantitative < 2 mIU/ml (0-5.42)
[2023-06-19 11:46] LABS: Appearance,Urine CLEAR (Clear); Bilirubin,Urine Negative (Negative); Blood, Urine 2+ (Negative); Color,Urine YELLOW (Yellow); Glucose,Urine (UA) Negative (Negative); Ketones,Urine Negative (Negative); Leukocyte Esterase,Urine Negative (Negative); Nitrate,Urine Negative (Negative); Protein,Urine Negative (Negative); Specific Gravity, Urine 1.025 (1.005-1.030); Urobilinogen,Urine 0.2 EU/dl (0.2)
[2023-06-19 12:29] LABS: Bacteria,Urine 1+ /lpf
[2023-06-19 12:31] LABS: RBC,Urine Occasional #/hpf (0-3)
--- NOTE | 2023-06-19 12:37 | PC.NURSE ---
Rounded on patient. Water provided.
--- NOTE | 2023-06-19 13:06 | PC.NURSE ---
PT AMBULATED UP TO BR
== END 2023-06-19 13:53 | disposition home or self-care (01) ==
PROVIDERS: Emergency Provider Emergency Medicine; PCP Nurse Practitioner Family
DX: R10.84 Generalized abdominal pain (principal); G43.901 Migraine, unspecified, not intractable, with status migrainosus; E28.2 Polycystic ovarian syndrome; E07.9 Disorder of thyroid, unspecified
CPT/HCPCS: 80053; 81001; 83605; 83690; 84702; 85025; 96361; 96374; 96375; 99285; J0131

== ENCOUNTER 2023-07-09 16:43 | Emergency (ER) | payer OTHER, SELFPAY ==
[2023-07-09 17:10] VITALS: BP 112/86; PULSE 101; RESP 21; TEMP 36.7; O2SAT 99; BMI 33.8
--- NOTE | 2023-07-09 17:40 | EXP.UTC ---
Discharge Plan Disposition Patient Disposition: Home, Self-Care Condition: Good Prescriptions Prescriptions: New nitrofurantoin monohyd/m-cryst [Macrobid] 100 mg capsule 100 mg PO Q12H 5 Days Qty: 10 0RF Rx Instructions: must administer with a meal/food ibuprofen 600 mg tablet 600 mg PO Q6HP PRN (Reason: Moderate Pain) Qty: 20 0RF No Action Christina 14 mcg/24 hrs (3 yrs) 13.5 mg intrauterine device 1 device intrauterine ONCE topiramate 25 mg tablet 25 mg PO BID Qty: 60 2RF Referrals Follow up/Referrals: Loi Simpson APRN [Primary Care Provider] - See instructions Activity Restrictions/Add. Instructions Additional Instructions/Restrictions: Call OBGYN office in the morning as discussed if you are still having symptoms Take medication as prescribed Follow up with your Family Doctor if needed Straight to ER if any life threatening symptoms Clinical Impressions Clinical Impression: UTI (urinary tract infection) Qualifiers: Urinary tract infection type: site unspecified Hematuria presence: with hematuria Qualified Code(s): N39.0 - Urinary tract infection, site not specified Instructions Patient Instructions: DI for Urinary Tract Infection (UTI), DI for Intrauterine Device Insertion Discharge ED Provider: Rosa Purcell [facility] General Stated complaint: Problems with IUD sent by A [facility] Mode of Arrival: Ambulatory Source of Information: Patient Limitations: No Limitations Time Seen by Provider: 07/09/23 17:40 Description of Symptoms (Recalled from Triage Doc. by RN): PATIENT C/O PELVIC PAIN, HEADACHE, EAR ACHE, DRY EYES, NAUSEA, BODY ACHES, AND FEVER THAT STARTED AFTER GETTING AN IUD PLACED LAST SUNDAY HEENT Symptoms (Recalled from RN notes): Yes Resp Symptoms (Recalled from RN notes): No Skin Symptoms (Recalled from RN notes): No MS Symptoms (Recalled from RN notes): No Functional Status (Recalled from RN notes): WNL History of Present Illness Provider Complaint: Patient states that she had IUD placed last week in OBGYN office States that for the last couple of days she has been having cramping, on her period at this time, feeling achy, nasal congestion Pain in her ears, body aches, chills and felt like she may have had fever last night States that she called OB office and they told her to come in States that she is not having any fever or chills at this time Related Data Home Medications Medication Instructions Recorded Confirmed levonorgestrel 14 mcg/24 hrs (3 1 device intrauterine ONCE 07/03/23 07/03/23 yrs) 13.5 mg intrauterine device (Christina) Previous Rx's Medication Instructions Recorded topiramate 25 mg tablet 25 mg PO BID #60 tabs 05/18/23 ibuprofen 600 mg tablet 600 mg PO Q6HP PRN Moderate Pain 07/09/23 #20 tabs nitrofurantoin 100 mg PO Q12H 5 days #10 caps 07/09/23 monohydrate/macrocrystals 100 mg capsule (Macrobid) Allergies Allergy/AdvReac Type Severity Reaction Status Date / Time amoxicillin [AMOXICILLIN] AdvReac Mild Gastrointestinal Verified 07/03/23 13:21 Upset Penicillins AdvReac Mild Gastrointestinal Verified 07/03/23 13:21 Upset Worker's Comp Is this a Worker's Comp case?: No [facility] Disclaimer: The information contained in this section may have been updated after the patient was seen, as this information can be updated by other users. 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 (Updated 07/09/23 @ 18:08 by Rosa Purcell APRN) Right ovarian cyst Acne Pelvic pain PCOS (polycystic ovarian syndrome) Thyroid disease History of anemia Depression Anxiety History of gastroesophageal reflux (GERD) Insomnia Migraine Surgical History History of tympanostomy tube placement Family History Other Diabetes Social History Smoking Status: Never smoker second hand exposure: No alcohol intake: never substance use type: denies use current occupational status: other Travel in the last 8 weeks: None household members: family housing: house number of children: 0 current occupational exposures/hazards: No caffeine: Yes ROS Obtained: Yes All systems reviewed & no additional complaints except as documented and Yes Systems reviewed as appropriate & no additional complaints except as documented Constitutional Constitutional: Reports system reviewed and no additional complaints, except as documented, Reports as per HPI, Reports body ache, Reports chills, Reports fever(s) and Reports headache(s) ENT Ears, Nose, Mouth, and Throat: Reports system reviewed and no additional complaints, except as documented, Reports as per HPI, Reports headache(s), Reports nasal congestion, Reports nasal discharge and Reports sore throat Cardiovascular Cardiovascular: Reports system reviewed and no additional complaints, except as documented and Reports as per HPI Respiratory Respiratory: Reports system reviewed and no additional complaints, except as documented, Reports as per HPI and Reports cough Gastrointestinal Gastrointestingal: Reports system reviewed and no additional complaints, except as documented, as per HPI and cramping Genitourinary Female Genitourinary: Reports system reviewed and no additional complaints, except as documented, Reports as per HPI and Reports other Comments: Had IUD placed last week having cramping and some bleeding since Denies vaginal pain Neurologic Neurologic: Reports headache(s) Physical Exam General General appearance: alert and in no apparent distress ENT ENT exam: Present mucous membranes moist Expanded ENT Exam Nose exam: Absent sinus tenderness Throat exam: Present normal inspection Respiratory Respiratory exam: Present normal lung sounds bilaterally; Absent respiratory distress or wheezes Cardiovascular Cardiovascular exam: Present regular rate, normal rhythm and normal heart sounds Abdominal Exam Abdominal exam: Present soft and normal bowel sounds; Absent distention or tenderness Neurological Exam Neurological exam: Present alert, oriented X3 and normal gait Medical Decision Making Kulwant Inquiry Pt receiving controlled substance: No Kulwant was queried for this patient: No Vital Signs: 07/09/23 17:10 Temperature 98.1 F Temperature Source Oral Pulse Rate [Left Brachial] 101 H Respiratory Rate 21 Blood Pressure [Left Arm] 112/86 Blood Pressure Mean [Left Arm] 94 Blood Pressure Source [Left Arm] Automatic Cuff Blood Pressure Position [Left Arm] Sitting 02 Sat by Pulse Oximetry 99 Oxygen Delivery Method Room Air Lab Data Lab results reviewed: Yes I reviewed the patient's lab results. Medical Decision Narrative: Discussed with patient about transfer to the ED due to recent placement of IUD for further evaluation and testing and patient declined not wanting to go to the ED at this time Spoke with OB control operator Dr Keita and informed her of patient complaints and findings patient did agree to start on Antibiotics due to leukocytes in urine and will send urine for culture Patient allergic to Amoxicillin and PCN therefore will start on Macrobid and patient will call office first thing in the morning and see Dr Lizarraga if she is still having symptoms to check IUD patient agreed Again spoke with patient about transfer to the ED for furhter lab work up and imaging and she declined will follow up in in the morning at the clinic
[2023-07-09 17:42] LABS: Apearance,Urine Turbid (Clear); Color,Urine Red (Yellow); Glucose,Urine (UA) Negative (Negative); PH,Urine 5.5 (5.0-8.5); Protein,Urine 1+ (Negative); Specific Gravity, Urine 1.025 (1.005-1.030)
[2023-07-09 17:43] LABS: Bilirubin,Urine Negative (Negative); Blood, Urine 3+ (Negative); Ketones,Urine Negative (Negative); UTC Influenza A Antigen Negative (Negative); UTC Influenza B Antigen Negative (Negative); UTC Leukocyte Esterase,Urine Trace (Negative); UTC Nitrate,Urine Negative (Negative); Urobilinogen,Urine 0.2 EU/dl (0.2)
[2023-07-09 18:11] VITALS: BP 112/86; PULSE 101; RESP 21; TEMP 36.7; O2SAT 99
== END 2023-07-09 18:16 | disposition home or self-care (01) ==
PROVIDERS: Emergency Provider Nurse Practitioner; PCP Nurse Practitioner Family
DX: N39.0 Urinary tract infection, site not specified (principal); R10.2 Pelvic and perineal pain; R51.9 Headache, unspecified; H92.09 Otalgia, unspecified ear; R11.0 Nausea; R50.9 Fever, unspecified; E28.2 Polycystic ovarian syndrome; E07.9 Disorder of thyroid, unspecified; F32.A Depression, unspecified; F41.9 Anxiety disorder, unspecified
CPT/HCPCS: 81003; 87086; 87804; 99212; 99214; G0463

== ENCOUNTER 2023-07-24 12:54 | Outpatient (CLI) | payer OTHER, SELFPAY ==
--- NOTE | 2023-07-24 13:01 | US_ITS ---
PROCEDURE: US TRANSVAGINAL CLINICAL INDICATION: Pelvic Pain, Ovarian Cyst and check IUD Placement COMPARISON: No exams were available for comparison FINDINGS: Transvaginal sonographic images of the pelvis were obtained. UTERUS: 6.4cm x 5.3cmx 3.6 cm anteverted with a combined endometrial thickness of 8.3mm. An IUD is in the endometrial cavity in the correct position. LEFT OVARY: 1.5 cmx1.3cmx1.0cm with a volume of 1ml. The left ovary sits posterior to the uterus. RIGHT OVARY: 4.9 cmx 2.3 cmx2.5cm There is a follicle in the right ovary measuring 2.8 cm x 2.6 cm x 2.2 cm. Both ovaries are seen and appear normal. Doppler flow to both ovaries are seen. There is no fluid in the cul-de-sac. IMPRESSION: 1. Anteverted uterus normal in shape and size. The endometrium is normal. 2. Within the uterine cavity is an IUD in the correct position. 3. Both ovaries are seen and appear normal. The right ovary has a 2.8 cm follicle. 4. No fluid in the cul-de-sac. Dictated by: Lukasz Rich MD 07/25/2023 08:34 Lukasz Rich MD in OV 07/25/2023 08:34
== END 2023-07-24 23:59 ==
LOC: RAD 12:55
PROVIDERS: PCP Nurse Practitioner Family; Visit Provider Obstetrics & Gynecology
DX: R10.2 Pelvic and perineal pain (principal); N83.201 Unspecified ovarian cyst, right side; Z97.5 Presence of (intrauterine) contraceptive device
CPT/HCPCS: 76830

== ENCOUNTER 2023-08-12 14:49 | Emergency (ER) | payer OTHER, SELFPAY ==
[2023-08-12 15:40] VITALS: BP 128/91; PULSE 79; RESP 18; TEMP 36.8; O2SAT 98; BMI 37.9
--- NOTE | 2023-08-12 16:37 | EXP.UTC ---
Discharge Plan Disposition Patient Disposition: Home, Self-Care Condition: Good Prescriptions Prescriptions: New cefdinir 300 mg capsule 300 mg PO BID Qty: 20 0RF No Action Christina 14 mcg/24 hrs (3 yrs) 13.5 mg intrauterine device 1 device intrauterine ONCE Referrals Follow up/Referrals: Loi Simpson APRN [Primary Care Provider] - See instructions Activity Restrictions/Add. Instructions Additional Instructions/Restrictions: *Monitor Temp, Over the counter Motrin or Tylenol as directed/as needed Tylenol every 4 hours and Motrin every 6 hours (as long as your family doctor has told you that you can take it) for fever or pain. and straight to ER if unable to lower temp less than 101.0 after medication given *Warm salt water gargles may help to soothe the throat *Throat Lozenges? *Warm fluids like tea with honey may help to soothe the throat? *Sleep elevated *Humidifier/Vaporizer Take medication as prescribed Follow up IMMEDIATELY for new or worsening symptoms or no Noticeable improvement over the next 48-72 hours. 911 for difficulty breathing or swallowing Clinical Impressions Clinical Impression: Otitis media Instructions Patient Instructions: Middle Ear Infection, Cefdinir Discharge ED Provider: Rosa Purcell [facility] General Stated complaint: left ear pain Mode of Arrival: Ambulatory Source of Information: Patient Limitations: No Limitations Time Seen by Provider: 08/12/23 16:37 Description of Symptoms (Recalled from Triage Doc. by RN): PATIENT C/O BILATERAL EAR ACHE FOR OVER A WEEK, IRRITATED EYES, COUGH, AND HEADACHE HEENT Symptoms (Recalled from RN notes): Yes Resp Symptoms (Recalled from RN notes): Yes Skin Symptoms (Recalled from RN notes): No MS Symptoms (Recalled from RN notes): No Functional Status (Recalled from RN notes): WNL History of Present Illness Provider Complaint: Patient states that for over a week she has been having bilateral ear pain, cough and headache States today her left ear is hurting worse so she came in to get checked Related Data Home Medications Medication Instructions Recorded Confirmed levonorgestrel 14 mcg/24 hrs (3 1 device intrauterine ONCE 07/03/23 08/07/23 yrs) 13.5 mg intrauterine device (Chirstina) Previous Rx's Medication Instructions Recorded cefdinir 300 mg capsule 300 mg PO BID #20 caps 08/12/23 Allergies Allergy/AdvReac Type Severity Reaction Status Date / Time amoxicillin [AMOXICILLIN] AdvReac Mild Gastrointestinal Verified 08/07/23 13:11 Upset Penicillins AdvReac Mild Gastrointestinal Verified 08/07/23 13:11 Upset Worker's Comp Is this a Worker's Comp case?: No [facility] Disclaimer: The information contained in this section may have been updated after the patient was seen, as this information can be updated by other users. 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 Right ovarian cyst Acne Pelvic pain PCOS (polycystic ovarian syndrome) Thyroid disease History of anemia Depression Anxiety History of gastroesophageal reflux (GERD) Insomnia Migraine Surgical History History of tympanostomy tube placement Family History Other Diabetes Social History Smoking Status: Never smoker second hand exposure: No alcohol intake: never substance use type: denies use current occupational status: other Travel in the last 8 weeks: None household members: family housing: house number of children: 0 current occupational exposures/hazards: No caffeine: Yes ROS Obtained: Yes All systems reviewed & no additional complaints except as documented and Yes Systems reviewed as appropriate & no additional complaints except as documented Constitutional Constitutional: Reports system reviewed and no additional complaints, except as documented and Reports as per HPI ENT Ears, Nose, Mouth, and Throat: Reports system reviewed and no additional complaints, except as documented, Reports as per HPI, Reports otalgia, Reports nasal congestion and Reports nasal discharge Cardiovascular Cardiovascular: Reports system reviewed and no additional complaints, except as documented and Reports as per HPI Respiratory Respiratory: Reports system reviewed and no additional complaints, except as documented, Reports as per HPI and Reports cough Gastrointestinal Gastrointestingal: Reports system reviewed and no additional complaints, except as documented and as per HPI Physical Exam General General appearance: alert and in no apparent distress ENT ENT exam: Present mucous membranes moist Expanded ENT Exam TM/Canal exam: Left TM: erythema and bulging Nose exam: Present sinus tenderness Respiratory Respiratory exam: Present normal lung sounds bilaterally; Absent respiratory distress or wheezes Cardiovascular Cardiovascular exam: Present regular rate, normal rhythm and normal heart sounds Neurological Exam Neurological exam: Present alert, oriented X3 and normal gait Medical Decision Making Kluwant Inquiry Pt receiving controlled substance: No Kulwant was queried for this patient: No Vital Signs: 08/12/23 15:40 Temperature 98.2 F Temperature Source Oral Pulse Rate [Left Brachial] 79 Respiratory Rate 18 Blood Pressure [Left Arm] 128/91 H Blood Pressure Mean [Left Arm] 103 Blood Pressure Source [Left Arm] Automatic Cuff Blood Pressure Position [Left Arm] Sitting 02 Sat by Pulse Oximetry 98 Oxygen Delivery Method Room Air Medical Decision Narrative: Patient states that she is allergic to Amoxicillin and Penicillin but has taken Cefdinir in the past without complications or reactions
[2023-08-12 16:45] VITALS: BP 128/91; PULSE 79; RESP 18; TEMP 36.8; O2SAT 98
== END 2023-08-12 16:50 | disposition home or self-care (01) ==
PROVIDERS: Emergency Provider Nurse Practitioner; PCP Nurse Practitioner Family
DX: H66.92 Otitis media, unspecified, left ear (principal); R05.9 Cough, unspecified; R51.9 Headache, unspecified
CPT/HCPCS: 99212; 99214; G0463

== ENCOUNTER 2023-08-28 18:00 | Outpatient (CLI) | payer OTHER, SELFPAY ==
[2023-08-28 18:54] LABS: Basophils # 0.1 K/mm3 (0-0.2); Eosinophils # 0.4 K/mm3 (0.0-0.4); Eosinophils % 4.7 % (0.1-12.0); Hematocrit 43.6 % (37.0-47.0); Hemoglobin 14.3 g/dL (12.2-16.2); Lymphocytes # 2.3 K/mm3 (0.7-4.5); Lymphocytes % 25.3 % (10-50); Mean Corpuscular HGB Conc 32.8 g/dL (31.8-35.4); Mean Corpuscular Hemoglobin 30.8 pg (27.0-31.2); Mean Corpuscular Volume 93.8 fl (81-99); Mean Platelet Volume 8.9 fl (7.4-10.4); Monocytes # 0.6 K/mm3 (0.1-1.0); Monocytes % 6.2 % (1.7-9.3); Neutrophils # 5.7 K/mm3 (1.8-7.8); Neutrophils % 62.9 % (37.0-80.0); Platelet Count 400 K/mm3 (142-424); Red Blood Count 4.65 M/mm3 (4.20-5.40); Red Cell Distribution Width 14.1 % (11.5-17.5); White Blood Count 9.1 K/mm3 (4.8-10.8)
[2023-08-28 19:13] LABS: Alanine Aminotransferase 32 U/L (12-78); Albumin Level 4.8 g/dl (3.5-5.0); Albumin/Globulin Ratio 1.7 (1.1-1.8); Alkaline Phosphatase 128 U/L (38-126); Aspartate Amino Transferase 38 U/L (14-36); Bilirubin,Total 0.5 mg/dl (0.2-1.3); Blood Urea Nitrogen 19 mg/dl (7-17); Calcium 9.4 mg/dl (8.4-10.2); Carbon Dioxide 24 mmol/L (22.0-30.0); Chloride 105 mmol/L (98-107); Chol/HDL Ratio 5.2 (1-3.5); Cholesterol 192 mg/dl (140-200); Estimated Glomerular Filt Rate 106 ml/min (>60); GFR (African American) 128 ML/MIN (>60); Globulin 2.9 g/dL (1.3-3.2); Glucose 86 mg/dl (74-100); HDL Cholesterol 37 mg/dl (40-60); Sodium 141 mmol/L (136-145); Total Protein,Serum 7.7 g/dl (6.3-8.2); Triglycerides 316 mg/dl (30-150); VLDL Cholesterol 63 mg/dL (0-40)
[2023-08-28 19:26] LABS: Direct LDL Cholesterol 103.59 mg/dL (100-129)
[2023-08-28 19:35] LABS: 25-OH Vitamin D, Total 29.3 ng/mL (30-100)
[2023-08-28 19:46] LABS: Thyroid Stimulating Hormone 6.98 uIU/mL (0.465-4.68)
[2023-08-28 20:20] LABS: Vitamin B12 511 pg/mL (239-931)
[2023-08-28 20:28] LABS: Folate 5.17 ng/mL
[2023-08-28 22:00] LABS: Iron 63 ug/dL (37-170)
[2023-08-28 22:09] LABS: Total Iron Binding Capacity 392 ug/dL (265-497)
[2023-08-28 22:36] LABS: Ferritin 22.8 ng/ml (6.24-137)
== END 2023-08-28 23:59 | disposition home or self-care (01) ==
LOC: LAB.DROPOF 08-29 10:52
PROVIDERS: PCP Nurse Practitioner Family; Visit Provider Nurse Practitioner Family
DX: E28.2 Polycystic ovarian syndrome (principal); R53.83 Other fatigue; E55.9 Vitamin D deficiency, unspecified; Z68.37 Body mass index [BMI] 37.0-37.9, adult
CPT/HCPCS: 80053; 80061; 82306; 82607; 82728; 82746; 83540; 83550; 84443; 85025

== ENCOUNTER 2023-09-06 08:05 | Emergency (ER) | payer OTHER, SELFPAY ==
[2023-09-06 08:20] VITALS: BP 118/79; PULSE 76; RESP 20; TEMP 36.9; O2SAT 98; BMI 34.7
--- NOTE | 2023-09-06 08:34 | EXP.UTC ---
Discharge Plan Disposition Patient Disposition: Home, Self-Care Condition: Good Prescriptions Prescriptions: New azithromycin [Zithromax] 250 mg tablet 250 mg PO UD DOSE PK Qty: 6 0RF Rx Instructions: Take two (2) tablets today, then one (1) tablet days #2 thru #5 polymyxin B sulf-trimethoprim 10,000 unit- 1 mg/mL drops 1 drp Eye-Left Q3H 7 Days Qty: 10 0RF Rx Instructions: while awake; do not exceed 6 doses in 24 hours methylprednisolone 4 mg Tablets,Dose Pack 4 mg PO DIRECTED 6 Days Qty: 21 0RF Rx Instructions: Take 1 pack as directed for 6 days [id number] [Bromfed DM] 2-30-10 mg/5 mL Syrup 5 ml PO Q6H PRN (Reason: Cough) Qty: 240 0RF No Action Christina 14 mcg/24 hrs (3 yrs) 13.5 mg intrauterine device 1 device intrauterine ONCE sumatriptan succinate 50 mg tablet See Rx Instructions PO .COMPLEX Qty: 10 2RF Rx Instructions: take 1 tab at onset of headache; if no relief may repeat 1 tab after at least 2 hrs; max = 4 tabs/24 hr PO Referrals Follow up/Referrals: Loi Simpson APRN [Primary Care Provider] - See instructions Activity Restrictions/Add. Instructions Additional Instructions/Restrictions: Drink plenty of fluids. Take tylenol or ibuprofen for pain or fever. Take the medications as directed. Follow up with your regular doctor. GO TO THE ER FOR ANY WORSENING SYMPTOMS Apply warm wet compresses to your left eye 4 times per day for 5 to 10 minutes each time for the next few days. Clinical Impressions Clinical Impression: Sinusitis, Middle ear infection Stand Alone Forms Stand Alone Forms: Work/School Release Instructions Patient Instructions: How to Instill Eye Drops, Middle Ear Infection, DI for Sinusitis, DI for Hordeolum Discharge ED Provider: Syed Orourke [facility] General Stated complaint: congestion, ear pain, eye puffy Time Seen by Provider: 09/06/23 08:32 History of Present Illness Provider Complaint: She states that for the past 2 days she has had left ear pain, left eye redness and irritation, sinus congestion, and a dry cough. She had similar ear pain a few weeks ago and she was prescribed cefdinir for it then. She states that she got better while she was on the medication, but once she finished it her ear pain came back. She states that her her eye started feeling irritated and the eye lid started swelling yesterday. She denies any eye injury or foreign body. Related Data Home Medications Medication Instructions Recorded Confirmed levonorgestrel 14 mcg/24 hr (up to 1 device intrauterine ONCE 07/03/23 09/06/23 3 yrs) 13.5 mg intrauterine device (Christina) Previous Rx's Medication Instructions Recorded sumatriptan succinate 50 mg tablet See Rx Instructions PO .COMPLEX 08/28/23 #10 tabs azithromycin 250 mg tablet 250 mg PO UD DOSE PK #6 tabs 09/06/23 (Zithromax) [id number] 5 ml PO Q6H PRN Cough #240 mL 09/06/23 2 mg-30 mg-10 mg/5 mL oral syrup (Bromfed DM) methylprednisolone 4 mg tablets in 4 mg PO DIRECTED 6 days #21 tabs 09/06/23 a dose pack polymyxin B sulfate 10,000 1 drp Eye-Left Q3H 7 days #10 mL 09/06/23 unit-trimethoprim 1 mg/mL eye drops Allergies Allergy/AdvReac Type Severity Reaction Status Date / Time amoxicillin [AMOXICILLIN] AdvReac Mild Gastrointestinal Verified 08/28/23 15:21 Upset Penicillins AdvReac Mild Gastrointestinal Verified 08/28/23 15:21 Upset PFSH PFSH Disclaimer: The information contained in this section may have been updated after the patient was seen, as this information can be updated by other users. 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 Right ovarian cyst Acne Pelvic pain PCOS (polycystic ovarian syndrome) Thyroid disease History of anemia Depression Anxiety History of gastroesophageal reflux (GERD) Insomnia Migraine Surgical History History of tympanostomy tube placement Family History Other Diabetes Social History Smoking Status: Never smoker second hand exposure: No alcohol intake: never substance use type: denies use current occupational status: other Travel in the last 8 weeks: None household members: family housing: house number of children: 0 current occupational exposures/hazards: No caffeine: Yes ROS Obtained: Yes All systems reviewed & no additional complaints except as documented Constitutional Constitutional: Denies chills, Reports fever(s) and Reports poor appetite Eyes Eyes: Reports as per HPI, Denies change in vision and Reports eye discharge ENT Ears, Nose, Mouth, and Throat: Denies ear discharge, Reports otalgia, Denies hearing loss, Denies sinus pain and Reports sore throat Cardiovascular Cardiovascular: Denies chest pain and Denies dyspnea Respiratory Respiratory: Denies chest congestion, Reports cough and Denies dyspnea Gastrointestinal Gastrointestingal: Denies abdominal pain, diarrhea, nausea or vomiting Musculoskeletal Musculoskeletal: Denies arthralgias Integumentary/Breasts Skin/Breast: Denies rash Physical Exam General General appearance: alert and in no apparent distress Head Head exam: atraumatic, normocephalic and normal inspection Eye Eye exam: Absent PERRL or EOMI Expanded Eye Exam Eyelids: left: erythema and stye and right: normal inspection Pupils: Left: size (2), Right: size (2) and Bilateral: regular, round and reactive Sclera/Conjunctival: left: injection and exudate and right: normal inspection ENT ENT exam: Present mucous membranes moist and normal external ear exam Expanded ENT Exam TM/Canal exam: Bilateral TM: erythema, bulging and effusion Nose exam: Absent sinus tenderness Nasal speculum exam: Bilateral: normal Mouth exam: Present normal external inspection and other; Absent drooling Teeth exam: Present normal inspection Throat exam: Present tonsillar erythema and tonsillomegaly Neck Neck exam: Present normal inspection, full ROM and trachea midline; Absent tenderness, meningismus or lymphadenopathy Chest Chest inspection: Present normal inspection and symmetric chest wall rise; Absent tenderness Respiratory Respiratory exam: Present normal lung sounds bilaterally; Absent respiratory distress, wheezes or stridor Cardiovascular Cardiovascular exam: Present regular rate, normal rhythm and normal heart sounds; Absent tachycardia or irregular rhythm Abdominal Exam Abdominal exam: Present soft and normal bowel sounds; Absent distention, tenderness, guarding, rebound or rigidity Extremities Exam Extremities exam: Present normal inspection and normal capillary refill; Absent tenderness, joint swelling or calf tenderness Back Exam Back exam: Present normal inspection and full ROM; Absent tenderness, CVA tenderness (R) or CVA tenderness (L) Neurological Exam Neurological exam: Present alert, oriented X3, CN II-XII intact, normal gait and reflexes normal; Absent motor sensory deficit Psychiatric Psychiatric exam: Present normal affect and normal mood Skin Skin exam: Present warm, dry, intact and normal color Lymphatic Lymphatic Findings: no adenopathy Medical Decision Making Medical Records Medical records reviewed: No I reviewed the patient's medical records. Kulwant Inquiry Pt receiving controlled substance: No
[2023-09-06 09:06] VITALS: BP 118/79; PULSE 76; RESP 20; TEMP 36.9; O2SAT 98
== END 2023-09-06 09:12 | disposition home or self-care (01) ==
PROVIDERS: Emergency Provider Nurse Practitioner Family; PCP Nurse Practitioner Family
DX: J01.90 Acute sinusitis, unspecified (principal); H66.93 Otitis media, unspecified, bilateral; H00.016 Hordeolum externum left eye, unspecified eyelid
CPT/HCPCS: 99212; 99214; G0463

== ENCOUNTER 2023-09-18 08:42 | Emergency (ER) | payer OTHER, SELFPAY ==
[2023-09-18 08:45] VITALS: BP 136/94; PULSE 100; RESP 18; TEMP 37.3; O2SAT 97; BMI 33.9
--- NOTE | 2023-09-18 09:01 | EXP.UTC ---
Discharge Plan Disposition Patient Disposition: Home, Self-Care Condition: Good Prescriptions Prescriptions: New polymyxin B sulf-trimethoprim 10,000 unit- 1 mg/mL drops 2 drp ophthalmic (eye) Q6H 7 Days Qty: 10 0RF Rx Instructions: while awake; do not exceed 6 doses in 24 hours No Action Christina 14 mcg/24 hrs (3 yrs) 13.5 mg intrauterine device 1 device intrauterine ONCE sumatriptan succinate 50 mg tablet See Rx Instructions PO .COMPLEX Qty: 10 2RF Rx Instructions: take 1 tab at onset of headache; if no relief may repeat 1 tab after at least 2 hrs; max = 4 tabs/24 hr PO Referrals Follow up/Referrals: Loi Simpson APRN [Primary Care Provider] - See instructions Activity Restrictions/Add. Instructions Additional Instructions/Restrictions: Use eye drops as prescribed Follow up with your Eye Doctor if no improvement or any worsening of symptoms Follow up with your Family Doctor and/or Neurology if you continue to have break through headaches Straight to ER if any life threatening symptoms Clinical Impressions Clinical Impression: Conjunctivitis of right eye, Headache Stand Alone Forms Stand Alone Forms: Work/School Release Instructions Patient Instructions: DI for Conjunctivitis, DI for Headache Discharge ED Provider: Rosa Purcell [facility] General Stated complaint: headache Mode of Arrival: Ambulatory Source of Information: Patient Limitations: No Limitations Time Seen by Provider: 09/18/23 09:03 Description of Symptoms (Recalled from Triage Doc. by RN): Pt's symptoms are head aches, and redness in eyes. HEENT Symptoms (Recalled from RN notes): Yes Resp Symptoms (Recalled from RN notes): No Skin Symptoms (Recalled from RN notes): No MS Symptoms (Recalled from RN notes): No Functional Status (Recalled from RN notes): n/a History of Present Illness Provider Complaint: Patient states that she had pink eye in her left eye a week or so ago and now it is in the right, states she is having redness, drainage and matting in her right eye States that she also has a hx of migraine headaches and sometimes comes in and gets a shot for it and this morning she felt a migraine coming on so she wanted to see if she could get it to help States that she took some Ibuprofen this morning around 8am unsure how much Related Data Home Medications Medication Instructions Recorded Confirmed levonorgestrel 14 mcg/24 hr (up to 1 device intrauterine ONCE 07/03/23 09/18/23 3 yrs) 13.5 mg intrauterine device (Christina) Previous Rx's Medication Instructions Recorded sumatriptan succinate 50 mg tablet See Rx Instructions PO .COMPLEX 08/28/23 #10 tabs polymyxin B sulfate 10,000 2 drp ophthalmic (eye) Q6H 7 days 09/18/23 unit-trimethoprim 1 mg/mL eye drops #10 mL Allergies Allergy/AdvReac Type Severity Reaction Status Date / Time amoxicillin [AMOXICILLIN] AdvReac Mild Gastrointestinal Verified 09/18/23 08:57 Upset Penicillins AdvReac Mild Gastrointestinal Verified 09/18/23 08:57 Upset Worker's Comp Is this a Worker's Comp case?: No [facility] Disclaimer: The information contained in this section may have been updated after the patient was seen, as this information can be updated by other users. 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 Right ovarian cyst Acne Pelvic pain PCOS (polycystic ovarian syndrome) Thyroid disease History of anemia Depression Anxiety History of gastroesophageal reflux (GERD) Insomnia Migraine Surgical History History of tympanostomy tube placement Family History Other Diabetes Social History Smoking Status: Never smoker second hand exposure: No alcohol intake: never substance use type: denies use current occupational status: other Travel in the last 8 weeks: None household members: family housing: house number of children: 0 current occupational exposures/hazards: No caffeine: Yes ROS Obtained: Yes All systems reviewed & no additional complaints except as documented and Yes Systems reviewed as appropriate & no additional complaints except as documented Constitutional Constitutional: Reports system reviewed and no additional complaints, except as documented, Reports as per HPI and Reports headache(s) Eyes Eyes: Reports system reviewed and no additional complaints, except as documented, Reports as per HPI, Reports eye discharge (right) and Reports irritation (right) ENT Ears, Nose, Mouth, and Throat: Reports system reviewed and no additional complaints, except as documented, Reports as per HPI and Reports headache(s) Cardiovascular Cardiovascular: Reports system reviewed and no additional complaints, except as documented and Reports as per HPI Respiratory Respiratory: Reports system reviewed and no additional complaints, except as documented and Reports as per HPI Gastrointestinal Gastrointestingal: Reports system reviewed and no additional complaints, except as documented and as per HPI Neurologic Neurologic: Reports headache(s) Physical Exam General General appearance: alert and in no apparent distress Eye Eye exam: Present normal appearance, PERRL, EOMI, conjunctival redness (right) and discharge (right with matting particles noted in lashes) Respiratory Respiratory exam: Present normal lung sounds bilaterally; Absent respiratory distress or wheezes Cardiovascular Cardiovascular exam: Present regular rate, normal rhythm and normal heart sounds Neurological Exam Neurological exam: Present alert, oriented X3 and normal gait Medical Decision Making [place]want Inquiry Pt receiving controlled substance: No Kulwant was queried for this patient: No Vital Signs: 09/18/23 08:45 Temperature 99.1 F Temperature Source Oral Pulse Rate [Right Radial] 100 H Respiratory Rate 18 Blood Pressure [Right Arm] 136/94 H Blood Pressure Mean [Right Arm] 108 Blood Pressure Source [Right Arm] Automatic Cuff Blood Pressure Position [Right Arm] Sitting 02 Sat by Pulse Oximetry 97 Oxygen Delivery Method Room Air Medical Decision Narrative: Medication discussed with pharmacy due to patient taking an unknown amount of Ibuprofen this am therefore will not give Toradol instead will try Ubrelvy
--- NOTE | 2023-09-18 09:02 | PC.NURSE ---
Pt stated that she is not , and she had her last period sometime this month and could not remember date. She has a IUD in place.
[2023-09-18] MEDS: UBROGEPANT 50MG TABLET 50 MG PO (09:14)
[2023-09-18 09:35] VITALS: BP 136/94; PULSE 100; RESP 18; TEMP 37.3; O2SAT 97
== END 2023-09-18 09:35 | disposition home or self-care (01) ==
PROVIDERS: Emergency Provider Nurse Practitioner; PCP Nurse Practitioner Family
DX: G44.89 Other headache syndrome (principal); H10.31 Unspecified acute conjunctivitis, right eye
CPT/HCPCS: 99212; 99214; G0463

== ENCOUNTER 2023-09-21 14:36 | Outpatient (CLI) | payer OTHER, SELFPAY ==
--- NOTE | 2023-09-21 14:36 | MR_ITS ---
FINAL REPORT CLINICAL HISTORY: Migraines. COMPARISON: None (report from prior MRI of the head dated 05/24/2020 is available) FINDINGS: Multiplanar MR imaging of the brain was performed without and with contrast. There is no evidence of intracranial hemorrhage or mass. 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 The ventricular size is within normal limits. There is no evidence of shift of the midline structures. The posterior fossa and brainstem have an unremarkable appearance. No area of abnormal restricted diffusion is identified. No abnormal contrast enhancement is seen. Normal major vessel vascular flow voids are noted. IMPRESSION: No acute intracranial abnormality identified. Reviewed, Interpreted and Dictated by Darrius Corado MD Transcribed by Sheryl Perez Authenticated and [facility]
[2023-09-21] MEDS: SODIUM CHLORIDE 0.9% 10ML FLUSH SYRINGE 10 ML IV (15:43)
[2023-09-21] MEDS: GADOTERIDOL INJ 20ML SYRINGE 20 ML IV (15:43)
== END 2023-09-21 23:59 | disposition home or self-care (01) ==
LOC: RAD 14:36
PROVIDERS: PCP Nurse Practitioner Family; Visit Provider Nurse Practitioner Family
DX: G43.901 Migraine, unspecified, not intractable, with status migrainosus (principal)
CPT/HCPCS: 70553; A9576

== ENCOUNTER 2023-10-18 22:23 | Outpatient (CLI) | payer OTHER, SELFPAY | END 2023-10-18 23:59 | disposition home or self-care (01) | LOC: LAB 22:24 | PROVIDERS: PCP Nurse Practitioner Family; Visit Provider Nurse Practitioner Family | DX: N39.0 Urinary tract infection, site not specified (principal); R31.9 Hematuria, unspecified; B96.1 Klebsiella pneumoniae [K. pneumoniae] as the cause of diseases classified elsewhere | CPT/HCPCS: 87086; 87088; 87186 ==

== ENCOUNTER 2023-11-12 14:46 | Outpatient (CLI) | payer OTHER, SELFPAY ==
[2023-11-12 16:26] LABS: Microscopic, Urine URINE MICROSCOPIC (MICROSCOPIC)
[2023-11-12 18:19] LABS: Appearance,Urine CLEAR (Clear); Bilirubin,Urine Negative (Negative); Blood, Urine 2+ (Negative); Color,Urine YELLOW (Yellow); Glucose,Urine (UA) Negative (Negative); Ketones,Urine Negative (Negative); Leukocyte Esterase,Urine Negative (Negative); Nitrate,Urine Negative (Negative); Protein,Urine Negative (Negative); Specific Gravity, Urine 1.015 (1.005-1.030); Urobilinogen,Urine 0.2 EU/dl (0.2)
[2023-11-14 13:00] LABS: Sex Hormone Binding Globulin 54.9 nmol/L (24.6-122.0)
[2023-11-18 14:12] LABS: Atopobium vaginae Moderate - 1 Score (.); BVAB2 Low - 0 Score (.); Candida albicans NAA Negative (Negative); Candida glabrata Negative (Negative); Chlamydia Trachomatis NAA Negative (Negative); HSV 1 NAA Negative (Negative); HSV 2 NAA Negative (Negative); Megasphaera 1 Low - 0 Score (.); Neisseria gonorrhoeae NAA Negative (Negative); Trich vag NAA Negative (Negative)
== END 2023-11-12 23:59 | disposition home or self-care (01) ==
LOC: LAB 14:47
PROVIDERS: PCP Nurse Practitioner Family; Visit Provider Urology
DX: R32 Unspecified urinary incontinence (principal)
CPT/HCPCS: 36415; 81001; 84270; 87491; 87529; 87563; 87591; 87661; 87798; 87801

== ENCOUNTER 2023-11-16 11:32 | Day surgery (SDC) | payer OTHER, SELFPAY ==
[2023-11-14 13:13] VITALS: BMI 32.8
[2023-11-16 11:45] VITALS: BP 133/73; PULSE 97; RESP 18; O2SAT 98
[2023-11-16] MEDS: 0.9 % SODIUM CHLORIDE 1000ML 1,000 ML 25 ML IV (12:20)
[2023-11-16 12:40] VITALS: BP 128/79; PULSE 87; RESP 16; TEMP 36.6; O2SAT 98
[2023-11-16 14:00] LABS: Microscopic,Cath URINE MICROSCOPIC (MICROSCOPIC)
[2023-11-16 14:09] LABS: Appearance,Urine/Cath CLEAR (Clear); Bilirubin,Cath Negative (Negative); Blood, Urine/Cath 1+ (Negative); Color,Urine/Cath YELLOW (Yellow); Glucose,Urine/Cath (UA) Negative (Negative); Ketones,Urine/Cath Negative (Negative); Leukocyte Esterase,Cath Negative (Negative); Nitrate,Cath Negative (Negative); Protein,Urine/Cath Negative (Negative); Specific Gravity, Urine/Cath >= 1.030 (1.005-1.030); Urobilinogen,Cath 0.2 EU/dl (0.2)
[2023-11-16 14:42] LABS: RBC,Urine/Cath Occasional # /hpf (0-3)
--- NOTE | 2023-11-17 07:30 | P.PCN_ITS ---
[facility] Procedure Note Date: 11/16/23 Time: 10:00 Procedure Note:: Chart review: The patient is troubled with recurrent urinary tract infection. She also has been noted to have 10 red cells per high-powered field on urine analysis on 11/20. Her CT scan with infusion on 06/23 showed colitis and constipation. He has been on oxybutynin and Macrobid. Preop diagnosis UTI: Postop diagnosis UIT; Operative Note: The patient was brought to the cystoscopy room. She underwent catheterization for urine culture and sensitivity and urinalysis. She then underwent flexible cystoscopy. Her urethra was unremarkable. The bladder itself is [place] pink in color throughout without evidence of bladder stone tumor hemorrhage or infection. The ureteral orifice ease bilaterally are normal with clear reflux of urine. She tolerated the procedure well and coming follow- up in a few weeks.
== END 2023-11-16 12:35 | disposition home or self-care (01) ==
PROVIDERS: PCP Nurse Practitioner Family; Visit Provider Urology
PROC: 0TJB8ZZ Inspection of Bladder, Via Natural or Artificial Opening Endoscopic (ICD-10-PCS; CPT 52000; principal; 2023-11-16 12:45)
DX: R31.9 Hematuria, unspecified (principal); N39.0 Urinary tract infection, site not specified; N39.41 Urge incontinence; R35.1 Nocturia
CPT/HCPCS: 52000; 81001

== ENCOUNTER 2023-11-20 07:31 | Emergency (ER) | payer OTHER, SELFPAY ==
[2023-11-20] VITALS (10 sets, daily range): BP systolic 89–145; BP diastolic 67–109; PULSE 63–105; RESP 15–19; TEMP 36.9; O2SAT 90–100; BMI 33.9
--- NOTE | 2023-11-20 07:44 | HMH.EDGENADL ---
Discharge Plan Disposition Patient Disposition: Home, Self-Care Condition: Good Prescriptions Prescriptions: New ondansetron 4 mg tablet,disintegrating 4 mg PO Q8H PRN (Reason: nausea and vomiting) 4 Days Qty: 12 0RF polyethylene glycol 3350 [Miralax] 17 gram/dose powder 17 g PO DAILY Qty: 510 0RF sennosides [senna] 8.6 mg tablet 8.6 mg PO DAILY Qty: 30 0RF bisacodyl [Dulcolax (bisacodyl)] 10 mg suppository 10 mg CA DAILY PRN (Reason: constipation) Qty: 12 0RF No Action Christina 14 mcg/24 hrs (3 yrs) 13.5 mg intrauterine device 1 device intrauterine ONCE oxybutynin chloride 10 mg tablet extended release 24hr 10 mg PO DAILY Qty: 90 3RF nitrofurantoin macrocrystal [Macrodantin] 100 mg capsule 100 mg PO HS Qty: 30 0RF Rx Instructions: must administer with a meal/food venlafaxine [Effexor XR] 37.5 mg capsule,extended release 24hr 37.5 mg PO DAILY Qty: 30 2RF Referrals Follow up/Referrals: Loi Simpson APRN [Primary Care Provider] - See instructions Activity Restrictions/Add. Instructions Additional Instructions/Restrictions: You were evaluated in the emergency department today. 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 Please follow-up closely with your primary care provider, your urologist, and your route sales manager for further evaluation and management. Return to the emergency department for new or worsening symptoms. Take Tylenol and ibuprofen at home as needed for pain. 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 Clinical Impressions Clinical Impression: Ovarian cyst, Fecal impaction Abdominal pain Qualifiers: Abdominal location: generalized Qualified Code(s): R10.84 - Generalized abdominal pain Stand Alone Forms Stand Alone Forms: Work/School Release Instructions Patient Instructions: DI for Acute Abdominal Pain, Nausea and Vomiting-Adult Discharge ED Provider: Milvia Coffey General Adult HPI General Chief complaint: Abdominal Pain Stated complaint: abd pain Time Seen by Provider: 11/20/23 07:39 History of Present Illness HPI narrative: This patient is a 23-year-old female with a history of PCOS, GERD, and migraines as well as recurrent abdominal pain and IBS presenting to the emergency department for evaluation with concern for lower abdominal pain. Patient reports that she is having pain all way across her lower abdomen. She states last week she was having some diarrhea, but her stools are since firmed up. She is having normal colored stools with bright red streaks of blood now as well as lower abdominal discomfort. She also notes nausea and vomiting. No fevers or urinary symptoms. Patient has had multiple ED and outpatient visits in the past for abdominal pain, and she states this is similar to prior episodes of abdominal pain but symptoms are slightly worse. Related Data Home Medications Medication Instructions Recorded Confirmed levonorgestrel 14 mcg/24 hr (up to 1 device intrauterine ONCE 07/03/23 11/14/23 3 yrs) 13.5 mg intrauterine device (Christina) Previous Rx's Medication Instructions Recorded venlafaxine 37.5 mg 37.5 mg PO DAILY #30 caps 10/17/23 capsule,extended release 24 hr (Effexor XR) nitrofurantoin macrocrystal 100 mg 100 mg PO HS #30 caps 11/12/23 capsule (Macrodantin) oxybutynin chloride 10 mg 10 mg PO DAILY #90 tabs 11/12/23 tablet,extended release 24 hr bisacodyl 10 mg rectal suppository 10 mg CA DAILY PRN constipation 11/20/23 (Dulcolax (bisacodyl)) #12 ea ondansetron 4 mg disintegrating 4 mg PO Q8H PRN nausea and 11/20/23 tablet vomiting 4 days #12 tabs polyethylene glycol 3350 17 17 g PO DAILY #510 grams 11/20/23 gram/dose oral powder (Miralax) sennosides 8.6 mg tablet (senna) 8.6 mg PO DAILY #30 tabs 11/20/23 Allergies Allergy/AdvReac Type Severity Reaction Status Date / Time amoxicillin [AMOXICILLIN] AdvReac Mild Gastrointestinal Verified 11/14/23 13:12 Upset Penicillins AdvReac Mild Gastrointestinal Verified 11/14/23 13:12 Upset PFSH PFSH Disclaimer: The information contained in this section may have been updated after the patient was seen, as this information can be updated by other users. 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 Right ovarian cyst Acne Pelvic pain PCOS (polycystic ovarian syndrome) Thyroid disease History of anemia History of gastroesophageal reflux (GERD) Insomnia Migraine Surgical History History of esophagogastroduodenoscopy (EGD) History of tympanostomy tube placement Family History Other Diabetes Social History Smoking Status: Never smoker second hand exposure: No alcohol intake: never substance use type: denies use current occupational status: other Travel in the last 8 weeks: None household members: family housing: house number of children: 0 current occupational exposures/hazards: No caffeine: Yes ROS Obtained: Yes All systems reviewed & no additional complaints except as documented Physical Exam General General appearance: alert and in no apparent distress Head Head exam: atraumatic and normocephalic Eye Eye exam: Present normal appearance, PERRL and EOMI ENT ENT exam: Present normal exam, normal oropharynx, mucous membranes moist and normal external ear exam Neck Neck exam: Present normal inspection, full ROM and trachea midline; Absent tenderness Chest Chest inspection: Present normal inspection and symmetric chest wall rise; Absent tenderness Respiratory Respiratory exam: Present normal lung sounds bilaterally; Absent respiratory distress, wheezes, stridor or accessory muscle use Cardiovascular Cardiovascular exam: Present regular rate and normal rhythm Abdominal Exam Abdominal exam: Present soft and tenderness (Lower abdomen, mild with deep palpation); Absent distention, guarding, rebound or rigidity Extremities Exam Extremities exam: Present normal inspection, full ROM and normal capillary refill; Absent tenderness or edema Back Exam Back exam: Present normal inspection and full ROM; Absent tenderness Neurological Exam Neurological exam: Present alert, oriented X3, CN II-XII intact and normal gait; Absent motor sensory deficit Psychiatric Psychiatric exam: Present normal affect and normal mood Skin Skin exam: Present warm and dry Medical Decision Making Medical Records Medical records reviewed: Yes I reviewed the patient's medical records. Kulwant Inquiry Pt receiving controlled substance: No Vital Signs: 11/20/23 07:32 11/20/23 07:40 11/20/23 08:00 Temperature 98.4 F Temperature Source Oral Pulse Rate 104 H 82 Pulse Rate [Left Radial] 105 H Respiratory Rate 19 Blood Pressure 145/109 H 123/84 Blood Pressure [Right Arm] 145/109 H Blood Pressure Mean 118 97 Blood Pressure Mean [Right Arm] 121 02 Sat by Pulse Oximetry 99 99 94 L Oxygen Delivery Method Room Air 11/20/23 08:30 11/20/23 09:00 11/20/23 09:30 Temperature Temperature Source Pulse Rate 78 68 70 Pulse Rate [Left Radial] Respiratory Rate Blood Pressure 130/82 114/76 111/71 Blood Pressure [Right Arm] Blood Pressure Mean 96 87 81 Blood Pressure Mean [Right Arm] 02 Sat by Pulse Oximetry 98 98 99 Oxygen Delivery Method 11/20/23 10:00 11/20/23 10:57 11/20/23 11:01 Temperature Temperature Source Pulse Rate 65 63 65 Pulse Rate [Left Radial] Respiratory Rate Blood Pressure 102/80 L 89/67 L 89/72 L Blood Pressure [Right Arm] Blood Pressure Mean 86 74 75 Blood Pressure Mean [Right Arm] 02 Sat by Pulse Oximetry 98 90 L 94 L Oxygen Delivery Method 11/20/23 11:41 Temperature 98.4 F Temperature Source Oral Pulse Rate 69 Pulse Rate [Left Radial] Respiratory Rate 15 Blood Pressure 103/84 L Blood Pressure [Right Arm] Blood Pressure Mean Blood Pressure Mean [Right Arm] 02 Sat by Pulse Oximetry Oxygen Delivery Method Room Air Lab Data Lab results reviewed: Yes I reviewed the patient's lab results. Lab Results 11/20/23 07:41: Urine Color Yellow, Urine Appearance Clear, Urine pH 6.0, Ur Specific [place] 1.025, Urine Protein Negative, Urine Glucose (UA) Negative, Urine Ketones Negative, Urine Blood 2+, Urine Nitrate Negative, Urine Bilirubin Negative, Urine Urobilinogen 0.2, Ur Leukocyte Esterase Negative, Urine RBC Occasional, Urine WBC Occasional, Ur Squamous Epith Cells 5-10, Urine Bacteria Trace, Urine HCG, Qual Negative 11/20/23 07:50: WBC 6.3, RBC 4.54, Hgb 14.3, Hct 42.3, MCV 93.2, MCH 31.6 H, MCHC 33.9, RDW 14.3, Plt Count 357, MPV 8.8, Neut % (Auto) 51.8, Lymph % (Auto) 37.3, Vance % (Auto) 5.5, Eos % (Auto) 3.6, Baso % (Auto) 1.7, Neut # (Auto) 3.3, Lymph # (Auto) 2.3, Vance # (Auto) 0.3, Eos # (Auto) 0.2, Baso # (Auto) 0.1, Sodium 139, Potassium 3.7, Chloride 106, Carbon Dioxide 24, Anion Gap 12.7, BUN 16, Creatinine 0.70, Estimated Creat Clear 191, Estimated GFR 106, Est GFR ( Amer) 128, Glucose 103 H, Calcium 9.4, Total Bilirubin 1.0, AST 37 H, ALT 33, Alkaline Phosphatase 118, Total Protein 7.7, Albumin 4.5, Globulin 3.2, Albumin/Globulin Ratio 1.4, Lipase 58, Serum HCG, Qual Negative 11/20/23 07:50 11/20/23 07:50 Orders (Tests/Meds): ED MEDICATIONS Discontinued Medications Generic Name Dose Route Start Last Admin Trade Name Freq PRN Reason Stop Dose Admin Acetaminophen 1,000 mg 11/20/23 07:44 11/20/23 08:10 Acetaminophen 500mg Tab PO 11/20/23 07:45 1,000 mg ONCE ONE Administration Lactated Ringer's 1,000 mls @ 999 mls/hr 11/20/23 07:44 11/20/23 08:10 Lactated Ringer's 1000 Ml Bag IV 11/20/23 08:44 999 mls/hr .Q1H1M ONE Administration Iopamidol 75 ml 11/20/23 10:33 11/20/23 10:36 Iopamidol-370 (76%);100ml Bottle IV 11/20/23 10:34 75 ml ONCE ONE Administration Ketorolac Tromethamine 15 mg 11/20/23 07:44 11/20/23 08:55 Ketorolac 30mg/Ml Vial IV 11/20/23 07:45 15 mg ONCE ONE Administration Ondansetron HCl 4 mg 11/20/23 07:44 11/20/23 08:10 Ondansetron 4mg/2ml Vial IV 11/20/23 07:45 4 mg ONCE ONE Administration Sodium Chloride 10 ml 11/20/23 10:33 11/20/23 10:36 Sodium Chloride 0.9% 10ml Syr (Rad Only) IV 11/20/23 10:34 10 ml ONCE ONE Administration ORDERS Category Date Time Status CT abdomen pelvis w con Stat Cat Scan 11/20/23 09:04 Completed Complete Blood Count Auto Diff Stat Lab 11/20/23 07:50 Completed Comprehensive Metabolic Panel Stat Lab 11/20/23 07:50 Completed Lipase Stat Lab 11/20/23 07:50 Completed Serum [HCG Qualitative, Serum] Stat Lab 11/20/23 07:50 Completed UA [Urinalysis and Microscopic] Stat Lab 11/20/23 07:41 Completed Urine , HCG Qual. Stat Lab 11/20/23 07:41 Completed Medical Decision Narrative: In summary, this patient is a 23-year-old female presenting to the Emergency Department for evaluation of lower abdominal pain as well as recent diarrhea, blood-streaked stools, and nausea/vomiting. Differential diagnoses considered include but are not limited to cystitis, pyelonephritis, colitis, gastroenteritis, IBS flare, ovarian cyst, appendicitis. Ruling out the most morbid conditions drove assessment. It should be noted patient's history includes recurrent abdominal pain in the past which is not at goal therapy. This complicates all aspects of care by increasing patient's risk for morbidity. I reviewed patient's past medical records and noted her previous visits for abdominal pain as well as multiple previous abdominal CTs as well as transvaginal ultrasounds which have been reassuring. On exam, the patient is very well-appearing and is in no acute distress. She is resting comfortably in bed with normal vital signs on cardiac telemetry. She has mild lower abdominal tenderness with deep palpation, but otherwise exam is reassuring with no rebound or guarding. Based on reassuring exam and the fact that the pain does not localize and has been going on for about a week, I doubt surgical intra-abdominal pathology at this time. Workup included CBC, CMP, lipase, urinalysis, and test. She was given a bolus of IV fluids as well as IV Toradol, oral Tylenol, and IV Zofran for symptomatic improvement.. On reassessment, the patient is resting comfortably. Abdominal exam remains benign. She states she still hurting really badly, so CT scan of the abdomen pelvis with IV contrast was obtained. Labs are normal. CT scan demonstrates fecal impaction and small ovarian cyst, which I do not feel are likely to cause any significant mass effect or ovarian torsion. She also is resting comfortably on exam with benign abdominal exam and the pain has been going on for a while now, which suggest against ovarian torsion as well. I feel she likely is having spasming secondary to the fecal impaction. Patient agreeable with discharge home with prescription for suppositories, MiraLAX, and senna for cleanout. She was given instructions for close follow-up and strict return precautions. She was discharged after all questions were answered. Critical Care Critical Care Time Critical Care Time: No
[2023-11-20 07:46] LABS: Microscopic, Urine URINE MICROSCOPIC (MICROSCOPIC)
[2023-11-20 07:54] LABS: Appearance,Urine CLEAR (Clear); Bilirubin,Urine Negative (Negative); Blood, Urine 2+ (Negative); Color,Urine YELLOW (Yellow); Glucose,Urine (UA) Negative (Negative); Ketones,Urine Negative (Negative); Leukocyte Esterase,Urine Negative (Negative); Nitrate,Urine Negative (Negative); Protein,Urine Negative (Negative); Specific Gravity, Urine 1.025 (1.005-1.030); Urobilinogen,Urine 0.2 EU/dl (0.2)
[2023-11-20 07:55] LABS: Urine Pregnancy, HCG Qual. Negative (Negative)
[2023-11-20 07:57] LABS: Basophils # 0.1 K/mm3 (0-0.2); Basophils % 1.7 % (0.1-2.0); Eosinophils # 0.2 K/mm3 (0.0-0.4); Eosinophils % 3.6 % (0.1-12.0); Hematocrit 42.3 % (37.0-47.0); Hemoglobin 14.3 g/dL (12.2-16.2); Lymphocytes # 2.3 K/mm3 (0.7-4.5); Lymphocytes % 37.3 % (10-50); Mean Corpuscular HGB Conc 33.9 g/dL (31.8-35.4); Mean Corpuscular Hemoglobin 31.6 pg (27.0-31.2); Mean Corpuscular Volume 93.2 fl (81-99); Mean Platelet Volume 8.8 fl (7.4-10.4); Monocytes # 0.3 K/mm3 (0.1-1.0); Monocytes % 5.5 % (1.7-9.3); Neutrophils # 3.3 K/mm3 (1.8-7.8); Neutrophils % 51.8 % (37.0-80.0); Platelet Count 357 K/mm3 (142-424); Red Blood Count 4.54 M/mm3 (4.20-5.40); Red Cell Distribution Width 14.3 % (11.5-17.5); White Blood Count 6.3 K/mm3 (4.8-10.8)
[2023-11-20 08:09] LABS: Alanine Aminotransferase 33 U/L (12-78); Albumin Level 4.5 g/dl (3.5-5.0); Albumin/Globulin Ratio 1.4 (1.1-1.8); Alkaline Phosphatase 118 U/L (38-126); Anion Gap 12.7 mEq/L (5-15); Aspartate Amino Transferase 37 U/L (14-36); Blood Urea Nitrogen 16 mg/dl (7-17); Calcium 9.4 mg/dl (8.4-10.2); Carbon Dioxide 24 mmol/L (22.0-30.0); Chloride 106 mmol/L (98-107); Creatinine Clearance Estimated 191 mL/min (50-200); Estimated Glomerular Filt Rate 106 ml/min (>60); GFR (African American) 128 ML/MIN (>60); Globulin 3.2 g/dL (1.3-3.2); Glucose 103 mg/dl (74-100); Lipase 58 U/L (23-300); Potassium 3.7 mmoL/L (3.5-5.1); Sodium 139 mmol/L (136-145); Total Protein,Serum 7.7 g/dl (6.3-8.2)
[2023-11-20] MEDS: ONDANSETRON 4MG/2ML VIAL 4 MG IV (08:10)
[2023-11-20] MEDS: ACETAMINOPHEN 500MG TAB 1000 MG PO (08:10)
[2023-11-20] MEDS: LACTATED RINGERS 1000ML 1,000 ML 999 ML IV (08:10)
[2023-11-20 08:11] LABS: Bacteria,Urine Trace /lpf; RBC,Urine Occasional #/hpf (0-3); WBC,Urine Occasional #/hpf (0-3)
[2023-11-20 08:33] LABS: HCG Qualitative, Serum Negative (Negative)
[2023-11-20] MEDS: KETOROLAC 30MG/ML VIAL 15 MG IV (08:55)
--- NOTE | 2023-11-20 09:04 | CT_ITS ---
FINAL REPORT TECHNIQUE: After the administration of IV contrast, axial images through the abdomen and pelvis was performed by computed tomography. Sagittal and coronal reformatted images were obtained and reviewed. This study was performed with techniques to keep radiation doses as low as reasonably achievable (ALARA). Individualized dose reduction techniques using automated exposure control or adjustment of mA and/or kV according to the patient's size were employed. CLINICAL HISTORY: lower abdominal pain COMPARISON: 06/15/2023 FINDINGS: Abdomen: No acute density is seen within the lung bases. The gallbladder is normal. Solid abdominal organs are unremarkable. No bowel obstruction is present. There is no free air. No fluid collection is seen. There is no adenopathy. Pelvis: The appendix is normal. There is mild fecal impaction. The uterus and right ovary are normal. The left ovary is mildly enlarged due to benign-appearing cysts, largest measures 24 mm. No bowel wall thickening is present. There is no free fluid. IMPRESSION: Mild fecal impaction. No bowel obstruction or colitis. Enlarged left ovary due to benign-appearing cysts measuring up to 24 mm. Reviewed, Interpreted and Dictated by Isaías Newman MD Transcribed by Arlette Hall Authenticated and [facility]
[2023-11-20] MEDS: IOPAMIDOL-370 (76%);100ML BOTTLE 75 ML IV (10:36)
[2023-11-20] MEDS: SODIUM CHLORIDE 0.9% 10ML SYR (RAD ONLY) 10 ML IV (10:36)
--- NOTE | 2023-11-20 10:48 | PC.NURSE ---
rounded on pt, pt unhooked for bathroom. updated on poc
--- NOTE | 2023-11-20 10:56 | PC.NURSE ---
pt hooked back to monitor
== END 2023-11-20 11:42 | disposition home or self-care (01) ==
PROVIDERS: Emergency Provider Emergency Medicine; PCP Nurse Practitioner Family
DX: R10.84 Generalized abdominal pain (principal); N83.202 Unspecified ovarian cyst, left side; K56.41 Fecal impaction; R11.2 Nausea with vomiting, unspecified
CPT/HCPCS: 74177; 80053; 81001; 81025; 83690; 84703; 85025; 96361; 96374; 96375; 99284; J1885; J2405; J7120; Q9967

== ENCOUNTER 2024-03-17 16:22 | Emergency (ER) | payer OTHER, SELFPAY ==
[2024-03-17 17:28] VITALS: BP 122/88; PULSE 73; RESP 17; TEMP 36.7; O2SAT 99; BMI 37.4
--- NOTE | 2024-03-17 17:33 | EXP.UTC ---
Discharge Plan Disposition Patient Disposition: Home, Self-Care Condition: Good Prescriptions Prescriptions: New fluticasone propionate [Flonase Allergy Relief] 50 mcg/actuation spray,suspension 2 spray intranasal DAILY Qty: 16 0RF Rx Instructions: administer into each nostril daily cefdinir 300 mg capsule 300 mg PO BID Qty: 20 0RF No Action venlafaxine [Effexor XR] 37.5 mg capsule,extended release 24hr 37.5 mg PO DAILY Qty: 90 0RF Vraylar 1.5 mg capsule 1.5 mg PO DAILY Patient Comments: TAKE 1 CAPSULE BY MOUTH ONCE DAILY Referrals Follow up/Referrals: Loi Simpson APRN [Primary Care Provider] - See instructions Activity Restrictions/Add. Instructions Additional Instructions/Restrictions: *Monitor Temp, Over the counter Motrin or Tylenol as directed/as needed Tylenol every 4 hours and Motrin every 6 hours (as long as your family doctor has told you that you can take it) for fever or pain. and straight to ER if unable to lower temp less than 101.0 after medication given *Warm salt water gargles may help to soothe the throat *Throat Lozenges? *Warm fluids like tea with honey may help to soothe the throat? *Sleep elevated *Humidifier/Vaporizer *Flonase 2 sprays in each nostril daily but be aware that it may take 2-3 days before you notice improvement Follow up IMMEDIATELY for new or worsening symptoms or no Noticeable improvement over the next 48-72 hours. 911 for difficulty breathing or swallowing Clinical Impressions Clinical Impression: Otitis media Instructions Patient Instructions: Middle Ear Infection Print Language Print Language: Wallisian Discharge ED Provider: Rosa Purcell [facility] [place] HPI General Stated complaint: Sore throat,cough,CHAN,SOA Mode of Arrival: Ambulatory Source of Information: Patient Time Seen by Provider: 03/17/24 17:33 Description of Symptoms (Recalled from Triage Doc. by RN): EAR PAIN, COUGH, LIGHT HEADNESS AND MIGRIANE HEENT Symptoms (Recalled from RN notes): Yes Resp Symptoms (Recalled from RN notes): Yes Skin Symptoms (Recalled from RN notes): No MS Symptoms (Recalled from RN notes): No Functional Status (Recalled from RN notes): WNL History of Present Illness Provider Complaint: Patient states that she had been having bilateral ear pain and pressure, and cough States today her ears was still hurting her and causing her to have a slight headache so came in to get checked Related Data Home Medications ?Medication ?Instructions ?Recorded ?Confirmed cariprazine 1.5 mg capsule 1.5 mg PO DAILY 03/17/24 03/17/24 (Vraylar) Previous Rx's ?Medication ?Instructions ?Recorded venlafaxine 37.5 mg 37.5 mg PO DAILY Depression #90 01/30/24 capsule,extended release 24 hr caps (Effexor XR) cefdinir 300 mg capsule 300 mg PO BID #20 caps 03/17/24 fluticasone propionate 50 2 spray intranasal DAILY #16 grams 03/17/24 mcg/actuation nasal spray,suspension (Flonase Allergy Relief) Allergies Allergy/AdvReac Type Severity Reaction Status Date / Time amoxicillin (AMOXICILLIN) AdvReac Mild Gastrointestinal Verified 12/11/23 09:15 Upset Penicillins AdvReac Mild Gastrointestinal Verified 12/11/23 09:15 Upset Worker's Comp Is this a Worker's Comp case?: No [facility] Disclaimer: The information contained in this section may have been updated after the patient was seen, as this information can be updated by other users. 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) Smoking Status: Current every day smoker tobacco type: e-cigarettes second hand exposure: No alcohol intake: never counseling given: No substance use type: denies use counseling given: No current occupational status: employed Travel in the last 8 weeks: None adopted: No caregiver/support person: No foster care: No household members: family housing: house lives independently: No marital status: single number of children: 0 education level: high school current occupational exposures/hazards: No caffeine: Yes physical activity: none working smoke detector in home: Yes fire extinguisher in home: No carbon monox detector in home: Yes firearms in home: Yes firearms unloaded and locked: Yes do you feel safe at home: Yes victim of physical abuse: No victim of emotional abuse: No victim of sexual abuse: No would you like helpful sources: No ROS Obtained: Yes All systems reviewed & no additional complaints except as documented and Yes Systems reviewed as appropriate & no additional complaints except as documented Constitutional Constitutional: Reports system reviewed and no additional complaints, except as documented, Reports as per HPI and Reports headache(s) ENT Ears, Nose, Mouth, and Throat: Reports system reviewed and no additional complaints, except as documented, Reports as per HPI, Reports otalgia, Reports headache(s) and Reports sore throat Cardiovascular Cardiovascular: Reports system reviewed and no additional complaints, except as documented and Reports as per HPI Respiratory Respiratory: Reports system reviewed and no additional complaints, except as documented and Reports as per HPI Gastrointestinal Gastrointestingal: Reports system reviewed and no additional complaints, except as documented and as per HPI Genitourinary Female Genitourinary: Reports system reviewed and no additional complaints, except as documented and Reports as per HPI Neurologic Neurologic: Reports headache(s) Physical Exam General General appearance: alert and in no apparent distress Eye Eye exam: Present normal appearance, PERRL and EOMI Expanded ENT Exam TM/Canal exam: Right TM: erythema and bulging Nose exam: Absent sinus tenderness Throat exam: Present normal inspection Respiratory Respiratory exam: Present normal lung sounds bilaterally; Absent respiratory distress or wheezes Cardiovascular Cardiovascular exam: Present regular rate, normal rhythm and normal heart sounds Neurological Exam Neurological exam: Present alert, oriented X3 and normal gait Medical Decision Making Medical Records Screening: Per USPSTF and CDC recommendations, given the prevalence of disease in our region, it is our hospital?s policy to screen for HIV and viral Hepatitis for all patients aged 18 and over and those with ongoing risk factors. Kulwant Inquiry Pt receiving controlled substance: No Kulwant was queried for this patient: No Vital Signs: 03/17/24 17:28 Temperature 98.1 F Temperature Source Oral Pulse Rate [Left Radial] 73 Respiratory Rate 17 Blood Pressure [Left Arm] 122/88 Blood Pressure Mean [Left Arm] 99 02 Sat by Pulse Oximetry 99 Lab Data Lab results reviewed: Yes I reviewed the patient's lab results. Medical Decision Narrative: Patient states that she is allergic to amoxicillin but has taken Cefdnir in the past without complication or reactions
[2024-03-17 17:45] VITALS: BP 122/88; PULSE 73; RESP 17; TEMP 36.7
== END 2024-03-17 17:47 | disposition home or self-care (01) ==
PROVIDERS: Emergency Provider Nurse Practitioner; PCP Nurse Practitioner Family
DX: H66.93 Otitis media, unspecified, bilateral (principal)
CPT/HCPCS: 99213; G0381

== ENCOUNTER 2024-03-28 23:18 | Emergency (ER) | payer OTHER, SELFPAY ==
--- NOTE | 2024-03-28 23:15 | ECG_ITS ---
APPROVED REPORT Exam: Resting ECG HR:100 bpm ECG Measurements Heart Rate 100 AXES RI 131 P 30 QRSd 94 QRS 37 QT 344 T 35 QTc 401 Conclusion SINUS TACHYCARDIA ABNORMAL RHYTHM ECG Electronically signed by : CATA MILLS, 03/29/2024 06:06:04
[2024-03-28 23:19] VITALS: BP 126/90; PULSE 99; RESP 18; TEMP 36.4; O2SAT 99; BMI 34.7
[2024-03-28 23:23] VITALS: PULSE 99
--- NOTE | 2024-03-28 23:38 | XR_ITS ---
PROCEDURE INFORMATION: Exam: XR Chest Exam date and time: 03/29/2024 12:03 AM Age: 24 years old Clinical indication: Pain; Chest pressure; Additional info: Cp TECHNIQUE: Imaging protocol: Radiologic exam of the chest. Views: 2 views. COMPARISON: CT ANGIO CHEST PE PROTOCOL 04/05/2023 5:57 PM FINDINGS: Lungs: There is a small opacity in the medial right lower lobe which could be related to underinflation and parenchymal crowding or developing infection. There is mild prominence of the perihilar lung markings which could be related to crowding. Pleural spaces: No large effusion or pneumothorax. Heart/Mediastinum: No evidence of mediastinal widening or cardiac silhouette enlargement; the mediastinum and heart appear within normal limits for contour and size. Bones/joints: No evidence of acute osseous abnormalities within the visualized portions of the thoracic spine and ribs. Osseous structures appear appropriate for patient age. Other findings: There is a low level of inspiration. IMPRESSION: There is a small opacity in the medial right lower lobe which could be related to underinflation and parenchymal crowding or developing infection.
[2024-03-28 23:47] LABS: Basophils # 0.2 K/mm3 (0-0.2); Basophils % 1.8 % (0.1-2.0); Eosinophils # 0.3 K/mm3 (0.0-0.4); Hematocrit 44.6 % (37.0-47.0); Hemoglobin 15.1 g/dL (12.2-16.2); Lymphocytes # 5.1 K/mm3 (0.7-4.5); Mean Corpuscular Hemoglobin 30.8 pg (27.0-31.2); Mean Corpuscular Volume 90.6 fl (81-99); Mean Platelet Volume 8.4 fl (7.4-10.4); Monocytes # 0.8 K/mm3 (0.1-1.0); Neutrophils # 6.7 K/mm3 (1.8-7.8); Neutrophils % 51.1 % (37.0-80.0); Platelet Count 392 K/mm3 (142-424); Red Blood Count 4.92 M/mm3 (4.20-5.40); Red Cell Distribution Width 13.7 % (11.5-17.5); White Blood Count 13.1 K/mm3 (4.8-10.8)
[2024-03-28 23:48] LABS: Chloride 105 mmol/L (98-107); Potassium 3.5 mmoL/L (3.5-5.1); Sodium 143 mmol/L (136-145)
[2024-03-28 23:51] LABS: Alanine Aminotransferase 43 U/L (12-78); Albumin/Globulin Ratio 1.3 (1.1-1.8); Alkaline Phosphatase 151 U/L (38-126); Anion Gap 14.5 mEq/L (5-15); Aspartate Amino Transferase 71 U/L (14-36); Bilirubin,Total 0.4 mg/dl (0.2-1.3); Blood Urea Nitrogen 24 mg/dl (7-17); Carbon Dioxide 27 mmol/L (22.0-30.0); Creatinine Clearance Estimated 170 mL/min (50-200); Estimated Glomerular Filt Rate 90 ml/min (>60); GFR (African American) 109 ML/MIN (>60); Globulin 3.8 g/dL (1.3-3.2); Total Protein,Serum 8.8 g/dl (6.3-8.2)
[2024-03-28 23:52] LABS: Calcium 9.3 mg/dl (8.4-10.2); Glucose 103 mg/dl (74-100)
[2024-03-29] MEDS: ASPIRIN 81MG CHEWABLE TABLET 324 MG PO
[2024-03-29] MEDS: hydrOXYzine pamoate 25MG CAPSULE 25 MG PO (00:01)
[2024-03-29 00:04] LABS: HCG Qualitative, Serum Negative (Negative); Troponin I < 0.01 ng/ml (0.00-0.034)
[2024-03-29] MEDS: BELLADONNA ALKALOIDS 60 ML ML PO (00:48)
[2024-03-29] MEDS: ONDANSETRON 4MG/2ML VIAL 4 MG IV (00:48)
[2024-03-29 00:54] LABS: HIV (1&2) Antibody Rapid NONREACTIVE (NONREACTIVE)
--- NOTE | 2024-03-29 02:22 | ED_ITS ---
Discharge Plan Disposition Patient Disposition: Home, Self-Care Condition: Good Prescriptions Prescriptions: New ondansetron 4 mg tablet,disintegrating 4 mg PO Q6H PRN (Reason: nausea and vomiting) Qty: 7 0RF No Action venlafaxine [Effexor XR] 37.5 mg capsule,extended release 24hr 37.5 mg PO DAILY Qty: 90 0RF Vraylar 1.5 mg capsule 1.5 mg PO DAILY Patient Comments: TAKE 1 CAPSULE BY MOUTH ONCE DAILY fluticasone propionate [Flonase Allergy Relief] 50 mcg/actuation spray,suspension 2 spray intranasal DAILY Qty: 16 0RF Rx Instructions: administer into each nostril daily cefdinir 300 mg capsule 300 mg PO BID Qty: 20 0RF Referrals Follow up/Referrals: Provider,Referral, MD [Primary Care Provider] - See instructions Activity Restrictions/Add. Instructions Additional Instructions/Restrictions: You were evaluated in the ER and are appropriate for discharge at this time. Take the prescribed ondansetron if needed for nausea/vomiting. Continue taking your other home medications as prescribed. Make an appointment with your primary care doctor for reevaluation in a few days. Return to the ER with new, worsening, or otherwise concerning symptoms. Clinical Impressions Clinical Impression: Chest pain, Nausea Print Language Print Language: Wolof Discharge ED Provider: Diamante Jama Adult HPI General Chief complaint: Chest Pain Stated complaint: Chest Pain Time Seen by Provider: 03/28/24 23:22 Mode of Arrival: Ambulatory Source of Information: Patient Limitations: No Limitations Description of Symptoms (Recalled from ER Triage Doc. by RN): Pt ambulatory to ED with cc of chest pain. Pt states chest pain started at approx 2230. Pt describes the pain as sharp that radiates to back and stomach. Pt states having nausea and taking Pepto Bismol DIP DYER. Pt denies having a cardiac hx. Pt states having a hx of anxiety. History of Present Illness HPI narrative: 24-year-old female presents to the ER complaining of chest pain that started approximately 2 hours prior to arrival. Patient describes the pain as sharp in the right side of the chest radiating to her back and stomach., She states the sharpness has subsided, she now just has a pressure sensation. She reports nausea. She denies any right upper quadrant abdominal pain, no vomiting or diarrhea, no recent fevers, no cough, congestion, dizziness, headache, dysuria, hematuria, patient reports she has an IUD. Patient reports no history of blood clot, no swelling or pain in the legs. Patient reports last menstrual period was 2 weeks ago. ROS otherwise negative. Patient does report in the past she has been told her anxiety causes for symptoms. Related Data Home Medications ?Medication ?Instructions ?Recorded ?Confirmed cariprazine 1.5 mg capsule 1.5 mg PO DAILY 03/17/24 03/17/24 (Vraylar) Previous Rx's ?Medication ?Instructions ?Recorded venlafaxine 37.5 mg 37.5 mg PO DAILY Depression #90 01/30/24 capsule,extended release 24 hr caps (Effexor XR) cefdinir 300 mg capsule 300 mg PO BID #20 caps 03/17/24 fluticasone propionate 50 2 spray intranasal DAILY #16 grams 03/17/24 mcg/actuation nasal spray,suspension (Flonase Allergy Relief) ondansetron 4 mg disintegrating 4 mg PO Q6H PRN nausea and 03/29/24 tablet vomiting #7 tabs Allergies Allergy/AdvReac Type Severity Reaction Status Date / Time amoxicillin (AMOXICILLIN) AdvReac Mild Gastrointestinal Verified 12/11/23 09:15 Upset Penicillins AdvReac Mild Gastrointestinal Verified 12/11/23 09:15 Upset PFSH PFSH Disclaimer: The information contained in this section may have been updated after the patient was seen, as this information can be updated by other users. 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) Smoking Status: Current every day smoker tobacco type: e-cigarettes second hand exposure: No alcohol intake: never counseling given: No substance use type: denies use counseling given: No current occupational status: employed adopted: No caregiver/support person: No foster care: No household members: family housing: house lives independently: No marital status: single number of children: 0 education level: high school current occupational exposures/hazards: No caffeine: Yes physical activity: none working smoke detector in home: Yes fire extinguisher in home: No carbon monox detector in home: Yes firearms in home: Yes firearms unloaded and locked: Yes do you feel safe at home: Yes victim of physical abuse: No victim of emotional abuse: No victim of sexual abuse: No would you like helpful sources: No Other 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 Have you received the Flu Vaccine for this season: No Have you received the Pneumonia Vaccine: No ROS Obtained: Yes Systems reviewed as appropriate & no additional complaints except as documented ROS per HPI Physical Exam General General appearance: alert and in no apparent distress Head Head exam: atraumatic and normocephalic Eye Eye exam: Present PERRL and EOMI ENT ENT exam: Present mucous membranes moist Neck Neck exam: Present normal inspection and full ROM Chest Chest inspection: Present symmetric chest wall rise; Absent tenderness Respiratory Respiratory exam: Present normal lung sounds bilaterally; Absent respiratory distress, wheezes or stridor Cardiovascular Cardiovascular exam: Present regular rate and normal rhythm Abdominal Exam Abdominal exam: Present soft; Absent distention, tenderness, guarding or rebound Comment: No abdominal discomfort or tenderness with palpation Extremities Exam Extremities exam: Present full ROM Back Exam Back exam: Absent CVA tenderness (R) or CVA tenderness (L) Neurological Exam Neurological exam: Present alert and oriented X3; Absent motor sensory deficit Psychiatric Psychiatric exam: Present normal affect and normal mood Skin Skin exam: Present warm and dry Medical Decision Making Medical Records Medical records reviewed: Yes I reviewed the patient's medical records. Screening: Per USPSTF and CDC recommendations, given the prevalence of disease in our region, it is our hospital?s policy to screen for HIV and viral Hepatitis for all patients aged 18 and over and those with ongoing risk factors. MR Comment: Patient has had multiple evaluations in the urgent care and ER. She has recently had urinary tract infection, otitis media, she has also been evaluated multiple times for abdominal pain. CT imaging from October was reviewed demonstrating patient had a normal gallbladder, no stones at that time, she did have ovarian cyst patient does not have any pelvic pain today. Kulwant Inquiry Pt receiving controlled substance: No Vital Signs: 03/28/24 23:19 03/28/24 23:23 Temperature 97.6 F Temperature Source Oral Pulse Rate 99 H Pulse Rate [Left Radial] 99 H Respiratory Rate 18 Blood Pressure [Right Arm] 126/90 Blood Pressure Mean [Right Arm] 102 Blood Pressure Source [Right Arm] Automatic Cuff Blood Pressure Position [Right Arm] Sitting 02 Sat by Pulse Oximetry 99 Oxygen Delivery Method Room Air Lab Data Lab Results 03/28/24 23:18: WBC 13.1 H, RBC 4.92, Hgb 15.1, Hct 44.6, MCV 90.6, MCH 30.8, MCHC 34.0, RDW 13.7, Plt Count 392, MPV 8.4, Neut % (Auto) 51.1, Lymph % (Auto) 39.0, [place] % (Auto) 6.0, Eos % (Auto) 2.0, Baso % (Auto) 1.8, Neut # (Auto) 6.7, Lymph # (Auto) 5.1 H, [place] # (Auto) 0.8, Eos # (Auto) 0.3, Baso # (Auto) 0.2, Sodium 143, Potassium 3.5, Chloride 105, Carbon Dioxide 27, Anion Gap 14.5, BUN 24 H, Creatinine 0.80, Estimated Creat Clear 170, Estimated GFR 90, Est GFR ( Amer) 109, Glucose 103 H, Calcium 9.3, Total Bilirubin 0.4, AST 71 H, ALT 43, Alkaline Phosphatase 151 H, Troponin I < 0.01, Total Protein 8.8 H, Albumin 5.0, Globulin 3.8 H, Albumin/Globulin Ratio 1.3, Serum HCG, Qual Negative, HIV 1&2 Antibody Rapid Nonreactive 03/29/24 03:03: Troponin I < 0.01 03/28/24 23:18 03/28/24 23:18 Orders (Tests/Meds): ED MEDICATIONS Discontinued Medications Generic Name Dose Route Start Last Admin Trade Name Freq PRN Reason Stop Dose Admin Aspirin 324 mg 03/28/24 23:38 03/29/24 00:00 Aspirin 81mg Chewable Tablet PO 03/28/24 23:39 324 mg ONCE ONE Administration Belladonna Alkaloids 60 ml 03/29/24 00:36 03/29/24 00:48 Belladonna Alkaloids 60 Ml Ml PO 03/29/24 00:37 60 ml ONCE ONE Administration Hydroxyzine Pamoate 25 mg 03/28/24 23:38 03/29/24 00:01 Hydroxyzine Pamoate 25mg Capsule PO 03/28/24 23:39 25 mg ONCE ONE Administration Ondansetron HCl 4 mg 03/29/24 00:36 03/29/24 00:48 Ondansetron 4mg/2ml Vial IV 03/29/24 00:37 4 mg ONCE ONE Administration ORDERS Category Date Time Status XR chest 2V Stat Exams 03/28/24 23:38 Completed Complete Blood Count Auto Diff Stat Lab 03/28/24 23:18 Completed Comprehensive Metabolic Panel Stat Lab 03/28/24 23:18 Completed HCG Qualitative, Serum Stat Lab 03/28/24 23:18 Completed HIV (1&2) Antibody Rapid Stat Lab 03/28/24 23:18 Completed Hep C Ab with Reflex to RNA Stat Lab 03/28/24 23:18 Received Troponin I Q3H Lab 03/29/24 03:03 Completed Troponin I Q3H Lab 03/29/24 05:45 Ordered Troponin I Stat Lab 03/28/24 23:38 Completed Medical Decision Narrative: In summary, this 24-year-old female presents to the emergency department today with chest pain. On initial evaluation patient is hemodynamically stable, afebrile, pain has improved and is now just pressure on arrival, she is also complaining of nausea, abdominal exam is completely benign without any tenderness, cardiopulmonary exam benign. Differential diagnosis includes but is not limited to , viral syndrome, esophageal spasm, ACS, I considered PE but patient is PERC negative, electrolyte abnormality dehydration, musculoskeletal pain. Based on these concerns, I ordered serum labs, cardiac workup, chest x-ray, test. ECG personally interpreted demonstrates sinus tachycardia, rate rate 100, normal axis, normal DC and QTc, no STEMI. Patient received aspirin, hydroxyzine initially for treatment. Later, patient complained of persistent nausea but no pain, she received ondansetron and GI cocktail. Labs personally reviewed demonstrate mild leukocytosis, no anemia, test negative, trace elevation in alkaline phosphatase and AST, patient has had elevated AST in the past, alkaline phosphatase is nonspecific and without right upper quadrant tenderness I do not have high suspicion for biliary pathology. Initial troponin undetectably low at less than 0.01. XR personally interpreted demonstrates very small opacity in the right lower lung, nonspecific, in the absence of fever unlikely to be infectious, see radiology read for final interpretation. Patient placed into ED observation at 0030 for serial troponins to rule out evolving VA and preclude unnecessary admission. Patient continue to be monitored on the monitor technician without concerning changes in her vitals. Her pain and nausea were resolved. She is tolerating oral intake. Repeat troponin also undetectably low less than 0.01. At this time patient is appropriate for discharge. I prescribed Zofran for outpatient management. I encouraged her to follow-up closely with her primary care doctor and gave her return precautions for the ER. She indicated understanding and the patient was discharged in stable condition. Total time in ED observation: 3 hours 15 minutes Critical Care Critical Care Time Critical Care Time: No
[2024-03-29 03:37] LABS: Troponin I < 0.01 ng/ml (0.00-0.034)
[2024-03-29 03:45] VITALS: BP 114/81; PULSE 85; RESP 22; TEMP 36.4; O2SAT 97
[2024-03-30 08:12] LABS: HCV Ab Non Reactive (Non Reactive)
== END 2024-03-29 03:53 | disposition home or self-care (01) ==
PROVIDERS: Emergency Provider Emergency Medicine
DX: R07.9 Chest pain, unspecified (principal); R11.0 Nausea
CPT/HCPCS: 71046; 80053; 84484; 84703; 85025; 86803; 87389; 93005; 96374; 99284; J2405

== ENCOUNTER 2024-06-07 13:30 | Emergency (ER) | payer OTHER, SELFPAY ==
[2024-06-07 14:12] VITALS: BP 121/85; PULSE 115; RESP 18; TEMP 36.8; O2SAT 98; BMI 34.0
[2024-06-07 14:23] LABS: UTC Influenza A Antigen Negative (Negative); UTC Influenza B Antigen Negative (Negative)
[2024-06-07 14:28] LABS: UTC Strep Screen (Rapid) Negative (Negative)
--- NOTE | 2024-06-07 14:37 | EXP.UTC ---
Discharge Plan Disposition Patient Disposition: Home, Self-Care Condition: Good Prescriptions Prescriptions: No Action azelastine 137 mcg (0.1 %) spray,non-aerosol 1 spray intranasal BID Qty: 30 3RF Rx Instructions: administer into each nostril levocetirizine [Xyzal] 5 mg tablet 5 mg PO DAILY Qty: 30 3RF venlafaxine [Effexor XR] 37.5 mg capsule,extended release 24hr 37.5 mg PO DAILY Qty: 90 0RF Vraylar 1.5 mg capsule 1.5 mg PO DAILY Patient Comments: TAKE 1 CAPSULE BY MOUTH ONCE DAILY Referrals Follow up/Referrals: Loi Simpson APRN [Primary Care Provider] - See instructions Activity Restrictions/Add. Instructions Additional Instructions/Restrictions: No sign of a bacterial infection. Likely viral. Viruses can take 7-14 days to run their course. Nasal saline and bulb syringe or nose Michelle to remove nasal drainage to help with nasal congestion. Hard to eat, drink, sleep with nasal congestion so important to keep this cleaned out. Monitor temp. Tylenol or Motrin as needed for pain or fever Encourage fluids, water, Gatorade, Powerade, Pedialyte if /toddler/child Warm salt water gargles Warm fluids Sore throat lozenges Sleep elevated Humidifier/vaporizer Follow-up immediately for new or worsening symptoms or no noticeable improvement over the next 48-72 hours. Clinical Impressions Clinical Impression: Upper respiratory infection, viral Instructions Patient Instructions: DI for Viral Upper Respiratory Infection -- Adult Print Language Print Language: Tanzanian Discharge ED Provider: Shawna ([facility])Amie [facility] [place] General Stated complaint: st chan nausea diarrhea vomiting Mode of Arrival: Ambulatory Source of Information: Patient Time Seen by Provider: 06/07/24 14:37 Description of Symptoms (Recalled from Triage Doc. by RN): COUGH, SORE THROAT, N/V, CHAN HEENT Symptoms (Recalled from RN notes): Yes Resp Symptoms (Recalled from RN notes): Yes Skin Symptoms (Recalled from RN notes): No MS Symptoms (Recalled from RN notes): No Functional Status (Recalled from RN notes): WNL History of Present Illness Provider Complaint: 24-year-old female presents for complaints of cough, sore throat, nausea vomiting, and headache that started last night Related Data Home Medications ?Medication ?Instructions ?Recorded ?Confirmed cariprazine 1.5 mg capsule 1.5 mg PO DAILY 03/17/24 06/07/24 (Vraylar) Previous Rx's ?Medication ?Instructions ?Recorded venlafaxine 37.5 mg 37.5 mg PO DAILY Depression #90 01/30/24 capsule,extended release 24 hr caps (Effexor XR) azelastine 137 mcg (0.1 %) nasal 1 spray intranasal BID #30 mL 05/08/24 spray levocetirizine 5 mg tablet (Xyzal) 5 mg PO DAILY #30 tabs 05/08/24 Allergies Allergy/AdvReac Type Severity Reaction Status Date / Time amoxicillin (AMOXICILLIN) AdvReac Mild Gastrointestinal Verified 12/11/23 09:15 Upset Penicillins AdvReac Mild Gastrointestinal Verified 12/11/23 09:15 Upset Worker's Comp Is this a Worker's Comp case?: No PFS PFS Disclaimer: The information contained in this section may have been updated after the patient was seen, as this information can be updated by other users. 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) Smoking Status: Current every day smoker tobacco type: e-cigarettes second hand exposure: No alcohol intake: never counseling given: No substance use type: denies use counseling given: No current occupational status: employed Travel in the last 8 weeks: None adopted: No caregiver/support person: No foster care: No household members: family housing: house lives independently: No marital status: single number of children: 0 education level: high school current occupational exposures/hazards: No caffeine: Yes physical activity: none working smoke detector in home: Yes fire extinguisher in home: No carbon monox detector in home: Yes firearms in home: Yes firearms unloaded and locked: Yes do you feel safe at home: Yes victim of physical abuse: No victim of emotional abuse: No victim of sexual abuse: No would you like helpful sources: No Have you lived/traveled outside [place] in past 30 days?: No Contact w/someone who lives/traveled outside [place] past 30 days?: No Exposure to someone with infectious disease in past 14 days?: Yes Do you have a fever (greater than 100.4 F or 38 C)?: Yes Have you tested positive for COVID-19: No Exposed to someone with COVID-19 in past 14 days?: No Do you have a sore throat?: Yes Do you have a cough?: No Do you have any weakness?: No Do you have any diarrhea?: Yes Are you experiencing any unusual bleeding?: No Do you have any muscle aches/pain?: No Do you have any abdominal pain?: No Are you experiencing loss of taste or smell?: No ROS Obtained: Yes Systems reviewed as appropriate & no additional complaints except as documented Physical Exam General General appearance: alert and in no apparent distress Eye Eye exam: Present normal appearance ENT ENT exam: Present normal exam, normal oropharynx, mucous membranes moist and TM's normal bilaterally Respiratory Respiratory exam: Present normal lung sounds bilaterally Cardiovascular Cardiovascular exam: Present regular rate and normal rhythm Abdominal Exam Abdominal exam: Present soft and normal bowel sounds Neurological Exam Neurological exam: Present alert and oriented X3 Skin Skin exam: Present warm and intact Medical Decision Making Medical Records Medical records reviewed: Yes I reviewed the patient's medical records. Screening: Per USPSTF and CDC recommendations, given the prevalence of disease in our region, it is our hospital?s policy to screen for HIV and viral Hepatitis for all patients aged 18 and over and those with ongoing risk factors. Kulwant Inquiry Pt receiving controlled substance: No Kulwant was queried for this patient: No Vital Signs: 06/07/24 14:12 Temperature 98.3 F Temperature Source Oral Pulse Rate [Left Radial] 115 H Respiratory Rate 18 Blood Pressure [Left Arm] 121/85 Blood Pressure Mean [Left Arm] 97 02 Sat by Pulse Oximetry 98 Lab Data Lab results reviewed: Yes I reviewed the patient's lab results. Lab Results 06/07/24 14:14: Strep Scn Rapid Clinic Negative 06/07/24 14:15: Influenza Type A Ag Negative, Influenza Type B Ag Negative Orders (Tests/Meds): ORDERS Category Date Time Status Strep Screen Confirmation Stat Micro 06/07/24 14:14 Received
[2024-06-07 14:48] VITALS: BP 121/85; PULSE 115; RESP 18; TEMP 36.8
[2024-06-07 16:40] LABS: Coronavirus 19, PCR Not Detected (NotDetected); Influenza B, PCR Not Detected (NotDetected)
[2024-06-07 17:06] LABS: Influenza A, PCR Detected (NotDetected)
== END 2024-06-07 14:52 | disposition home or self-care (01) ==
PROVIDERS: Emergency Provider Nurse Practitioner Family; PCP Nurse Practitioner Family
DX: J06.9 Acute upper respiratory infection, unspecified (principal)
CPT/HCPCS: 87636; 87804; 87880; 99213; G0381

== ENCOUNTER 2024-06-17 10:00 | Outpatient (CLI) | payer OTHER, SELFPAY ==
[2024-06-17 15:54] LABS: Coronavirus 19, PCR Not Detected (NotDetected); Human Rhinovirus Not Detected (NotDetected); Influenza A, PCR Not Detected (NotDetected); Influenza B, PCR Not Detected (NotDetected); Respiratory Syncytial Virus Not Detected (NotDetected)
== END 2024-06-17 23:59 | disposition home or self-care (01) ==
LOC: LAB.DROPOF 06-18 11:03
PROVIDERS: PCP Student in an Organized Health Care Education/Training Program; Visit Provider Student in an Organized Health Care Education/Training Program
DX: R05.9 Cough, unspecified (principal); R50.9 Fever, unspecified; J02.9 Acute pharyngitis, unspecified
CPT/HCPCS: 87631

== ENCOUNTER 2024-06-30 06:25 | Emergency (ER) | payer OTHER, SELFPAY ==
[2024-06-30 06:27] VITALS: BP 142/87; PULSE 86; RESP 18; TEMP 37; O2SAT 97; BMI 34.7
[2024-06-30] MEDS: ONDANSETRON 4MG/2ML VIAL 4 MG IV (06:46)
[2024-06-30] MEDS: ACETAMINOPHEN 500MG TAB 1000 MG PO (06:46)
[2024-06-30] MEDS: LACTATED RINGERS 1000ML 1,000 ML 999 ML IV (06:46)
--- NOTE | 2024-06-30 06:47 | HMH.EDGENADL ---
Discharge Plan Disposition Patient Disposition: Home, Self-Care Prescriptions Prescriptions: New loperamide 2 mg capsule 2 mg PO Q6H PRN (Reason: loose stool) 5 Days Qty: 20 0RF Rx Instructions: Please take 4 mg initially, followed by 2 mg after each loose stool, maximum 16 mg/day ondansetron 4 mg tablet,disintegrating 4 mg PO Q6H PRN (Reason: nausea and vomiting) 5 Days Qty: 20 0RF No Action levocetirizine [Xyzal] 5 mg tablet 5 mg PO DAILY Qty: 30 3RF meclizine 12.5 mg tablet 12.5 mg PO TID PRN (Reason: dizziness) Qty: 10 0RF ondansetron 4 mg tablet,disintegrating 4 mg PO Q8H PRN (Reason: nausea and vomiting) Qty: 10 0RF venlafaxine [Effexor XR] 37.5 mg capsule,extended release 24hr 37.5 mg PO DAILY Qty: 90 0RF Vraylar 1.5 mg capsule 1.5 mg PO DAILY Patient Comments: TAKE 1 CAPSULE BY MOUTH ONCE DAILY Referrals Follow up/Referrals: Loi Simpson APRN [Primary Care Provider] - See instructions Activity Restrictions/Add. Instructions Additional Instructions/Restrictions: Please return with any significant or persistent abdominal pain or inability to keep fluids down. Clinical Impressions Clinical Impression: Nausea vomiting and diarrhea Instructions Patient Instructions: DI for Acute Abdominal Pain Print Language Print Language: Mohawk Discharge ED Provider: Daren Ewing Adult HPI <Daren Ewing MD - Last Filed: 06/30/24 07:26> General Chief complaint: Abdominal Pain Stated complaint: abd pain, vomiting Time Seen by Provider: 06/30/24 06:27 Mode of Arrival: Ambulatory Source of Information: Patient Limitations: No Limitations Description of Symptoms (Recalled from ER Triage Doc. by RN): Pt to ED with c/o 10/10 diffuse abd pain that started @0300 this morning, as well as N/V/D History of Present Illness HPI narrative: 24-year-old female with no reported past medical history, though extensive visit history, presents with nausea vomiting diarrhea and abdominal pain. She reports it started at 3 AM. She reports she has been unable to eat or drink anything since then. She reports 10 out of 10 right upper quadrant abdominal pain. Related Data Home Medications ?Medication ?Instructions ?Recorded ?Confirmed cariprazine 1.5 mg capsule 1.5 mg PO DAILY 03/17/24 06/17/24 (Vraylar) Previous Rx's ?Medication ?Instructions ?Recorded venlafaxine 37.5 mg 37.5 mg PO DAILY Depression #90 01/30/24 capsule,extended release 24 hr caps (Effexor XR) levocetirizine 5 mg tablet (Xyzal) 5 mg PO DAILY #30 tabs 05/08/24 meclizine 12.5 mg tablet 12.5 mg PO TID PRN dizziness #10 06/17/24 tabs ondansetron 4 mg disintegrating 4 mg PO Q8H PRN nausea and 06/17/24 tablet vomiting #10 tabs loperamide 2 mg capsule 2 mg PO Q6H PRN loose stool 5 days 06/30/24 #20 caps ondansetron 4 mg disintegrating 4 mg PO Q6H PRN nausea and 06/30/24 tablet vomiting 5 days #20 tabs Allergies Allergy/AdvReac Type Severity Reaction Status Date / Time amoxicillin (AMOXICILLIN) AdvReac Mild Gastrointestinal Verified 06/17/24 09:45 Upset Penicillins AdvReac Mild Gastrointestinal Verified 06/17/24 09:45 Upset PFSH <Daren Ewing MD - Last Filed: 06/30/24 07:26> PFS Disclaimer: The information contained in this section may have been updated after the patient was seen, as this information can be updated by other users. 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 Left serous otitis media Mood disorder Right ovarian cyst Acne Pelvic pain PCOS (polycystic ovarian syndrome) Thyroid disease History of anemia History of gastroesophageal reflux (GERD) Insomnia Migraine Surgical History History of esophagogastroduodenoscopy (EGD) History of tympanostomy tube placement Family History Other Diabetes Social History (Updated 06/17/24 @ 09:46 by AMY Borges) Smoking Status: Current every day smoker second hand exposure: No alcohol intake: never counseling given: No substance use type: denies use counseling given: No current occupational status: employed Travel in the last 8 weeks: None adopted: No caregiver/support person: No foster care: No household members: family housing: house lives independently: No marital status: single number of children: 0 education level: high school current occupational exposures/hazards: No caffeine: Yes physical activity: none working smoke detector in home: Yes fire extinguisher in home: No carbon monox detector in home: Yes firearms in home: Yes firearms unloaded and locked: Yes do you feel safe at home: Yes victim of physical abuse: No victim of emotional abuse: No victim of sexual abuse: No would you like helpful sources: No Have you lived/traveled outside [place] in past 30 days?: No Contact w/someone who lives/traveled outside [place] past 30 days?: No Exposure to someone with infectious disease in past 14 days?: No Do you have a fever (greater than 100.4 F or 38 C)?: No Have you tested positive for COVID-19: No Exposed to someone with COVID-19 in past 14 days?: No Do you have a sore throat?: No Do you have a cough?: No Do you have any weakness?: No Do you have any diarrhea?: No Are you experiencing any unusual bleeding?: No Do you have any muscle aches/pain?: No Do you have any abdominal pain?: Yes Are you experiencing loss of taste or smell?: No Other 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 Have you received the Flu Vaccine for this season: No Have you received the Pneumonia Vaccine: No <Daren Ewing MD - Last Filed: 06/30/24 07:26> ROS Obtained: Yes All systems reviewed & no additional complaints except as documented Physical Exam <Daren Ewing MD - Last Filed: 06/30/24 07:26> General General appearance: alert and in no apparent distress Head Head exam: atraumatic and normocephalic Eye Eye exam: Present normal appearance, PERRL and EOMI ENT ENT exam: Present normal oropharynx and normal external ear exam Neck Neck exam: Present normal inspection and full ROM Chest Chest inspection: Present normal inspection and symmetric chest wall rise; Absent tenderness Respiratory Respiratory exam: Present normal lung sounds bilaterally; Absent respiratory distress Cardiovascular Cardiovascular exam: Present regular rate and normal rhythm Abdominal Exam Abdominal exam: Present soft and tenderness (Mild, right upper quadrant); Absent distention or guarding Extremities Exam Extremities exam: Present normal inspection; Absent edema or joint swelling Back Exam Back exam: Present normal inspection Neurological Exam Neurological exam: Present alert and oriented X3; Absent motor sensory deficit Psychiatric Psychiatric exam: Present normal affect and normal mood Skin Skin exam: Present warm, dry and normal color Lymphatic Lymphatic Findings: no adenopathy Medical Decision Making <Daren Ewing MD - Last Filed: 06/30/24 07:26> Medical Records Medical records reviewed: Yes I reviewed the patient's medical records. Screening: Per USPSTF and CDC recommendations, given the prevalence of disease in our region, it is our hospital?s policy to screen for HIV and viral Hepatitis for all patients aged 18 and over and those with ongoing risk factors. Kulwant Inquiry Pt receiving controlled substance: No Kulwant was queried for this patient: No Vital Signs: 06/30/24 06:27 Temperature 98.6 F Temperature Source Oral Pulse Rate [Left Radial] 86 Respiratory Rate 18 Blood Pressure [Right Arm] 142/87 H Blood Pressure Mean [Right Arm] 105 Blood Pressure Source [Right Arm] Automatic Cuff Blood Pressure Position [Right Arm] Supine 02 Sat by Pulse Oximetry 97 Oxygen Delivery Method Room Air Lab Data Lab results reviewed: Yes I reviewed the patient's lab results. Lab Results 06/30/24 06:38: WBC 13.2 H, RBC 4.71, Hgb 14.1, Hct 42.4, MCV 90.0, MCH 29.9, MCHC 33.3, RDW 13.1, Plt Count 424, MPV 10.6 H, Neut % (Auto) 61.7, Lymph % (Auto) 27.1, [place] % (Auto) 8.7, Eos % (Auto) 1.5, Baso % (Auto) 0.5, Neut # (Auto) 8.1 H, Lymph # (Auto) 3.6, [place] # (Auto) 1.2 H, Eos # (Auto) 0.2, Baso # (Auto) 0.1, Sodium 139, Potassium 3.9, Chloride 107, Carbon Dioxide 24, Anion Gap 11.9, BUN 21 H, Creatinine 0.80, Estimated Creat Clear 170, Estimated GFR 90, Est GFR ( Amer) 109, Glucose 109 H, Calcium 9.2, Total Bilirubin 0.5, AST 32, ALT 32, Alkaline Phosphatase 129 H, Total Protein 7.6, Albumin 4.8, Globulin 2.8, Albumin/Globulin Ratio 1.7, Lipase 68, Serum HCG, Qual Negative 06/30/24 06:38 06/30/24 06:38 Orders (Tests/Meds): ED MEDICATIONS Discontinued Medications Generic Name Dose Route Start Last Admin Trade Name Rakesh PRN Reason Stop Dose Admin Acetaminophen 1,000 mg 06/30/24 06:41 06/30/24 06:46 Acetaminophen 500mg Tab PO 06/30/24 06:42 1,000 mg ONCE ONE Administration Lactated Ringer's 1,000 mls @ 999 mls/hr 06/30/24 06:45 06/30/24 06:46 Lactated Ringer's 1000 Ml Bag IV 06/30/24 07:45 999 mls/hr .Q1H1M PAULINO Administration Ondansetron HCl 4 mg 06/30/24 06:41 06/30/24 06:46 Ondansetron 4mg/2ml Vial IV 06/30/24 06:42 4 mg ONCE ONE Administration ORDERS Category Date Time Status CBC w/Auto Diff [Complete Blood Count Auto Diff] Stat Lab 06/30/24 06:38 Completed CMP [Comprehensive Metabolic Panel] Stat Lab 06/30/24 06:38 Completed HCG Qualitative, Serum Stat Lab 06/30/24 06:38 Completed Lipase Stat Lab 06/30/24 06:38 Completed Medical Decision Narrative: 24-year-old female presents for nausea vomiting and diarrhea for the last several hours, now with 10 out of 10 right upper quadrant pain. History was obtained via interactive discussion with patient. On arrival, patient is [afebrile, hemodynamically stable, satting appropriately, alert, oriented x4, GCS 15], moving all extremities spontaneously. Full physical exam performed and significant for well-appearing patient without significant abdominal tenderness on exam Differential includes but is not limited to gastroenteritis, pancreatitis, cholecystitis,. Patient was given IV fluids, Zofran, Tylenol for symptomatic management and correction of underlying abnormalities. Workup initiated including CBC CMP lipase test. At this time care handed off to oncoming physician. <Blaise Celestin MD - Last Filed: 06/30/24 07:58> Vital Signs: 06/30/24 06:27 Temperature 98.6 F Temperature Source Oral Pulse Rate [Left Radial] 86 Respiratory Rate 18 Blood Pressure [Right Arm] 142/87 H Blood Pressure Mean [Right Arm] 105 Blood Pressure Source [Right Arm] Automatic Cuff Blood Pressure Position [Right Arm] Supine 02 Sat by Pulse Oximetry 97 Oxygen Delivery Method Room Air Lab Data Lab Results 06/30/24 06:38: WBC 13.2 H, RBC 4.71, Hgb 14.1, Hct 42.4, MCV 90.0, MCH 29.9, MCHC 33.3, RDW 13.1, Plt Count 424, MPV 10.6 H, Neut % (Auto) 61.7, Lymph % (Auto) 27.1, [place] % (Auto) 8.7, Eos % (Auto) 1.5, Baso % (Auto) 0.5, Neut # (Auto) 8.1 H, Lymph # (Auto) 3.6, [place] # (Auto) 1.2 H, Eos # (Auto) 0.2, Baso # (Auto) 0.1, Sodium 139, Potassium 3.9, Chloride 107, Carbon Dioxide 24, Anion Gap 11.9, BUN 21 H, Creatinine 0.80, Estimated Creat Clear 170, Estimated GFR 90, Est GFR ( Amer) 109, Glucose 109 H, Calcium 9.2, Total Bilirubin 0.5, AST 32, ALT 32, Alkaline Phosphatase 129 H, Total Protein 7.6, Albumin 4.8, Globulin 2.8, Albumin/Globulin Ratio 1.7, Lipase 68, Serum HCG, Qual Negative Orders (Tests/Meds): ED MEDICATIONS Discontinued Medications Generic Name Dose Route Start Last Admin Trade Name Freq PRN Reason Stop Dose Admin Acetaminophen 1,000 mg 06/30/24 06:41 06/30/24 06:46 Acetaminophen 500mg Tab PO 06/30/24 06:42 1,000 mg ONCE ONE Administration Lactated Ringer's 1,000 mls @ 999 mls/hr 06/30/24 06:45 06/30/24 06:46 Lactated Ringer's 1000 Ml Bag IV 06/30/24 07:45 999 mls/hr .Q1H1M PAULINO Administration Ondansetron HCl 4 mg 06/30/24 06:41 06/30/24 06:46 Ondansetron 4mg/2ml Vial IV 06/30/24 06:42 4 mg ONCE ONE Administration ORDERS Category Date Time Status CBC w/Auto Diff [Complete Blood Count Auto Diff] Stat Lab 06/30/24 06:38 Completed CMP [Comprehensive Metabolic Panel] Stat Lab 06/30/24 06:38 Completed HCG Qualitative, Serum Stat Lab 06/30/24 06:38 Completed Lipase Stat Lab 06/30/24 06:38 Completed Medical Decision Narrative: 24-year-old female presents for nausea vomiting and diarrhea for the last several hours, now with 10 out of 10 right upper quadrant pain. History was obtained via interactive discussion with patient. On arrival, patient is [afebrile, hemodynamically stable, satting appropriately, alert, oriented x4, GCS 15], moving all extremities spontaneously. Full physical exam performed and significant for well-appearing patient without significant abdominal tenderness on exam Differential includes but is not limited to gastroenteritis, pancreatitis, cholecystitis,. Patient was given IV fluids, Zofran, Tylenol for symptomatic management and correction of underlying abnormalities. Workup initiated including CBC CMP lipase test. At this time care handed off to oncoming physician. Reassessment 7:[address] Celestin I took over from Dr. Ewing patient feeling much better serial abdominal exams benign specifically no right upper quadrant abdominal pain or tenderness. Nausea medicine and diarrhea medicine sent to her pharmacy this is most likely a viral illness return precautions have incised patient was discharged in stable condition. Procedures <Daren Ewing MD - Last Filed: 06/30/24 07:26> Risk/Benefits of Procedure(s) Were Explained: Yes Critical Care <Daren Ewing MD - Last Filed: 06/30/24 07:26> Critical Care Time Critical Care Time: No
[2024-06-30 07:00] VITALS: BP 111/82; PULSE 76; O2SAT 99
[2024-06-30 07:01] LABS: Alanine Aminotransferase 32 U/L (12-78); Albumin Level 4.8 g/dl (3.5-5.0); Albumin/Globulin Ratio 1.7 (1.1-1.8); Alkaline Phosphatase 129 U/L (38-126); Anion Gap 11.9 mEq/L (5-15); Aspartate Amino Transferase 32 U/L (14-36); Bilirubin,Total 0.5 mg/dl (0.2-1.3); Blood Urea Nitrogen 21 mg/dl (7-17); Calcium 9.2 mg/dl (8.4-10.2); Carbon Dioxide 24 mmol/L (22.0-30.0); Chloride 107 mmol/L (98-107); Creatinine Clearance Estimated 170 mL/min (50-200); Estimated Glomerular Filt Rate 90 ml/min (>60); GFR (African American) 109 ML/MIN (>60); Globulin 2.8 g/dL (1.3-3.2); Glucose 109 mg/dl (74-100); Lipase 68 U/L (23-300); Potassium 3.9 mmoL/L (3.5-5.1); Sodium 139 mmol/L (136-145); Total Protein,Serum 7.6 g/dl (6.3-8.2)
[2024-06-30 07:09] LABS: Basophils # 0.1 K/mm3 (0-0.2); Basophils % 0.5 % (0.1-2.0); Eosinophils # 0.2 K/mm3 (0.0-0.4); Eosinophils % 1.5 % (0.1-12.0); Hematocrit 42.4 % (37.0-47.0); Hemoglobin 14.1 g/dL (12.2-16.2); Lymphocytes # 3.6 K/mm3 (0.7-4.5); Lymphocytes % 27.1 % (10-50); Mean Corpuscular HGB Conc 33.3 g/dL (31.8-35.4); Mean Corpuscular Hemoglobin 29.9 pg (27.0-31.2); Mean Platelet Volume 10.6 fl (7.4-10.4); Monocytes # 1.2 K/mm3 (0.1-1.0); Monocytes % 8.7 % (1.7-9.3); Neutrophils # 8.1 K/mm3 (1.8-7.8); Neutrophils % 61.7 % (37.0-80.0); Platelet Count 424 K/mm3 (142-424); Red Blood Count 4.71 M/mm3 (4.20-5.40); Red Cell Distribution Width 13.1 % (11.5-17.5); White Blood Count 13.2 K/mm3 (4.8-10.8)
[2024-06-30 07:14] LABS: HCG Qualitative, Serum Negative (Negative)
[2024-06-30 07:30] VITALS: BP 112/73; PULSE 70; O2SAT 98
--- NOTE | 2024-06-30 07:54 | PC.NURSE ---
dr daniels at bedside
[2024-06-30 08:00] VITALS: BP 127/85; PULSE 67; PULSE 70; RESP 18; TEMP 36.8; O2SAT 98
== END 2024-06-30 08:06 | disposition home or self-care (01) ==
PROVIDERS: Emergency Provider Emergency Medicine; PCP Nurse Practitioner Family
DX: R11.2 Nausea with vomiting, unspecified (principal); R10.11 Right upper quadrant pain; R19.7 Diarrhea, unspecified; R63.8 Other symptoms and signs concerning food and fluid intake; Z72.0 Tobacco use
CPT/HCPCS: 80053; 83690; 84703; 85025; 96361; 96374; 99283; J2405; J7120

== ENCOUNTER 2024-08-18 12:00 | Outpatient (CLI) | payer OTHER, SELFPAY ==
--- NOTE | 2024-08-18 12:03 | XR_ITS ---
FINAL REPORT TECHNIQUE: 3 views left wrist CLINICAL HISTORY: pain with movement COMPARISON: 08/29/2017 FINDINGS: AP, oblique, and lateral views of the left wrist were obtained. The appearance of the distal scaphoid is not significantly changed since the prior exam of 2018. There is a lucency in the mid scaphoid that most likely either represents a remote fracture or an accessory ossicle. There is no acute fracture or dislocation. The joint spaces are preserved. The soft tissues are normal. IMPRESSION: No acute osseous abnormality of the left wrist. The appearance of the distal scaphoid is not significantly changed since the prior exam of 2018. If pain persists, MR is recommended. Reviewed, Interpreted and Dictated by Minnie Munoz MD Transcribed by Sheryl Perez Authenticated and [facility]
--- NOTE | 2024-08-18 12:03 | XR_ITS ---
FINAL REPORT CLINICAL HISTORY: wrist pain, no trauma COMPARISON: None FINDINGS: AP, oblique, and lateral views of the right wrist were obtained. There is no prior exam for comparison. There is no acute fracture or dislocation. The joint spaces are preserved. The soft tissues are normal. IMPRESSION: No acute osseous abnormality of the right wrist. If pain persists, MR is recommended. Reviewed, Interpreted and Dictated by Minnie Munoz MD Transcribed by Sheryl Perez Authenticated and [facility]
== END 2024-08-18 23:59 | disposition home or self-care (01) ==
LOC: RAD 12:01
PROVIDERS: PCP Nurse Practitioner Family; Visit Provider Nurse Practitioner
DX: M25.531 Pain in right wrist (principal); M25.532 Pain in left wrist
CPT/HCPCS: 73110

== ENCOUNTER 2024-10-23 15:14 | Emergency (ER) | payer OTHER, SELFPAY ==
--- NOTE | 2024-10-23 15:17 | ED_ITS ---
<Statement entered by Milvia Coffey DO - 10/23/24 19:52> I was consulted by the PAULINE, and we discussed the complexity of the problems being addressed. I approved the treatment and management plan for this patient's care in the emergency department, thus performing a substantive portion of the medical decision making. Milvia Coffey DO Discharge Plan Disposition Patient Disposition: Home, Self-Care Condition: Good Prescriptions Prescriptions: No Action levocetirizine [Xyzal] 5 mg tablet 5 mg PO DAILY Qty: 30 3RF trazodone 50 mg tablet 50 mg PO DAILY Qty: 30 2RF aripiprazole [Abilify] 5 mg tablet 5 mg PO DAILY Qty: 30 2RF hydroxyzine pamoate 25 mg capsule 25 mg PO TID PRN (Reason: anxiety) Qty: 90 0RF loperamide 2 mg capsule 2 mg PO Q6H PRN (Reason: loose stool) 5 Days Qty: 20 0RF Rx Instructions: Please take 4 mg initially, followed by 2 mg after each loose stool, maximum 16 mg/day Referrals Follow up/Referrals: Loi Simpson APRN [Primary Care Provider, Family Practice] - See instructions Activity Restrictions/Add. Instructions Additional Instructions/Restrictions: As we discussed if you have recurrent symptoms I recommend starting with 800 mg of Motrin alternating every 4 hours with 1000 g of Tylenol. I will send some nausea medicine into your pharmacy. If you have worsening signs or symptoms follow-up with your PCP return to the ER as needed. Clinical Impressions Clinical Impression: Headache Qualifiers: Headache type: unspecified Headache chronicity pattern: acute headache I ntractability: not intractable Qualified Code(s): R51.9 - Headache, unspecified Print Language Print Language: Portuguese Discharge ED Provider: Milvia Coffey General Adult HPI General Chief complaint: Headache Stated complaint: Migraine,dizziness,pain bilateral arms Time Seen by Provider: 10/23/24 15:17 History of Present Illness HPI narrative: Patient presents for evaluation of a headache. Patient reports that she has had a headache since last night. She describes it as a frontal headache. She does not have phonophobia or photophobia. She does have a long history of headaches and exactly like this 1. She used to have them more frequently when she was younger but does not have them with near amount of frequency. She is not on no disease modifying medications. She does not have a headache specialist. She also reports that she has arm pain when she has headaches but she denies any numbness tingling loss of motor or sensory she is nauseated but has had no vomiting shortness of breath fever chills hemoptysis hematochezia melena hematemesis hematuria. Related Data Previous Rx's ?Medication ?Instructions ?Recorded levocetirizine 5 mg tablet (Xyzal) 5 mg PO DAILY #30 t abs 05/08/24 loperamide 2 mg capsule 2 mg PO Q6H PRN loose stool 5 days 06/30/24 #20 caps aripiprazole 5 mg tablet (Abilify) 5 mg PO DAILY #30 t abs 10/07/24 hydroxyzine pamoate 25 mg capsule 25 mg PO TID PRN anx iety #90 caps 10/07/24 trazodone 50 mg tablet 50 mg PO DAILY #30 tabs 09/28 Allergies Allergy/AdvReac Type Severity Reaction Status Date / Time amoxicillin (AMOXICILLIN) AdvReac Mild Gastrointestinal Verified 10/07/24 10:36 Upset Penicillins AdvReac Mild Gastrointestinal Verified 10/07/24 10:36 Upset PFSH PFSH Disclaimer: The information contained in this section may have been updated after the patient was seen, as this information can be updated by other users. 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 Wrist pain Wrist pain Left serous otitis media Mood disorder Right ovarian cyst Acne Pelvic pain PCOS (polycystic ovarian syndrome) Thyroid disease History of anemia History of gastroesophageal reflux (GERD) Insomnia Migraine Surgical History History of esophagogastroduodenoscopy (EGD) History of tympanostomy tube placement Family History Other Diabetes Social History Smoking Status: Current every day smoker second hand exposure: No alcohol intake: never counseling given: No substance use type: denies use counseling given: No current occupational status: employed Travel in the last 8 weeks?: None adopted: No caregiver/support person: No foster care: No household members: family housing: house lives independently: No marital status: single number of children: 0 education level: high school current occupational exposures/hazards: No caffeine: Yes physical activity: none working smoke detector in home: Yes fire extinguisher in home: No carbon monox detector in home: Yes firearms in home: Yes firearms unloaded and locked: Yes do you feel safe at home: Yes victim of physical abuse: No victim of emotional abuse: No victim of sexual abuse: No would you like helpful sources: No Have you lived/traveled outside [place] in past 30 days?: No Contact w/someone who lives/traveled outside US past 30 days?: No Exposure to someone with infectious disease in past 14 days?: No Do you have a fever (greater than 100.4 F or 38 C)?: No Have you tested positive for COVID-19?: No Exposed to someone with COVID-19 in past 14 days?: No Do you have a sore throat?: No Do you have a cough?: No Do you have any weakness?: No Do you have any diarrhea?: No Are you experiencing any unusual bleeding?: No Do you have any muscle aches/pain?: No Do you have any abdominal pain?: No Are you experiencing loss of taste or smell?: No Other 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 Have you received the Flu Vaccine for this season: No Have you received the Pneumonia Vaccine: No ROS Obtained: Yes Systems reviewed as appropriate & no additional complaints except as documented Physical Exam General General appearance: alert and in no apparent distress Respiratory Respiratory exam: Present normal lung sounds bilaterally Cardiovascular Cardiovascular exam: Present regular rate Neurological Exam Neurological exam: Present alert, oriented X3, CN II-XII intact and normal gait; Absent motor sensory deficit Medical Decision Making Medical Records Medical records reviewed: Yes I reviewed the patient's medical records. Screening: Per USPSTF and CDC recommendations, given the prevalence of disease in our region, it is our hospital?s policy to screen for HIV and viral Hepatitis for all patients aged 18 and over and those with ongoing risk factors. Kulwant Inquiry Pt receiving controlled substance: No Vital Signs: 10/23/24 15:22 10/23/24 15:30 10/23/24 15:45 Temperature 98.5 F Temperature Source Oral Pulse Rate 93 H 76 Pulse Rate [Left] 103 H Respiratory Rate 19 19 17 Blood Pressure 137/84 Blood Pressure [Right Arm] 149/103 H Blood Pressure Mean 101 Blood Pressure Mean [Right Arm] 118 Blood Pressure Source [Right Arm] Automatic Cuff 02 Sat by Pulse Oximetry 99 99 98 Oxygen Delivery Method Room Air Room Air Room Air 10/23/24 16:01 10/23/24 16:47 Temperature 98.1 F Temperature Source Pulse Rate 82 82 Pulse Rate [Left] Respiratory Rate 18 Blood Pressure 115/73 120/78 Blood Pressure [Right Arm] Blood Pressure Mean 87 Blood Pressure Mean [Right Arm] Blood Pressure Source [Right Arm] 02 Sat by Pulse Oximetry 97 Oxygen Delivery Method Lab Data Lab results reviewed: Yes I reviewed the patient's lab results. Lab Results 10/23/24 15:35: WBC 10.3, RBC 4.34, Hgb 13.7, Hct 39.5, MCV 91.0, MCH 31.6 H, MCHC 34.7, RDW 12.6, Plt Count 386, MPV 10.4, Neut % (Auto) 55.7, Lymph % (Auto) 31.5, Gooding % (Auto) 9.0, Eos % (Auto) 2.7, Baso % (Auto) 0.8, Neut # (Auto) 5.7, Lymph # (Auto) 3.2, Gooding # (Auto) 0.9, Eos # (Auto) 0.3, Baso # (Auto) 0.1, Sodium 139, Potassium 3.5, Chloride 103, Carbon Dioxide 24, Anion Gap 15.5 H, BUN 15, Creatinine 0.70, Estimated Creat Clear 199, Estimated GFR 105, Est GFR ( Amer) 127, Glucose 125 H, Calcium 9.0, Total Bilirubin 0.3, AST 32, ALT 28, Alkaline Phosphatase 122, Total Protein 7.5, Albumin 4.5, Globulin 3.0, Albumin/Globulin Ratio 1.5, Serum HCG, Qual Negative 10/23/24 15:35 10/23/24 15:35 Orders (Tests/Meds): ED MEDICATIONS Discontinued Medications Generic Name Dose Route Start Last Admin Trade Name Freq PRN Reason Stop Dose Admin Dexamethasone Sodium Phosphate 10 mg 10/23/24 15:22 10/23/24 15:38 Dexamethasone 4mg/Ml 5ml Mdv IV 10/23/24 15:23 10 mg ONCE ONE Administration Diphenhydramine HCl 50 mg 10/23/24 15:22 10/23/24 15:37 Diphenhydramine 50mg/Ml Vial IV 10/23/24 15:23 50 mg ONCE ONE Administration Sodium Chloride 1,000 mls @ 999 mls/hr 10/23/24 15:22 10/23/24 15:37 Sod Chlor 0.9% 1000ml Bag IV 10/23/24 16:22 999 mls/hr .Q1H1M ONE Administration Ketorolac Tromethamine 15 mg 10/23/24 15:22 10/23/24 15:38 Ketorolac 30mg/Ml Vial IV 10/23/24 15:23 15 mg ONCE ONE Administration Methocarbamol 500 mg 10/23/24 15:22 10/23/24 15:38 Methocarbamol 500mg Tablet PO 10/23/24 15:23 500 mg ONCE ONE Administration Prochlorperazine Edisylate 5 mg 10/23/24 15:22 10/23/24 15:37 Prochlorperazine 10mg/2ml Vial IV 10/23/24 15:23 5 mg ONCE ONE Administration ORDERS Category Date Time Status CBC w/Auto Diff [Complete Blood Count Auto Diff] Stat Lab 10/23/24 15:35 Completed CMP [Comprehensive Metabolic Panel] Stat Lab 10/23/24 15:35 Completed HCG Qualitative, Serum Stat Lab 10/23/24 15:35 Completed Medical Decision Narrative: In summary patient is a 24-year-old female who presents to the emergency department for evaluation of frontal headache. Patient is initially slightly hypertensive with a blood pressure 149/103 slightly tachycardic with heart rate of 103 with sinus tachycardia on the bedside monitor breathing 19 times minute satting at 99% on room air upon arrival, afebrile at 98.5. Physical exam is remarkable for pupils being round reactive to light, cranial nerves II through XII intact grossly to exam, extraocular movements intact without pain, C-spine is nontender to palpation, she has full range of motion of her C-spine without pain, she has no nuchal rigidity. She is ambulatory in the ER moves all 4 extremities spontaneously and has no focal neurologic deficits.. Differential diagnosis includes sinus headache versus atypical migraine headache etc. Initial workup will be conducted with hematologic labs. However also considered FAUST for intracranial lesion vascular abnormalities etc. however this is very typical of her previously known frequent headaches and she displays no red flags to indicate alternative diagnoses so alternative diagnoses were not pursued. Initial interventions include migraine cocktail crystalloid bolus. Initial workup reviewed by me shows her hematologic labs are nonactionable. Upon repeat evaluation patient had complete resolution of her headache after initial intervention. Given this patient is appropriate for discharge with follow-up with her PCP for any new or worsening symptoms or return to the ER as needed. I will send in a prescription for Zofran to her pharmacy. Critical Care Critical Care Time Critical Care Time: Yes Attestation: On 10/23/24, the high probability of a clinically significant, sudden or life threatening deterioration of the following system(s) required my full and direct attention, intervention and personal management. The time I documented below is in addition to time spent performing reported procedures but includes the following listed in this critical care notation. Total Time Total Critical Care Time: 30
[2024-10-23 15:22] VITALS: BP 149/103; PULSE 103; RESP 19; TEMP 36.9; O2SAT 99; BMI 35.5
--- OUTSIDE RECORDS SUMMARY | 2024-10-23 15:28 | XMS_ITS | Clinical Summary ---
Author Organization [facility] Address [address] [place] [address] Phone Care Team Providers Care Clinical Program Manager Name Role Phone Unavailable Primary Care Provider Unavailabl e Allergies Active Allergy Reactions Criticality Noted Date Comments Amoxicillin Other (See Comments) 02/14/2021 Unknown Medications FLUoxetine (PROZAC) 40 mg Oral Capsule Take 40 mg by mouth daily. Active 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 Date Comments Anxiety Depression Social History Tobacco Use Types Packs/Day Years Used Date Smoking Tobacco: Never Assessed Comments No Sex and Gender Information Value Date Recorded Sex Assigned at Not on file Legal Sex Female 7:42 PM EDT Gender Identity Not on file Sexual Orientation Not on file Obstetrics History Last Filed Vital Signs Vital Sign Reading Time Taken Comments Blood Pressure 124/88 02/14/2021 7:48 PM EDT Pulse 99 02/14/2021 7:48 PM EDT Temperature 36.3 C (97.3 F) 02/14/2021 7:48 PM EDT Respiratory Rate 16 02/14/2021 7:48 PM EDT Oxygen Saturation 99% 02/14/2021 7:44 PM EDT Inhaled Oxygen Concentration - - Weight 77.1 kg (170 lb) 02/14/2021 7:48 PM EDT Height 170.2 cm (5' 7 ) 02/14/2021 9:17 PM EDT Body Mass Index 26.63 02/14/2021 7:48 PM EDT Plan of Treatment Health Maintenance Due Date Last Done Comments Annual Wellness Exam 2005 HPV (2 - 2-dose series) 05/14/2014 11/11/2013 Meningococcal B Vaccine (1 of 2 - Standard) 2018 Cervical Cancer Screening 2023 Pap Smear 2023 DTaP/TDaP/Td (7 - Td or Tdap) 11/12/2023 11/11/2013, 03/14/2006, 09/03/2003, Additional history exists COVID-19 Vaccine ( season) 2023 11/09/2020, 10/12/2020 Influenza Vaccine (Season Ended) 2024 Hepatitis B Vaccine Completed 2002, 2002, 2002 Pneumococcal Vaccine 0-49 Aged Out No longer eligible based on patient's age to complete this topic Insurance [facility] [id number] [facility] [id number]
[2024-10-23 15:30] VITALS: BP 137/84; PULSE 93; RESP 19; O2SAT 99
[2024-10-23] MEDS: diphenhydrAMINE 50MG/ML VIAL 50 MG IV (15:37)
[2024-10-23] MEDS: PROCHLORPERAZINE 10MG/2ML VIAL 5 MG IV (15:37)
[2024-10-23] MEDS: 0.9 % SODIUM CHLORIDE 1000ML 1,000 ML 999 ML IV (15:37)
[2024-10-23] MEDS: KETOROLAC 30MG/ML VIAL 15 MG IV (15:38)
[2024-10-23] MEDS: METHOCARBAMOL 500MG TABLET 500 MG PO (15:38)
[2024-10-23] MEDS: DEXAMETHASONE 4MG/ML 5ML MDV 10 MG IV (15:38)
[2024-10-23 15:43] LABS: Basophils # 0.1 K/mm3 (0-0.2); Basophils % 0.8 % (0.1-2.0); Eosinophils # 0.3 Kmm3 (0.0-0.4); Eosinophils % 2.7 % (0.1-12.0); Hematocrit 39.5 % (37.0-47.0); Hemoglobin 13.7 g/dL (12.2-16.2); Immature Granulocytes # 0.03 10^3uL; Immature Granulocytes % 0.3 %; Lymphocytes # 3.2 K/mm3 (0.7-4.5); Lymphocytes % 31.5 % (10-50); Mean Corpuscular HGB Conc 34.7 g/dL (31.8-35.4); Mean Corpuscular Hemoglobin 31.6 pg (27.0-31.2); Mean Platelet Volume 10.4 fl (7.4-10.4); Monocytes # 0.9 K/mm3 (0.1-1.0); Neutrophils # 5.7 K/mm3 (1.8-7.8); Neutrophils % 55.7 % (37.0-80.0); Nucleated Red Blood Cells # 0 10^3/uL; Nucleated Red Blood Cells % 0 %; Platelet Count 386 K/mm3 (142-424); Red Blood Count 4.34 M/mm3 (4.20-5.40); Red Cell Distribution Width 12.6 % (11.5-17.5); Red Cell Distribution Width-SD 41.8 fL; White Blood Count 10.3 K/mm3 (4.8-10.8)
[2024-10-23 15:45] VITALS: PULSE 76; RESP 17; O2SAT 98
[2024-10-23 15:50] LABS: Albumin Level 4.5 g/dl (3.5-5.0); Chloride 103 mmol/L (98-107); Potassium 3.5 mmoL/L (3.5-5.1); Sodium 139 mmol/L (136-145)
[2024-10-23 15:53] LABS: Alanine Aminotransferase 28 U/L (12-78); Albumin/Globulin Ratio 1.5 (1.1-1.8); Alkaline Phosphatase 122 U/L (38-126); Anion Gap 15.5 mEq/L (5-15); Aspartate Amino Transferase 32 U/L (14-36); Bilirubin,Total 0.3 mg/dl (0.2-1.3); Blood Urea Nitrogen 15 mg/dl (7-17); Carbon Dioxide 24 mmol/L (22.0-30.0); Creatinine Clearance Estimated 199 mL/min (50-200); Estimated Glomerular Filt Rate 105 ml/min (>60); GFR (African American) 127 ML/MIN (>60); Total Protein,Serum 7.5 g/dl (6.3-8.2)
[2024-10-23 15:54] LABS: Glucose 125 mg/dl (74-100)
[2024-10-23 16:01] VITALS: BP 115/73; PULSE 82; O2SAT 97
[2024-10-23 16:25] LABS: HCG Qualitative, Serum Negative (Negative)
[2024-10-23 16:47] VITALS: BP 120/78; PULSE 82; RESP 18; TEMP 36.7; O2SAT 97
== END 2024-10-23 16:49 | disposition home or self-care (01) ==
PROVIDERS: Physician Assistant; Emergency Provider Emergency Medicine; PCP Nurse Practitioner Family
DX: R51.9 Headache, unspecified (principal); R42 Dizziness and giddiness; F17.210 Nicotine dependence, cigarettes, uncomplicated; F41.9 Anxiety disorder, unspecified; F32.A Depression, unspecified
CPT/HCPCS: 80053; 84703; 85025; 96361; 96374; 96375; 99291; J0780; J1100; J1200; J1885; J7030

== ENCOUNTER 2024-11-09 08:39 | Outpatient (CLI) | payer OTHER, SELFPAY ==
--- NOTE | 2024-11-09 08:41 | XR_ITS ---
PROCEDURE INFORMATION: Exam: XR Chest Exam date and time: 11/09/2024 8:39 AM Age: 24 years old Clinical indication: Cough TECHNIQUE: Imaging protocol: Radiologic exam of the chest. Views: 2 views. COMPARISON: CR XR CHEST 2V 03/29/2024 12:03 AM FINDINGS: Lungs: Unremarkable. No consolidation. Pleural spaces: Unremarkable. No pleural effusion. No pneumothorax. Heart/Mediastinum: Unremarkable. No cardiomegaly. Bones/joints: Unremarkable. IMPRESSION: No acute findings.
--- OUTSIDE RECORDS SUMMARY | 2024-11-09 08:46 | XMS_ITS | Clinical Summary ---
Author Organization [facility] Address [address] [place] [address] Phone Care Team Providers Care Fork Truck Operator Name Role Phone Unavailable Primary Care Provider [...] ( season) 2023 11/09/2020, 10/12/2020 Influenza Vaccine (#1) 2024 Hepatitis B Vaccine Completed 2002, 2002, 2002 Pneumococcal Vaccine 0-49 Aged Out No longer eligible based on patient's age to complete this topic Insurance [facility] [id number] [facility] [id number]
[2024-11-09 22:16] LABS: Coronavirus 19, PCR Not Detected (NotDetected); Influenza A, PCR Not Detected (NotDetected); Influenza B, PCR Not Detected (NotDetected)
== END 2024-11-09 23:59 | disposition home or self-care (01) ==
LOC: LAB 08:41 → RAD 08:45
PROVIDERS: PCP Nurse Practitioner Family; Visit Provider Student in an Organized Health Care Education/Training Program
DX: R05.9 Cough, unspecified (principal); J02.9 Acute pharyngitis, unspecified
CPT/HCPCS: 71046; 87631

== ENCOUNTER 2024-11-10 07:52 | Outpatient (CLI) | payer OTHER, SELFPAY ==
--- OUTSIDE RECORDS SUMMARY | 2024-11-10 07:54 | XMS_ITS | Clinical Summary ---
Author Organization [facility] Address [address] [place] [address] Phone Care Team Providers Care Ski Top Trimmer Name Role Phone Unavailable Primary Care Provider [...] patient's age to complete this topic Insurance [facility] [id number] [facility] [id number]
[2024-11-10 08:09] LABS: Adenovirus F 40/41, stool Not Detected (NotDetected); Clostridium Difficile A/B, PCR Not Detected (NotDetected); Cyclospora Cayetanesis Not Detected (NotDetected); Plesimonas Shigalloides, PCR Not Detected (NotDetected); Salmonella, PCR Not Detected (NotDetected); Shiga-like toxin E coli Not Detected (NotDetected); Shigella Enterovasive E coli Not Detected (NotDetected); Vibrio, PCR Not Detected (NotDetected); Yersinia Entercolitica, PCR Not Detected (NotDetected)
== END 2024-11-10 23:59 | disposition home or self-care (01) ==
LOC: LAB 07:53
PROVIDERS: PCP Nurse Practitioner Family; Visit Provider Student in an Organized Health Care Education/Training Program
DX: R19.7 Diarrhea, unspecified (principal)
CPT/HCPCS: 87507

== ENCOUNTER 2024-12-03 14:45 | Outpatient (CLI) | payer OTHER, SELFPAY ==
[2024-12-03 19:31] LABS: Hematocrit 41.5 % (37.0-47.0); Hemoglobin 13.7 g/dL (12.2-16.2); Immature Granulocytes % 0.3 %; Mean Corpuscular HGB Conc 33.0 g/dL (31.8-35.4); Mean Corpuscular Hemoglobin 30.2 pg (27.0-31.2); Mean Corpuscular Volume 91.6 fl (81-99); Nucleated Red Blood Cells % 0 %; Platelet Count 355 K/mm3 (142-424); Red Blood Count 4.53 M/mm3 (4.20-5.40); Red Cell Distribution Width-SD 41.1 fL; White Blood Count 7.3 K/mm3 (4.8-10.8)
[2024-12-03 20:04] LABS: Alanine Aminotransferase 30 U/L (12-78); Albumin Level 4.6 g/dl (3.5-5.0); Albumin/Globulin Ratio 1.7 (1.1-1.8); Alkaline Phosphatase 125 U/L (38-126); Anion Gap 14.1 mEq/L (5-15); Aspartate Amino Transferase 40 U/L (14-36); Bilirubin,Total 0.3 mg/dl (0.2-1.3); Blood Urea Nitrogen 22 mg/dl (7-17); Calcium 9.7 mg/dl (8.4-10.2); Carbon Dioxide 24 mmol/L (22.0-30.0); Chloride 105 mmol/L (98-107); Creatinine,Serum 0.70 mg/dl (0.52-1.04); Estimated Glomerular Filt Rate 105 ml/min (>60); GFR (African American) 127 ML/MIN (>60); Globulin 2.7 g/dL (1.3-3.2); Glucose 97 mg/dl (74-100); Potassium 4.1 mmoL/L (3.5-5.1); Sodium 139 mmol/L (136-145); Total Protein,Serum 7.3 g/dl (6.3-8.2)
[2024-12-03 20:10] LABS: C-Reactive Protein 8.0 mg/L (0-4)
[2024-12-03 20:36] LABS: Thyroid Stimulating Hormone 10.80 uIU/mL (0.465-4.68)
--- OUTSIDE RECORDS SUMMARY | 2024-12-04 12:20 | XMS_ITS | Clinical Summary ---
Author Organization [facility] Address [address] [place] [address] Phone Care Team Providers Care [place]amboat Captain Name Role Phone Unavailable Primary Care Provider [...] patient's age to complete this topic Insurance [facility] [id number] [facility] [id number]
[2024-12-05 14:12] LABS: Antinuclear Antibodies (ANA) Negative (Negative)
== END 2024-12-03 23:59 | disposition home or self-care (01) ==
LOC: LAB.DROPOF 12-04 12:19
PROVIDERS: PCP Nurse Practitioner Family; Visit Provider Nurse Practitioner Family
DX: E03.9 Hypothyroidism, unspecified (principal); R53.83 Other fatigue; M25.50 Pain in unspecified joint; I10 Essential (primary) hypertension
CPT/HCPCS: 80053; 84443; 85025; 85651; 86140

== ENCOUNTER 2024-12-07 01:06 | Emergency (ER) | payer OTHER, SELFPAY ==
[2024-12-07 01:12] VITALS: BP 149/111; PULSE 96; RESP 16; TEMP 36.6; O2SAT 98; BMI 35.5
--- OUTSIDE RECORDS SUMMARY | 2024-12-07 01:17 | XMS_ITS | Clinical Summary ---
Author Organization [facility] Address [address] [place] [address] Phone Care Team Providers Care Agricultural Equipment Mechanic Name Role Phone Unavailable Primary Care Provider [...] patient's age to complete this topic Insurance [facility] [id number] [place] [address] [facility] [id number]
--- NOTE | 2024-12-07 01:29 | ECG_ITS ---
APPROVED REPORT Exam: Resting ECG HR:84 bpm ECG Measurements Heart Rate 84 AXES MT 138 P 32 QRSd 83 QRS 60 QT 345 T 40 QTc 386 Conclusion SINUS RHYTHM NONSPECIFIC T-WAVE ABNORMALITY No STEMI Electronically signed by : CATA MILLS, 12/07/2024 04:47:38
--- NOTE | 2024-12-07 01:29 | XR_ITS ---
PROCEDURE INFORMATION: Exam: XR Chest Exam date and time: 12/07/2024 2:05 AM Age: 24 years old Clinical indication: Other: Near syncope TECHNIQUE: Imaging protocol: Radiologic exam of the chest. Views: 1 view. COMPARISON: CR XR CHEST 2V 11/09/2024 8:39 AM FINDINGS: Lungs: Increased interstitial markings of the lung bases without focal consolidation. Pleural spaces: Unremarkable. No pleural effusion. No pneumothorax. Heart/Mediastinum: Cardiomegaly. Heart appears somewhat globular. Bones/joints: Unremarkable. IMPRESSION: 1. Cardiomegaly with globular appearance of the heart. This is new from prior comparison, suggest underlying pericardial effusion. Correlate clinically. 2. Lung findings suggest evolving pulmonary vascular congestion, correlate with heart function as tamponade can not be excluded by imaging.
--- NOTE | 2024-12-07 01:32 | ED_ITS ---
Discharge Plan Disposition Patient Disposition: Home, Self-Care Condition: Good Prescriptions Prescriptions: No Action fluticasone propionate [Flonase Allergy Relief] 50 mcg/actuation spray,suspension 1 spray intranasal DAILY Qty: 16 2RF Rx Instructions: administer into each nostril aripiprazole [Abilify] 15 mg tablet 7.5 mg PO HS Qty: 30 2RF trazodone 50 mg tablet 100 mg PO HS Qty: 60 2RF Rx Instructions: take 1-2 tablets at bedtime for sleep hydroxyzine pamoate 25 mg capsule 25 mg PO TID PRN (Reason: anxiety) Qty: 90 0RF levothyroxine 25 mcg capsule 25 mcg PO DAILY Qty: 30 2RF Referrals Follow up/Referrals: Loi Simpson APRN [Primary Care Provider, Family Practice] - See instructions Activity Restrictions/Add. Instructions Additional Instructions/Restrictions: You were evaluated in the ER and are believed to be appropriate for discharge at this time. Continue your home medications as prescribed. Drink plenty of water and stay well-hydrated as discussed. Make an appointment with your primary care doctor for reevaluation to discuss your headaches. Follow-up with cardiology at 9 AM on Sunday. Return to the ER with any new, worsening, or otherwise concerning symptoms. Clinical Impressions Clinical Impression: Pre-syncope, Anxiety Print Language Print Language: Swazi Discharge ED Provider: Diamante Jama Adult HPI General Chief complaint: Dizziness Stated complaint: CHAN, lightheaded, trouble breathing, body aches Time Seen by Provider: 12/07/24 01:21 Mode of Arrival: Ambulatory Source of Information: Patient Description of Symptoms (Recalled from ER Triage Doc. by RN): Patient reports headache/dizzines x2 months; saw pcp and was put on thyroid meds on sunday; states has not gotten better History of Present Illness HPI narrative: 24-year-old female presents to the ER complaining of episodic headache, lightheadedness. Patient states she was started on thyroid meds this week but has not noticed any change in any of her symptoms. She states for months she has been having episodes of lightheadedness where she feels like she could pass out but does not. She does not have any chest pain but states when they happen her chest sometimes feels briefly tight and her whole body feels crampy/painful at the same time. She states it happened earlier tonight while she was at work. No chest pain or difficulty breathing, she states her symptoms spontaneously resolved after a minute or 2. She states nothing specific seems to cause them or make them better. She states she does have a history of anxiety but does not know if she has ever had a panic attack. With her lightheadedness it feels like her vision starts to become tunnel vision but then resolves. She has not had any injuries. She does not have any symptoms at this time, no headache, dizziness, numbness, tingling, or weakness. Ambulatory into the ER. Notably patient reports that she does not have thunderclap onset of her headaches when they have happened previously. Patient has not actually passed out, falling, or had any other acute abnormalities like that. No nausea or vomiting, no diarrhea or constipation. No dysuria or hematuria. Patient states her last period was a few months ago but she has an IUD. She does not believe there is any chance she is . Patient reports when she has episodes of headache that she takes Tylenol. No fevers, cough, congestion, sore throat, or any other associated symptoms Related Data Previous Rx's ?Medication ?Instructions ?Recorded hydroxyzine pamoate 25 mg capsule 25 mg PO TID PRN anx iety #90 caps 11/24/24 fluticasone propionate 50 1 spray intranasal DAILY #16 grams 11/30/24 mcg/actuation nasal spray,suspension (Flonase Allergy Relief) aripiprazole 15 mg tablet (Abilify) 7.5 mg (1/2 x 15 m g) PO HS #30 tabs 12/02/24 trazodone 50 mg tablet 100 mg (2 x 50 mg) PO HS #60 tabs 12/02/24 levothyroxine 25 mcg capsule 25 mcg PO DAILY #30 caps 12/04/24 Allergies Allergy/AdvReac Type Severity Reaction Status Date / Time amoxicillin (AMOXICILLIN) AdvReac Mild Gastrointestinal Verified 12/03/24 13:35 Upset Penicillins AdvReac Mild Gastrointestinal Verified 12/03/24 13:35 Upset [facility] Disclaimer: The information contained in this section may have been updated after the patient was seen, as this information can be updated by other users. 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 Wrist pain Wrist pain Left serous otitis media Mood disorder Right ovarian cyst Acne Pelvic pain PCOS (polycystic ovarian syndrome) Thyroid disease History of anemia History of gastroesophageal reflux (GERD) Insomnia Migraine Surgical History History of esophagogastroduodenoscopy (EGD) History of tympanostomy tube placement Family History Other Diabetes Social History Smoking Status: Current every day smoker second hand exposure: No alcohol intake: never counseling given: No substance use type: denies use counseling given: No current occupational status: employed Travel in the last 8 weeks?: None adopted: No caregiver/support person: No foster care: No household members: family housing: house lives independently: No marital status: single number of children: 0 education level: high school current occupational exposures/hazards: No caffeine: Yes physical activity: none working smoke detector in home: Yes fire extinguisher in home: No carbon monox detector in home: Yes firearms in home: Yes firearms unloaded and locked: Yes do you feel safe at home: Yes victim of physical abuse: No victim of emotional abuse: No victim of sexual abuse: No would you like helpful sources: No Have you lived/traveled outside [place] in past 30 days?: No Contact w/someone who lives/traveled outside US past 30 days?: No Exposure to someone with infectious disease in past 14 days?: No Do you have a fever (greater than 100.4 F or 38 C)?: No Have you tested positive for COVID-19?: No Exposed to someone with COVID-19 in past 14 days?: No Do you have a sore throat?: No Do you have a cough?: No Do you have any weakness?: No Do you have any diarrhea?: No Are you experiencing any unusual bleeding?: No Do you have any muscle aches/pain?: No Do you have any abdominal pain?: No Are you experiencing loss of taste or smell?: No Other 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 Have you received the Flu Vaccine for this season: No Have you received the Pneumonia Vaccine: No ROS Obtained: Yes Systems reviewed as appropriate & no additional complaints except as documented Per HPI Physical Exam General General appearance: alert and in no apparent distress Head Head exam: atraumatic and normocephalic Eye Eye exam: Present PERRL and EOMI; Absent jaundice, conjunctival injection or nystagmus ENT ENT exam: Present mucous membranes moist Neck Neck exam: Present normal inspection and full ROM Chest Chest inspection: Present symmetric chest wall rise Respiratory Respiratory exam: Present normal lung sounds bilaterally; Absent respiratory distress, wheezes or stridor Cardiovascular Cardiovascular exam: Present regular rate and normal rhythm Abdominal Exam Abdominal exam: Present soft; Absent distention, tenderness, guarding or rebound Extremities Exam Extremities exam: Present full ROM; Absent edema, joint swelling or calf tenderness Back Exam Back exam: Present full ROM; Absent tenderness Neurological Exam Neurological exam: Present alert, oriented X3, CN II-XII intact and normal gait; Absent motor sensory deficit (Normal finger-nose and [id number], no cerebellar symptoms, NIH 0, GCS 15) Psychiatric Psychiatric exam: Present normal affect and normal mood Skin Skin exam: Present warm and dry Medical Decision Making Medical Records Medical records reviewed: Yes I reviewed the patient's medical records. Screening: Per USPSTF and CDC recommendations, given the prevalence of disease in our region, it is our hospital?s policy to screen for HIV and viral Hepatitis for all patients aged 18 and over and those with ongoing risk factors. Kulwant Inquiry Pt receiving controlled substance: No Vital Signs: 12/07/24 01:12 12/07/24 02:52 Temperature 97.9 F 97.9 F Temperature Source Oral Oral Pulse Rate 79 Pulse Rate [Right Radial] 96 H Respiratory Rate 16 16 Blood Pressure 131/89 Blood Pressure [Right Arm] 149/111 H Blood Pressure Mean [Right Arm] 123 Blood Pressure Source Automatic Cuff Blood Pressure Source [Right Arm] Automatic Cuff Blood Pressure Position Supine Blood Pressure Position [Right Arm] Sitting 02 Sat by Pulse Oximetry 98 Oxygen Delivery Method Room Air Room Air Lab Data Lab Results 12/07/24 01:14: WBC 7.3, RBC 4.35, Hgb 13.4, Hct 39.8, MCV 91.5, MCH 30.8, MCHC 33.7, RDW 12.1, Plt Count 331, MPV 10.6 H, Neut % (Auto) 39.0, Lymph % (Auto) 47.3, Wilkin % (Auto) 8.8, Eos % (Auto) 3.7, Baso % (Auto) 0.8, Neut # (Auto) 2.9, Lymph # (Auto) 3.5, Wilkin # (Auto) 0.6, Eos # (Auto) 0.3, Baso # (Auto) 0.1, D- Dimer 0.73 H, Sodium 139, Potassium 4.2, Chloride 107, Carbon Dioxide 23, Anion Gap 13.2, BUN 20 H, Creatinine 0.80, Estimated Creat Clear 174, Estimated GFR 90, Est GFR ( Amer) 109, Glucose 100, Calcium 9.3, Total Bilirubin 0.4, A ST 49 H, ALT 38, Alkaline Phosphatase 126, Troponin I < 0.01, Total Protein 7.4, Albumin 4.5, Globulin 2.9, Albumin/Globulin Ratio 1.6, TSH 7.03 H D, Free T4 0.92, Serum HCG, Qual Negative 12/07/24 01:14 12/07/24 01:14 Orders (Tests/Meds): ED MEDICATIONS Discontinued Medications Generic Name Dose Route Start Last Admin Trade Name Freq PRN Reason Stop Dose Admin Acetaminophen 1,000 mg 12/07/24 01:35 12/07/24 01:38 Acetaminophen 500mg Tab PO 12/07/24 01:36 1,000 mg ONCE ONE Administration Lactated Ringer's 1,000 mls @ 999 mls/hr 12/07/24 01:29 12/07/24 01:38 Lactated Ringer's 1000 Ml Bag IV 12/07/24 02:29 999 mls/hr .Q1H1M ONE Administration ORDERS Category Date Time Status CXR --portable [XR chest portable] Stat Exams 12/07/24 01:29 Completed POCUS Point of Care (ER Only) Stat Exams 12/07/24 02:33 Ordered CBC w/Auto Diff [Complete Blood Count Auto Diff] Stat Lab 12/07/24 01:14 Completed CMP [Comprehensive Metabolic Panel] Stat Lab 12/07/24 01:14 Completed D-Dimer Stat Lab 12/07/24 01:14 Completed Free T4 (Free Thyroxine) Stat Lab 12/07/24 01:14 Completed HCG Qualitative, Serum Stat Lab 12/07/24 01:14 Completed TSH [Thyroid Stimulating Hormone] Stat Lab 12/07/24 01:14 Completed Trop I [Troponin I] Stat Lab 12/07/24 01:14 Completed ECG Request Stat Y 12/07/24 01:29 Completed Medical Decision Narrative: In summary, this 24-year-old female with history of bipolar, thyroid dysfunction, PCOS presents to the emergency department today with brief lightheadedness that occurred at work. On initial evaluation patient is hemodynamically stable, afebrile, GCS 15, no neurologic deficits, independently ambulatory into the ER, cardiopulmonary exam benign, throughout her full exam is benign and unremarkable with nothing remarkable on neuroexam or elsewhere on her exam. Overall her exam is very reassuring and benign. Differential diagnosis includes but is not limited to thyroid abnormality, ACS, anxiety, panic attack, PE, arrhythmia, arrhythmogenic abnormality such as WPW, Brugada, prolonged QT, HCM, I considered the possibility of intracranial abnormality but with months of episodic symptoms that spontaneously resolve and no abnormalities on neuroexam I believe this to be highly unlikely and do not believe the patient requires any intracranial imaging. Based on these concerns, I ordered serum labs, cardiac workup, thyroid studies. ECG personally interpreted demonstrates sinus rhythm, rate 84, normal axis, normal VT and QTc, no STEMI, no WPW, no Brugada, no prolonged QT, no HCM. Patient received IV fluids for treatment. Labs personally reviewed demonstrate nonactionable CBC and CMP. Has very mild prerenal azotemia but is already receiving IV fluids. Troponin undetectably low less than 0.01 significantly reassuring since patient is having no chest pain or difficulty breathing and her ECG is benign. D-dimer 0.73, by years criteria PE is excluded. TSH is improved from just a few days ago even though patient just started thyroid medications this week. Free T4 normal. hCG negative.. Chest x-ray personally interpreted does not demonstrate acute intrathoracic pathology, radiology read comments that the cardiac silhouette appears enlarged, however I believe this is because the patient had poor inspiratory effort on this x-ray. Because radiology commented about the possibility of pericardial effusion, I added on [id number] ultrasound. I personally performed and interpreted this at bedside. There is no pericardial effusion, no tamponade, grossly normal cardiac ultrasound. See procedure note for details. On reassessment patient remains comfortable, well-appearing. She has had no repeat symptoms in the ER. She is appropriate for discharge at this time and comfortable with this plan. I have low suspicion for cardiac pathology contributing to patient's symptoms, however for further evaluation and Holter monitor I think it would be valuable for her to see cardiology. 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 She would like to be scheduled for 9 AM on 12/09/2024. This appointment slot was given to her in the cardiology follow-up book and she was provided an appointment card for reminder. Patient was given instructions on symptomatic management including I specifically recommended increased water intake, follow up instructions, and return precautions for the emergency department. Patient indicated understanding and was discharged in stable condition. Procedures Miscellaneous Procedure Procedure Performed: Limited Cardiac Ultrasound Indication: Presyncope Identified cardiac views: [-Cardiac parasternal long axis] [-Cardiac parasternal short axis] [-Cardiac apical four-chamber] [-Cardiac subxiphoid] Findings: Cardiac activity present, no gross wall motion abnormality, no pericardial effusion, no right heart strain Impression: Cardiac activity present, no gross wall motion abnormality, no pericardial effusion, no right heart strain Images were saved to permanent archive The study was technically adequate CPT: 60594 This study was performed by me, and I personally interpreted all images/videos. Based on my clinical judgement, these images were adequate and did not necessitate further imaging. Critical Care Critical Care Time Critical Care Time: No
[2024-12-07] MEDS: ACETAMINOPHEN 500MG TAB 1000 MG PO (01:38)
[2024-12-07] MEDS: LACTATED RINGERS 1000ML 1,000 ML 999 ML IV (01:38)
[2024-12-07 01:40] LABS: Hematocrit 39.8 % (37.0-47.0); Hemoglobin 13.4 g/dL (12.2-16.2); Immature Granulocytes % 0.4 %; Mean Corpuscular HGB Conc 33.7 g/dL (31.8-35.4); Mean Corpuscular Hemoglobin 30.8 pg (27.0-31.2); Mean Corpuscular Volume 91.5 fl (81-99); Nucleated Red Blood Cells % 0 %; Platelet Count 331 K/mm3 (142-424); Red Blood Count 4.35 M/mm3 (4.20-5.40); Red Cell Distribution Width-SD 40.7 fL; White Blood Count 7.3 K/mm3 (4.8-10.8)
[2024-12-07 01:49] LABS: HCG Qualitative, Serum Negative (Negative)
[2024-12-07 01:52] LABS: Alanine Aminotransferase 38 U/L (12-78); Albumin Level 4.5 g/dl (3.5-5.0); Albumin/Globulin Ratio 1.6 (1.1-1.8); Alkaline Phosphatase 126 U/L (38-126); Anion Gap 13.2 mEq/L (5-15); Aspartate Amino Transferase 49 U/L (14-36); Bilirubin,Total 0.4 mg/dl (0.2-1.3); Blood Urea Nitrogen 20 mg/dl (7-17); Calcium 9.3 mg/dl (8.4-10.2); Carbon Dioxide 23 mmol/L (22.0-30.0); Chloride 107 mmol/L (98-107); Creatinine Clearance Estimated 174 mL/min (50-200); Creatinine,Serum 0.80 mg/dl (0.52-1.04); Estimated Glomerular Filt Rate 90 ml/min (>60); GFR (African American) 109 ML/MIN (>60); Globulin 2.9 g/dL (1.3-3.2); Glucose 100 mg/dl (74-100); Potassium 4.2 mmoL/L (3.5-5.1); Sodium 139 mmol/L (136-145); Total Protein,Serum 7.4 g/dl (6.3-8.2)
[2024-12-07 01:56] LABS: D-Dimer 0.73 ug/mL (0.0-0.5)
[2024-12-07 02:06] LABS: Troponin I < 0.01 ng/ml (0.00-0.034)
[2024-12-07 02:10] LABS: Free T4 (Free Thyroxine) 0.92 ng/dl (0.78-2.19)
[2024-12-07 02:24] LABS: Thyroid Stimulating Hormone 7.03 uIU/mL (0.465-4.68)
[2024-12-07 02:52] VITALS: BP 131/89; PULSE 79; RESP 16; TEMP 36.6; O2SAT 98
== END 2024-12-07 03:00 | disposition home or self-care (01) ==
PROVIDERS: Emergency Provider Emergency Medicine; PCP Nurse Practitioner Family
DX: R55 Syncope and collapse (principal); F41.9 Anxiety disorder, unspecified; R51.9 Headache, unspecified; F17.200 Nicotine dependence, unspecified, uncomplicated
CPT/HCPCS: 71045; 80053; 84439; 84443; 84484; 84703; 85025; 85378; 96360; 99285; J7120

== ENCOUNTER 2024-12-09 09:27 | Outpatient (CLI) | payer OTHER, SELFPAY ==
--- OUTSIDE RECORDS SUMMARY | 2024-12-09 09:33 | XMS_ITS | Clinical Summary ---
Author Organization [facility] Address [address] [place] [address] Phone Care Team Providers Care Park Keeper Name Role Phone Unavailable Primary Care Provider [...] patient's age to complete this topic Insurance [facility] [id number] [facility] [id number]
== END 2024-12-09 23:59 | disposition home or self-care (01) ==
LOC: RT 09:28
PROVIDERS: PCP Nurse Practitioner Family; Visit Provider Physician Assistant
DX: I49.1 Atrial premature depolarization (principal); I49.3 Ventricular premature depolarization; R55 Syncope and collapse
CPT/HCPCS: 93270

== ENCOUNTER 2024-12-16 07:33 | Outpatient (CLI) | payer OTHER, SELFPAY ==
--- OUTSIDE RECORDS SUMMARY | 2024-12-16 07:35 | XMS_ITS | Clinical Summary ---
Author Organization [facility] Address [address] [place] [address] Phone Care Team Providers Care Rubbing Bed Operator Name Role Phone Unavailable Primary Care [...] patient's age to complete this topic Insurance [facility] [id number] [facility] [id number]
--- NOTE | 2024-12-16 08:00 | CA_ITS ---
APPROVED REPORT EXAM: Comprehensive 2D, Doppler, and color-flow Echocardiogram Java Programming Professor: Marybeth Ruiz RT(R) Ht: 5 ft 6 in Wt: 224lbs BSA: 2.10 BP: 138/88 mmHg Indications: near syncope, dyspnea 2D Dimensions EF AP4 66.00 % GL Strain -22.2 % M-Mode Dimensions RVDd 2.25 cm (0.9-2.6) LA Diam 3.12 cm (1.9-4.0) LVDd 4.57 cm (3.5-5.7) LVDs 3.39 cm (3.5-5.7) IVSd 0.75 cm (0.6-1.1) PWd 0.82 cm (0.6-1.1) EF (Teich) 50.90% FS 25.80% EDV (Teich) 95.90 mL ESV (Teich) 47.10 mL LV Diastology E Decel Time 167 (160-240 msec) E/A Ratio 1.3 Mitral Valve MV E Max Jc. 69.0 (40-130 cm/s) MV A Velocity 54.0 (40-130 cm/s) E/A Ratio 1.30 MV PHT 49.0 ms Left Ventricle The left ventricle is normal size. Left ventricular systolic function is normal. The left ventricular ejection fraction is within the normal range. There is normal left ventricular wall thickness. There is normal LV segmental wall motion. The left ventricular diastolic function is normal. LVEF is 55% Right Ventricle The right ventricle is normal size. The right ventricular systolic function is normal. Atria The left atrium size is normal. The right atrium size is normal. There is no color Doppler evidence of interatrial shunt. Aortic Valve The aortic valve opens well. There is no hemodynamically significant aortic valvular stenosis. No aortic regurgitation is present. Mitral Valve The mitral valve is normal in structure. No evidence of mitral valve stenosis. Trace mitral regurgitation is present. Tricuspid Valve The tricuspid valve leaflets are thin and pliable. Trace tricuspid regurgitation. There is insufficient TR jet to estimate RVSP. Pulmonic Valve The pulmonary valve is grossly normal in structure. Mild pulmonic valve regurgitation is present. Great Vessels The aortic root is normal in size. IVC is normal in size and collapses >50% with inspiration. Pericardium There is no pericardial effusion. Other Information Study Quality: Fair Conclusion Normal biventricular systolic function. Mild PI. Electronically signed by : Yodit Carver MD 12/16/2024 15:13:09
== END 2024-12-16 23:59 | disposition home or self-care (01) ==
LOC: RT 07:33
PROVIDERS: PCP Nurse Practitioner Family; Visit Provider Physician Assistant
DX: I37.1 Nonrheumatic pulmonary valve insufficiency (principal); R55 Syncope and collapse
CPT/HCPCS: 93306

== ENCOUNTER 2025-01-12 08:01 | Emergency (ER) | payer OTHER, SELFPAY ==
[2025-01-12 08:09] VITALS: BP 145/100; PULSE 100; RESP 18; TEMP 37; O2SAT 99; BMI 33.9
--- NOTE | 2025-01-12 08:15 | XR_ITS ---
FINAL REPORT CLINICAL HISTORY: foreign body. laceration on medial side of forefoot. FINDINGS: RIGHT FOOT 2 views of the right foot were obtained. There is no acute fracture or dislocation. Visualized joint spaces are normally aligned. Soft tissues are unremarkable. No radiopaque foreign body is identified. IMPRESSION: No acute bony abnormality or radiopaque foreign body. Reviewed, Interpreted and Dictated by Isaías Newman MD Transcribed by Debbie Riggs Authenticated and [facility]
--- NOTE | 2025-01-12 08:26 | ED_ITS ---
Discharge Plan Disposition Patient Disposition: Home, Self-Care Prescriptions Prescriptions: New cephalexin 500 mg capsule 500 mg PO QID 7 Days Qty: 28 0RF No Action hydroxyzine pamoate 25 mg capsule 25 mg PO TID PRN (Reason: anxiety) Qty: 90 0RF aripiprazole [Abilify] 15 mg tablet 7.5 mg PO HS Qty: 30 2RF trazodone 50 mg tablet 100 mg PO HS Qty: 60 2RF Rx Instructions: take 1-2 tablets at bedtime for sleep levothyroxine 25 mcg capsule 25 mcg PO DAILY Qty: 30 2RF Referrals Follow up/Referrals: Loi Simpson APRN [Primary Care Provider, Family Practice] - See instructions Activity Restrictions/Add. Instructions Additional Instructions/Restrictions: You had a retained foreign body in your foot that appeared to be some type of bone of unclear origin. No retained foreign body noted on x-ray. As discussed this could have introduced significant suly of bacteria deep into your foot however we irrigated this and gave you prophylactic antibiotics. I recommend that you keep this clean with soap and water and topical antibiotic ointment namely Neosporin at least changing dressings 2 times a day. Return with any significant spreading redness pus coming from the wound high fevers or other concerns. The wound will heal by secondary intention being able close up on its own. Clinical Impressions Clinical Impression: Foreign body in foot Instructions Patient Instructions: DI for Skin Abscess Print Language Print Language: [place] Discharge ED Provider: Blaise Celestin General Adult HPI General Chief complaint: Skin/Abscess/Foreign Body Stated complaint: Foreign object in R foot Time Seen by Provider: 01/12/25 08:04 Mode of Arrival: Ambulatory Source of Information: Patient Description of Symptoms (Recalled from ER Triage Doc. by RN): Pt reports she was outside walking around barefoot and stepped on a foreign object with right foot. History of Present Illness HPI narrative: 24-year-old presenting today with foreign body in her foot after stepping on an unknown object at home. Unknown tetanus status. Related Data Previous Rx's ?Medication ?Instructions ?Recorded aripiprazole 15 mg tablet (Abilify) 7.5 mg (1/2 x 15 m g) PO HS #30 tabs 12/02/24 trazodone 50 mg tablet 100 mg (2 x 50 mg) PO HS #60 tabs 12/02/24 levothyroxine 25 mcg capsule 25 mcg PO DAILY #30 caps 12/04/24 hydroxyzine pamoate 25 mg capsule 25 mg PO TID PRN anx iety #90 caps 12/23/24 cephalexin 500 mg capsule 500 mg PO QID 7 days #28 cap s 01/12/25 Allergies Allergy/AdvReac Type Severity Reaction Status Date / Time amoxicillin (AMOXICILLIN) AdvReac Mild Gastrointestinal Verified 12/09/24 08:54 Upset Penicillins AdvReac Mild Gastrointestinal Verified 12/09/24 08:54 Upset PFSH PFSH Disclaimer: The information contained in this section may have been updated after the patient was seen, as this information can be updated by other users. 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 (Updated 01/12/25 @ 08:43 by Blaise Celestin MD) Mood disorder Right ovarian cyst Pelvic pain PCOS (polycystic ovarian syndrome) Thyroid disease History of anemia History of gastroesophageal reflux (GERD) Insomnia Migraine Surgical History History of esophagogastroduodenoscopy (EGD) History of tympanostomy tube placement Family History Other Diabetes Social History Smoking Status: Never smoker second hand exposure: No alcohol intake: never counseling given: No substance use type: denies use counseling given: No current occupational status: employed Travel in the last 8 weeks?: None adopted: No caregiver/support person: No foster care: No household members: family housing: house lives independently: No marital status: single number of children: 0 education level: high school current occupational exposures/hazards: No caffeine: Yes physical activity: none working smoke detector in home: Yes fire extinguisher in home: No carbon monox detector in home: Yes firearms in home: Yes firearms unloaded and locked: Yes do you feel safe at home: Yes victim of physical abuse: No victim of emotional abuse: No victim of sexual abuse: No would you like helpful sources: No Have you lived/traveled outside [place] in past 30 days?: No Contact w/someone who lives/traveled outside [place] past 30 days?: No Exposure to someone with infectious disease in past 14 days?: No Do you have a fever (greater than 100.4 F or 38 C)?: No Have you tested positive for COVID-19?: No Exposed to someone with COVID-19 in past 14 days?: No Do you have a sore throat?: No Do you have a cough?: No Do you have any weakness?: No Do you have any diarrhea?: No Are you experiencing any unusual bleeding?: No Do you have any muscle aches/pain?: No Do you have any abdominal pain?: No Are you experiencing loss of taste or smell?: No Other 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 Have you received the Flu Vaccine for this season: No Have you received the Pneumonia Vaccine: No ROS Obtained: Yes All systems reviewed & no additional complaints except as documented Physical Exam General General appearance: alert and in no apparent distress Respiratory Respiratory exam: Present normal lung sounds bilaterally Cardiovascular Cardiovascular exam: Present regular rate Extremities Exam Extremities exam: Present other (On the medial aspect of the plantar component of the foot on the right there is a large bony foreign body retained with serrated edges unable to be directly pulled out) Neurological Exam Neurological exam: Present alert Medical Decision Making Medical Records Screening: Per USPSTF and CDC recommendations, given the prevalence of disease in our region, it is our hospital?s policy to screen for HIV and viral Hepatitis for all patients aged 18 and over and those with ongoing risk factors. [place] Inquiry Pt receiving controlled substance: No Vital Signs: 01/12/25 08:09 Temperature 98.6 F Temperature Source Oral Pulse Rate [Right Brachial] 100 H Respiratory Rate 18 Blood Pressure [Right Arm] 145/100 H Blood Pressure Mean [Right Arm] 115 Blood Pressure Source [Right Arm] Automatic Cuff Blood Pressure Position [Right Arm] Sitting 02 Sat by Pulse Oximetry 99 Oxygen Delivery Method Room Air Orders (Tests/Meds): ED MEDICATIONS Discontinued Medications Generic Name Dose Route Start Last Admin Trade Name Freq PRN Reason Stop Dose Admin Cephalexin HCl 500 mg 01/12/25 08:18 Cephalexin 500mg Capsule PO 01/12/25 08:19 ONCE ONE Ondansetron HCl 4 mg 01/12/25 08:21 Ondansetron 4mg Odt SL 01/12/25 08:22 ONCE ONE Tetanus/Reduced Diphtheria/Acell Pertussis 0.5 ml 01/12/25 08:18 Tet/Diphth/Pert-Adult 0.5ml Syringe IM 01/12/25 08:19 .ONCE ONE ORDERS Category Date Time Status XR foot RT 2V Stat Exams 01/12/25 08:15 Taken Medical Decision Narrative: 24-year-old with above history and physical with a retained bony foreign body in her foot. Did require an incision to get loose as it had serrated edges. Extensive irrigation was performed it was cleaned further and antibiotic ointment were applied. Prophylactic antibiotics were prescribed. And patient was given return precautions as she is still at high risk for developing an infection. No perforation or puncture wound through a rubber soled shoe. She was barefoot when this happened. Return precautions emphasized patient was dis charged in stable condition. Procedures Foreign Body Removal Time Out Performed: No Site: right Description of foreign body: other (Bone) Sedation/Analgesia: none and other (Did use 1% lidocaine with epinephrine 5 cc injected into the wound) Technique: manual removal and incision made to facilitate removal Confirmed by:: direct visualization and radiograph Complications: none Post-procedure exam: awake, alert Neurovascular: normal distal pulse, normal capillary fill, distal light touch sensation intact, distal motor function normal, no signs of compartment syndrome and no change from pre-procedure Critical Care Critical Care Time Critical Care Time: No
[2025-01-12] MEDS: TET/DIPHTH/PERT-ADULT 0.5ML SYRINGE 0.5 ML IM (09:00)
[2025-01-12] MEDS: ONDANSETRON 4MG ODT 4 MG SL (09:00)
[2025-01-12 09:11] VITALS: BP 129/96; PULSE 86; RESP 16; TEMP 37; O2SAT 99
[2025-01-12] MEDS: BACITRACIN OINT 0.9GM UDP 1 EACH TP (09:20)
[2025-01-12] MEDS: LIDOCAINE 2% W/EPI 1:100,000 20ML VIAL 20 ML IJ (09:21)
== END 2025-01-12 09:22 | disposition home or self-care (01) ==
PROVIDERS: Emergency Provider Student in an Organized Health Care Education/Training Program; PCP Nurse Practitioner Family
DX: S90.851A Superficial foreign body, right foot, initial encounter (principal); W45.8XXA Other foreign body or object entering through skin, initial encounter
CPT/HCPCS: 10120; 73620; 90471; 90715; 99283; Q0162